=== PATIENT | male | born 1945 | race Caucasian/White ===

== ENCOUNTER 2016-08-08 09:12 | Outpatient (RCR) | payer MEDICARE, MEDICAID ==
--- OUTSIDE RECORDS SUMMARY | 2016-05-16 10:37 | XMS REPORT | Continuity of Care Document ---
Author Author [facility] Organization [facility] Address Unknown Phone Unavailable Care Team Providers Care Coordinator Of Placement Name Role Phone Angela Iam PCP [phone] Source Comments Some departments are not documenting in the electronic medical record. If you do not see the information that you expected, contact Release of Information in the Health Information Management department at [phone] for further assistance in locating additional records.[facility] Active Allergies and Adverse Reactions No Known Allergies Current Medications Prescription Sig. Disp. Refills Start End Date Status Date NAPROXEN SODIUM (ALEVE Take by mouth as Needed. Active PO) omeprazole DR(+) Take 20 mg by mouth Active (PRILOSEC) 20 mg capsule daily. aspirin EC 81 mg tablet Take 81 mg by mouth Active daily. HEPARIN SODIUM,PORCINE Use as directed. Active (HEPARIN (PORCINE) MISC) imiquimod(+) (ALDARA) 5 % Apply to affected area 24 Each 3 11/05/19 Active topical cream every 7 days. 16 niacin (NIACIN) 100 mg Take 500 mg by mouth Active tab three times daily. 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 Basal cell carcinoma 08/09/2012 Social History Tobacco Use Types Packs/Day Years Used Date Former Smoker Pipe 15 Quit: 09/21/2014 Smokeless Tobacco: Never Used Tobacco Cessation: Counseling Given: No Comments: 1 pouch lasts 4.5 days Alcohol Use Drinks/Week oz/Week Comments No Last Filed Vital Signs Vital Sign Reading Time Taken Blood Pressure 118/68 11/05/2015 8:07 AM CDT Pulse 72 11/05/2015 8:07 AM CDT Temperature 36.4 C (97.5 F) 05/31/2015 4:45 PM CANDLES POURER Respiratory Rate 16 11/05/2015 8:07 AM CDT Height 1.727 m (5' 8") 02/07/2016 10:47 AM CDT Weight 112.492 kg (248 lb) 02/07/2016 10:47 AM CDT Body Mass Index 37.72 02/07/2016 10:47 AM CDT Oxygen Saturation 99% 05/31/2015 4:45 PM CANDLES POURER Plan of Care Date Type Specialty Providers Description 07/31/2016 Appointment Dermatology Arjun Bowie MD [address] [facility] [address] [place] [address] [phone] (Fax) Health Maintenance Due Date Last Done Comments Hepatitis C Screening 1945 Physical (Comprehensive) 1954 Exam Pertussis Vaccine 1958 Tetanus Vaccine 02/29/1964 Colorectal Cancer 1997 Screening Shingles Vaccine 2007 Prevnar/Pneumovax (#1) 02/29/2012 Influenza Vaccine 03/23/2016 Results from Last 3 Months Not on file
[2016-06-02 10:10] LABS: BASOPHILS % (AUTO) 1 % (0-10); EOSINOPHILS # (AUTO) 0.2 10^3/uL (0.0-0.3); EOSINOPHILS % (AUTO) 2 % (0-10); LYMPHOCYTES # (AUTO) 2.4 X 10^3 (1.0-4.0); LYMPHOCYTES % (AUTO) 29 % (12-44); MEAN CORPUSCULAR HEMOGLOBIN 33 PG (25-34); MEAN CORPUSCULAR HGB CONC 36 G/DL (32-36); MEAN CORPUSCULAR VOLUME 92 FL (80-99); MEAN PLATELET VOLUME 9.3 FL (7.4-10.4); MONOCYTES # (AUTO) 0.9 X 10^3 (0.0-1.0); MONOCYTES % (AUTO) 10 % (0-12); NEUTROPHILS # (AUTO) 4.9 X 10^3 (1.8-7.8); NEUTROPHILS % (AUTO) 59 % (42-75); PLATELET COUNT 297 10^3/uL (130-400); RED BLOOD COUNT 4.54 10^6/uL (4.35-5.85); RED CELL DISTRIBUTION WIDTH 12.6 % (10.0-14.5); WHITE BLOOD COUNT 8.4 10^3/uL (4.3-11.0)
[2016-06-02 10:40] LABS: ALANINE AMINOTRANSFERASE 50 U/L (0-55); ALBUMIN 4.3 G/DL (3.2-4.5); ANION GAP 8 MMOL/L (5-14); ASPARTATE AMINO TRANSFERASE 23 U/L (5-34); BILIRUBIN,TOTAL 0.7 MG/DL (0.1-1.0); BLOOD UREA NITROGEN 16 MG/DL (7-18); BUN/CREATININE RATIO 14; CALCIUM 9.1 MG/DL (8.5-10.1); CARBON DIOXIDE 25 MMOL/L (21-32); CHLORIDE 106 MMOL/L (98-107); CREATININE SERUM 1.17 MG/DL (0.60-1.30); GFR ESTIMATED > 60; GLUCOSE 94 MG/DL (70-105); SODIUM 139 MMOL/L (135-145)
[2016-06-27 09:02] LABS: BASOPHILS % (AUTO) 0 % (0-10); EOSINOPHILS # (AUTO) 0.2 10^3/uL (0.0-0.3); EOSINOPHILS % (AUTO) 2 % (0-10); LYMPHOCYTES % (AUTO) 24 % (12-44); MEAN CORPUSCULAR HEMOGLOBIN 33 PG (25-34); MEAN CORPUSCULAR HGB CONC 35 G/DL (32-36); MEAN CORPUSCULAR VOLUME 93 FL (80-99); MEAN PLATELET VOLUME 9.2 FL (7.4-10.4); MONOCYTES # (AUTO) 0.7 X 10^3 (0.0-1.0); MONOCYTES % (AUTO) 9 % (0-12); NEUTROPHILS # (AUTO) 5.3 X 10^3 (1.8-7.8); NEUTROPHILS % (AUTO) 64 % (42-75); PLATELET COUNT 282 10^3/uL (130-400); RED BLOOD COUNT 4.38 10^6/uL (4.35-5.85); RED CELL DISTRIBUTION WIDTH 12.2 % (10.0-14.5); WHITE BLOOD COUNT 8.2 10^3/uL (4.3-11.0)
[2016-06-27 09:37] LABS: ALANINE AMINOTRANSFERASE 42 U/L (0-55); ALBUMIN 4.1 G/DL (3.2-4.5); ANION GAP 6 MMOL/L (5-14); ASPARTATE AMINO TRANSFERASE 19 U/L (5-34); BILIRUBIN,TOTAL 0.5 MG/DL (0.1-1.0); BLOOD UREA NITROGEN 16 MG/DL (7-18); BUN/CREATININE RATIO 13; CALCIUM 9.1 MG/DL (8.5-10.1); CARBON DIOXIDE 24 MMOL/L (21-32); CHLORIDE 109 MMOL/L (98-107); CREATININE SERUM 1.19 MG/DL (0.60-1.30); GFR ESTIMATED > 60; GLUCOSE 104 MG/DL (70-105); LACTATE DEHYDROGENASE 212 U/L (125-220); SODIUM 139 MMOL/L (135-145); TOTAL PROTEIN 6.7 G/DL (6.4-8.2)
[~2016-08-08 09:12] MED LIST: ASPI-266 PO; NAPR220C11 PO; OMEP-10 PO
== END 2016-08-14 | disposition home or self-care (01) ==
LOC: ONC 09:12
PROVIDERS: ATTEND Internal Medicine Hematology & Oncology
DX: Z08 Encounter for follow-up examination after completed treatment for malignant neoplasm (principal); Z85.048 Personal history of other malignant neoplasm of rectum, rectosigmoid junction, and anus; Z85.820 Personal history of malignant melanoma of skin; I89.0 Lymphedema, not elsewhere classified; Z87.01 Personal history of pneumonia (recurrent); Z79.899 Other long term (current) drug therapy; Z45.2 Encounter for adjustment and management of vascular access device
CPT/HCPCS: 36591; 80053; 82378; 83615; 85025; 96523; 99213

== ENCOUNTER 2016-12-12 09:08 | Outpatient (RCR) | payer MEDICARE, MEDICAID ==
--- OUTSIDE RECORDS SUMMARY | 2016-09-19 08:02 | XMS REPORT | Continuity of Care Document ---
Author Author [facility] Organization [facility] Address Unknown Phone Unavailable Care Team Providers Care Ager Tender Name Role Phone Angela Iam PCP [phone] Source Comments Some departments are not documenting in the electronic medical record. If you do not see the information that you expected, contact Release of Information in the Health Information Management department at [phone] for further assistance in locating additional records.[facility] Active Allergies and Adverse Reactions No Known [...] by mouth Active tab three times daily. ketoconazole (NIZORAL) 2 Lather into scalp 3 times 120 mL 11 07/31/19 Active % topical shampoo weekly, leave in 10-15 17 minutes before rinsing. 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 SERVICES TECHNICIAN Respiratory Rate 16 11/05/2015 8:07 AM CDT Height 1.727 m (5' 8") 07/31/2016 11:09 AM VISITOR SERVICES TECHNICIAN Weight 108.773 kg (239 lb 12.8 07/31/2016 11:09 AM VISITOR SERVICES TECHNICIAN oz) Body Mass Index 36.47 07/31/2016 11:09 AM VISITOR SERVICES TECHNICIAN Oxygen Saturation 99% 05/31/2015 4:45 PM VISITOR SERVICES TECHNICIAN Plan of Care Date Type Specialty Providers Description 01/25/2017 Appointment Dermatology Arjun Bowie MD [address] [facility] [address] [place] [address] [phone] (Fax) Health Maintenance Due Date Last Done Comments Hepatitis C Screening 1945 Physical (Comprehensive) 1954 Exam Pertussis Vaccine 1958 Tetanus Vaccine 02/29/1964 Colorectal Cancer 1997 Screening Shingles Vaccine 2007 Prevnar/Pneumovax (#1) 02/29/2012 Influenza Vaccine 03/23/2016 Results from Last 3 Months Not on file
== END 2016-12-18 | disposition home or self-care (01) ==
LOC: ONC 09:08
PROVIDERS: ATTEND Internal Medicine Hematology & Oncology
DX: Z08 Encounter for follow-up examination after completed treatment for malignant neoplasm (principal); Z85.048 Personal history of other malignant neoplasm of rectum, rectosigmoid junction, and anus; Z85.820 Personal history of malignant melanoma of skin; I89.0 Lymphedema, not elsewhere classified; Z87.01 Personal history of pneumonia (recurrent); Z79.899 Other long term (current) drug therapy; Z45.2 Encounter for adjustment and management of vascular access device
CPT/HCPCS: 96523

== ENCOUNTER 2017-04-10 10:22 | Outpatient (RCR) | payer MEDICARE, MEDICAID ==
[2017-01-17 15:23] LABS: BASOPHILS % (AUTO) 0 % (0-10); EOSINOPHILS # (AUTO) 0.2 10^3/uL (0.0-0.3); EOSINOPHILS % (AUTO) 1 % (0-10); LYMPHOCYTES # (AUTO) 2.1 X 10^3 (1.0-4.0); LYMPHOCYTES % (AUTO) 20 % (12-44); MEAN CORPUSCULAR HEMOGLOBIN 33 PG (25-34); MEAN CORPUSCULAR HGB CONC 36 G/DL (32-36); MEAN CORPUSCULAR VOLUME 92 FL (80-99); MEAN PLATELET VOLUME 9.2 FL (7.4-10.4); MONOCYTES # (AUTO) 0.7 X 10^3 (0.0-1.0); MONOCYTES % (AUTO) 7 % (0-12); NEUTROPHILS # (AUTO) 7.4 X 10^3 (1.8-7.8); NEUTROPHILS % (AUTO) 71 % (42-75); PLATELET COUNT 313 10^3/uL (130-400); RED BLOOD COUNT 4.56 10^6/uL (4.35-5.85); RED CELL DISTRIBUTION WIDTH 12.4 % (10.0-14.5); WHITE BLOOD COUNT 10.4 10^3/uL (4.3-11.0)
[2017-01-17 15:56] LABS: BILIRUBIN,TOTAL 0.3 MG/DL (0.1-1.0); CALCIUM 9.3 MG/DL (8.5-10.1); CREATININE SERUM 1.27 MG/DL (0.60-1.30); ICTERUS 0.1 (-100-1.9); POTASSIUM 4.2 MMOL/L (3.6-5.0); TOTAL PROTEIN 8.2 GM/DL (6.4-8.2)
== END 2017-04-17 | disposition home or self-care (01) ==
LOC: ONC 10:22
PROVIDERS: ATTEND Internal Medicine Hematology & Oncology
DX: Z08 Encounter for follow-up examination after completed treatment for malignant neoplasm (principal); Z85.048 Personal history of other malignant neoplasm of rectum, rectosigmoid junction, and anus; Z85.820 Personal history of malignant melanoma of skin; I89.0 Lymphedema, not elsewhere classified; Z87.01 Personal history of pneumonia (recurrent); Z79.899 Other long term (current) drug therapy; Z45.2 Encounter for adjustment and management of vascular access device
CPT/HCPCS: 36591; 80053; 82378; 83615; 85025; 96523

== ENCOUNTER → 2017-08-20 | Outpatient (RCR) | payer MEDICARE, MEDICAID ==
[2017-07-10 08:58] LABS: BASOPHILS % (AUTO) 0 % (0-10); EOSINOPHILS # (AUTO) 0.2 10^3/uL (0.0-0.3); EOSINOPHILS % (AUTO) 2 % (0-10); HEMATOCRIT 40 % (40-54); HEMOGLOBIN 14.2 G/DL (13.3-17.7); LYMPHOCYTES # (AUTO) 2.2 X 10^3 (1.0-4.0); LYMPHOCYTES % (AUTO) 26 % (12-44); MEAN CORPUSCULAR HEMOGLOBIN 33 PG (25-34); MEAN CORPUSCULAR HGB CONC 35 G/DL (32-36); MEAN CORPUSCULAR VOLUME 95 FL (80-99); MEAN PLATELET VOLUME 9.2 FL (7.4-10.4); MONOCYTES # (AUTO) 0.9 X 10^3 (0.0-1.0); MONOCYTES % (AUTO) 11 % (0-12); NEUTROPHILS # (AUTO) 5.1 X 10^3 (1.8-7.8); NEUTROPHILS % (AUTO) 60 % (42-75); PLATELET COUNT 261 10^3/uL (130-400); RED BLOOD COUNT 4.25 10^6/uL (4.35-5.85); WHITE BLOOD COUNT 8.5 10^3/uL (4.3-11.0)
[2017-07-10 09:18] LABS: ALANINE AMINOTRANSFERASE 39 U/L (0-55); ALBUMIN 3.9 GM/DL (3.2-4.5); ALKALINE PHOSPHATASE 48 U/L (40-136); BILIRUBIN,TOTAL 0.4 MG/DL (0.1-1.0); BUN/CREATININE RATIO 17; CALCIUM 8.9 MG/DL (8.5-10.1); CARBON DIOXIDE 25 MMOL/L (21-32); CHLORIDE 109 MMOL/L (98-107); CREATININE SERUM 1.05 MG/DL (0.60-1.30); GFR ESTIMATED > 60; GLUCOSE 94 MG/DL (70-105); POTASSIUM 4.2 MMOL/L (3.6-5.0); SODIUM 141 MMOL/L (135-145); TOTAL PROTEIN 6.6 GM/DL (6.4-8.2)
== END | disposition home or self-care (01) ==
LOC: ONC 05-22 10:07
PROVIDERS: ATTEND Internal Medicine Hematology & Oncology
DX: Z08 Encounter for follow-up examination after completed treatment for malignant neoplasm (principal); Z85.048 Personal history of other malignant neoplasm of rectum, rectosigmoid junction, and anus; Z85.820 Personal history of malignant melanoma of skin; I89.0 Lymphedema, not elsewhere classified; Z87.01 Personal history of pneumonia (recurrent); Z79.899 Other long term (current) drug therapy; Z45.2 Encounter for adjustment and management of vascular access device
CPT/HCPCS: 36591; 80053; 82378; 83615; 85025; 96523

== ENCOUNTER 2017-12-25 08:30 | Outpatient (RCR) | payer MEDICARE, MEDICAID ==
[2017-12-25 09:09] LABS: BASOPHILS % (AUTO) 0 % (0-10); EOSINOPHILS # (AUTO) 0.2 10^3/uL (0.0-0.3); EOSINOPHILS % (AUTO) 2 % (0-10); HEMATOCRIT 41 % (40-54); HEMOGLOBIN 14.5 G/DL (13.3-17.7); LYMPHOCYTES # (AUTO) 2.2 X 10^3 (1.0-4.0); LYMPHOCYTES % (AUTO) 29 % (12-44); MEAN CORPUSCULAR HEMOGLOBIN 33 PG (25-34); MEAN CORPUSCULAR HGB CONC 35 G/DL (32-36); MEAN CORPUSCULAR VOLUME 95 FL (80-99); MEAN PLATELET VOLUME 9.4 FL (7.4-10.4); MONOCYTES # (AUTO) 0.9 X 10^3 (0.0-1.0); MONOCYTES % (AUTO) 12 % (0-12); NEUTROPHILS # (AUTO) 4.4 X 10^3 (1.8-7.8); NEUTROPHILS % (AUTO) 57 % (42-75); PLATELET COUNT 278 10^3/uL (130-400); RED BLOOD COUNT 4.36 10^6/uL (4.35-5.85); RED CELL DISTRIBUTION WIDTH 12.4 % (10.0-14.5); WHITE BLOOD COUNT 7.7 10^3/uL (4.3-11.0)
[2017-12-25 09:52] LABS: ALANINE AMINOTRANSFERASE 53 U/L (0-55); ALBUMIN 4.1 GM/DL (3.2-4.5); ALKALINE PHOSPHATASE 55 U/L (40-136); BILIRUBIN,TOTAL 0.6 MG/DL (0.1-1.0); BUN/CREATININE RATIO 17; CARBON DIOXIDE 21 MMOL/L (21-32); CHLORIDE 109 MMOL/L (98-107); CREATININE SERUM 1.03 MG/DL (0.60-1.30); GFR ESTIMATED > 60; GLUCOSE 103 MG/DL (70-105); POTASSIUM 4.3 MMOL/L (3.6-5.0); SODIUM 139 MMOL/L (135-145); TOTAL PROTEIN 6.9 GM/DL (6.4-8.2)
== END 2017-12-31 | disposition home or self-care (01) ==
LOC: ONC 08:30
PROVIDERS: ATTEND Internal Medicine Hematology & Oncology
DX: Z08 Encounter for follow-up examination after completed treatment for malignant neoplasm (principal); Z85.048 Personal history of other malignant neoplasm of rectum, rectosigmoid junction, and anus; Z85.820 Personal history of malignant melanoma of skin; I89.0 Lymphedema, not elsewhere classified; Z87.01 Personal history of pneumonia (recurrent); Z79.899 Other long term (current) drug therapy; Z45.2 Encounter for adjustment and management of vascular access device
CPT/HCPCS: 36591; 80053; 85025; 96523

== ENCOUNTER 2018-03-19 11:10 | Outpatient (RCR) | payer MEDICARE, MEDICAID | END 2018-03-22 | disposition home or self-care (01) | LOC: ONC 11:10 | PROVIDERS: ATTEND Internal Medicine Hematology & Oncology | DX: Z08 Encounter for follow-up examination after completed treatment for malignant neoplasm (principal); Z85.048 Personal history of other malignant neoplasm of rectum, rectosigmoid junction, and anus; Z85.820 Personal history of malignant melanoma of skin; I89.0 Lymphedema, not elsewhere classified; Z87.01 Personal history of pneumonia (recurrent); Z79.899 Other long term (current) drug therapy; Z45.2 Encounter for adjustment and management of vascular access device | CPT/HCPCS: 96523 ==

== ENCOUNTER 2018-06-10 05:38 | Outpatient (CLI) | payer MEDICARE, MEDICAID ==
[~2018-06-10] VITALS: Ht 172.7 cm; Wt 117.9 kg
[2018-06-10] MEDS ORDERED: NIAC500T8 PO (14:05)
[2018-06-10] MEDS ORDERED: NAPR220C46 PO (14:05)
[2018-06-10] MEDS ORDERED: ASPI-999 PO (14:05)
== END 2018-06-10 14:12 | disposition home or self-care (01) ==
LOC: PREOP 05:38
PROVIDERS: ATTEND Surgery
DX: Z01.818 Encounter for other preprocedural examination (principal)

== ENCOUNTER 2018-06-17 08:27 | Day surgery (SDC) | payer MEDICARE, MEDICAID ==
[~2018-06-17] VITALS: Ht 172.7 cm; Wt 117.9 kg
[~2018-06-17 08:27] MED LIST changes: +ASPI-999 PO; +NAPR220C46 PO; +NIAC500T8 PO
[2018-06-17] MEDS ORDERED: NS IV 500 ML 500 ML ONE (08:36)
[2018-06-17] MEDS ORDERED: NS IV 500 ML 500 ML IV PRN (08:39)
[2018-06-17] MEDS ORDERED: MIDAZOLAM 2 MG/2 ML (VERSED) VIAL IVP ONE (08:45)
[2018-06-17] MEDS ORDERED: fentaNYL INJECTION 100 MCG/2 ML AMP IVP ONE (08:45)
[2018-06-17 09:03] VITALS: BP 165/79
--- OUTSIDE RECORDS SUMMARY | 2018-06-17 09:05 | XMS REPORT ---
Author Author ALICE ORDOÑEZ Organization [employer] Address Unknown Phone Unavailable Care Team Providers Care Threader Operator Name Role Phone ALICE ORDOÑEZ CP Unavailable Allergies, Adverse Reactions, Alerts Substance Reaction Event Type N.K.D.A. Info Not Available Non Drug Allergy Problems Problem Type Condition Code Onset Dates Condition Status Problem Esophageal reflux 530.81 Active Problem Malignant neoplasm of rectum 154.1 Active Problem TDAP DX V06.1 Active Assessment Foot pain, left M79.672 Active Problem Personal history of malignant melanoma of skin V10.82 Active Problem Acute upper respiratory infections of unspecified site 465.9 Active Medications Medication Code System Code Instructions Start Date End Date Status Dosage Prilosec [facility] [address]-27 20 mg Sep 19, 2012 take 1 capsule (20 mg) by oral route once daily before a meal Procedures Procedure Coding System Code Date Office Visit, Est Pt., Level 3 CPT-4 66545 May 20, 2015 [facility] VISIT ESTABLISHED PATIENT CPT-4 G0467 May 20, 2015 Vital Signs Date/Time: May 20, 2015 Cardiac Monitoring Heart Rate 72 bpm Temperature 97 F Weight 247 lbs Blood Pressure Diastolic 70 mmHg Blood Pressure Systolic 130 mmHg Results No Known Results Summary Purpose [employer] Submission
--- OUTSIDE RECORDS SUMMARY | 2018-06-17 09:05 | XMS REPORT | Clinical Summary ---
Author Author [facility] Organization [facility] Address Unknown Phone Unavailable Care Team Providers Care Crane Operator Name Role Phone Malik Wayne MD Unavailable Krystal Zamudio MD Unavailable Iam Miller MD 21 Arjun Bowie MD Unavailable Silas Loredo MD Unavailable Claudia Charles MD Unavailable Sheela Guan MD Unavailable Unavailable Ashleigh Izaguirre MD Unavailable Janet Arizmendi MD Unavailable Unavailable Oni Russo MD Unavailable Armen Acevedo MD Unavailable Mehreen Hoff MD Unavailable Dominique Al MD Unavailable Unavailable Sally Nava RN Unavailable Unavailable Reza Henriquez MD Unavailable Nikki Hawkins RN Unavailable Unavailable Iam Miller MD PCP Unavailable Chasity Tapia RN Unavailable Unavailable Peri Jay RN Unavailable Unavailable Mona Angeles RN Unavailable Unavailable Jalen Hess MD Unavailable Unavailable Christina Dior PA-C Unavailable Dinah Rene MD Unavailable Unavailable Free, Shawna HENRY Unavailable Source Comments Some departments are not documenting in the electronic medical record. If you do not see the information that you expected, contact Release of Information in the Health Information Management department at [phone] for further assistance in locating additional records.[facility] Allergies No Known Allergies Current Medications Prescription Sig. Disp. Refills Start End Date Status Date aspirin EC 81 mg tablet Take 81 mg by mouth Active daily. niacin (NIACIN) 100 mg Take 500 mg by mouth Active tab three times daily. ketoconazole (NIZORAL) 2 Lather into scalp 3 times 120 mL 11 10/05/19 Active % topical weekly, leave in - 18 shampooIndications: minutes before rinsing. Seborrheic dermatitis triamcinolone acetonide Apply topically to 30 g 3 01/16/20 Active (KENALOG) 0.1 % topical affected area twice 18 ointmentIndications: daily. Arthropod bite, initial encounter imiquimod(+) (ALDARA) 5 % Apply thin layer to right 24 each 3 Active topical creamIndications: cheek biopsy site with 1 18 Actinic keratosis cm periphery at night M-F x 6 weeks. Can wash off in morning. Use sunprotection. 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 Basal cell carcinoma 08/09/2012 Family History Medical History Relation Name Comments Basal Cell Carcinoma Brother Cancer Brother Hypertension Brother Cancer Father kidney Cancer-Ovarian Mother Cancer-Prostate Paternal Uncle Basal Cell Carcinoma Sister Cancer Sister Cancer-Ovarian Sister Melanoma Neg Hx Relation Name Status Comments Brother Father Mother Paternal Uncle Sister Social History Tobacco Use Types Packs/Day Years Used Date Former Smoker Pipe 15 Quit: 09/21/2014 Smokeless Tobacco: Never Used Tobacco Cessation: Counseling Given: No Comments: 1 pouch lasts 4.5 days Alcohol Use Drinks/Week oz/Week Comments No Sex Assigned at Date Recorded Not on file Last Filed Vital Signs Vital Sign Reading Time Taken Blood Pressure 118/68 11/05/2015 8:07 AM CDT Pulse 72 11/05/2015 8:07 AM CDT Temperature 36.4 C (97.5 F) 05/31/2015 4:[address] LIGHT LAMP CLEANER Respiratory Rate 16 11/05/2015 8:07 AM CDT Oxygen Saturation 99% 05/31/2015 4:[address] LIGHT LAMP CLEANER Inhaled Oxygen - - Concentration Weight 118.5 kg (261 lb 3.2 oz) 01/15/2018 11:06 AM CDT Height 172.7 cm (5' 8") 01/15/2018 11:06 AM CDT Body Mass Index 39.72 01/15/2018 11:06 AM CDT Plan of Treatment Health Maintenance Due Date Last Done Comments HEPATITIS C SCREENING 1945 PHYSICAL (COMPREHENSIVE) 1954 EXAM DTAP/TDAP VACCINES (1 - 1965 Tdap) COLORECTAL CANCER 1997 SCREENING SHINGLES RECOMBINANT 1997 VACCINE (1 of 2) ABDOMINAL AORTIC ANEURYSM 02/29/2012 SCREENING PNEUMONIA (PCV13/PPSV23) 02/29/2012 VACCINES (1 of 2 - PCV13) INFLUENZA VACCINE 02/20/2018 Results Not on filefrom Last 3 Months
--- OUTSIDE RECORDS SUMMARY | 2018-06-17 09:05 | XMS REPORT ---
Author Author GELACIO COELLO Organization [facility] Address [address] [place] [address] Care Team Providers Care Table Cut Off Saw Operator Name Role Phone COELLO GELACIO Unavailable PROBLEMS Type Condition ICD9-CM Code CXH46-ZK Code Onset Dates Condition Status SNOMED Code Problem TDAP DX V06.1 Active Problem Malignant neoplasm of rectum 154.1 Active 217539899 Problem Personal history of malignant melanoma of skin V10.82 Active 019031817354 Problem Acute upper respiratory infections of unspecified site 465.9 Active 60267201 Problem Esophageal reflux 530.81 Active [id number] ALLERGIES No Known Allergies ENCOUNTERS Encounter Location Date Diagnosis [facility] [id number] [place] [address] [phone] Dec, [facility] [address] [place] [address] 90644- [phone] Aug, Dental examination Z01.20 [facility] [id number] [place] [address] [phone] Aug, Dental caries K02.[address] [facility] [id number] [phone] May, Dental examination Z01.20 [facility] [address] [place] [address] 97065- [phone] Apr, Dental examination Z01.20 [facility] [address] [place] [address] [phone] Jan, Dental examination Z01.20 [facility] [id number] [place] [address] [phone] Oct, Encounter for dental examination Z01.20 [facility] [id number] [place] [address] [phone] Oct, Dental caries K02.9 [facility] [address] [facility] [id number] [phone] Oct, Encounter for dental examination Z01.20 [facility] [address] [facility] [id number] [phone] Oct, Dental caries K02.9 [facility] [address] [address] 2546 Jul, Dental examination Z01.20 [address] [facility] [id number] [phone] Jun, Dental examination Z01.20 [facility] [id number] [place] [address] [phone] Apr, Foot pain, left M79.672 [facility] [id number] [phone] Dec, TDAP DX V06.1 [facility] [id number] [place] [address] [phone]- [phone] Oct, [facility] [address] [place] [address] [phone] Oct, [facility] [address] [place] [address] 66292- [phone] Aug, [facility] [address] [address] Aug, IMMUNIZATIONS No Known Immunizations SOCIAL HISTORY Never Assessed REASON FOR VISIT 3 mo recall PLAN OF CARE Activity Details Follow Up prn Reason: VITAL SIGNS Blood pressure systolic 129 mmHg 2017-05-21 Blood pressure diastolic 70 mmHg 2017-05-21 MEDICATIONS Medication Instructions Dosage Frequency Start Date End Date Duration Status Aspirin Adult Low Dose Active RESULTS No Results PROCEDURES Procedure Date Ordered Result Body Site PROPHYLAXIS - ADULT May 21, 2017 INSTRUCTIONS MEDICATIONS ADMINISTERED No Known Medications MEDICAL (GENERAL) HISTORY Type Description Date Medical History acid reflux Medical History dx in 2008 with stage 4 rectal cancer and stage 4 melanoma, after surgery chemo and radiation were done. Sees for oncology every 3-6 months for f/u. Surgical History partial colectomy-rectal cancer 2009 Surgical History multiple colonoscopy for f/u Surgical History right foot surgery for melonoma, and spot on lt cheek removed 2008 Surgical History lymph nodes removed right side of groin Surgical History Cataract surgery both eyes 05/2016 Surgical History eye surgery 2017 Hospitalization History cancer 2009
--- OUTSIDE RECORDS SUMMARY | 2018-06-17 09:05 | XMS REPORT ---
Author Author RUBIAMONIQUE HANSEN [facility] Address Unknown Care Team Providers Care Banquet Food Server Name Role Phone MONIQUE CLANCY Unavailable PROBLEMS Type Condition ICD9-CM Code APN48-CJ Code Onset Dates Condition Status SNOMED Code Problem Periodontitis K05.30 Active 15451612 Problem TDAP DX V06.1 Active Problem Esophageal reflux 530.81 Active 425395210 Problem Personal history of malignant melanoma of skin V10.82 Active 077525451196 Problem Malignant neoplasm of rectum 154.1 Active 245682873 Problem Acute upper respiratory infections of unspecified site 465.9 Active 77871399 ALLERGIES No Known Allergies ENCOUNTERS Encounter Location Date Diagnosis [facility] [id number] [place] [address] [phone] Apr, [facility] [place] [address] [place] [address] 18462- 2886 Dec, Periodontitis K05.30 [facility] [place] [id number] [place] [address] [phone] 26 Aug, 2017 Dental examination Z01.20 [facility] [address] [id number] [phone] Aug, Dental caries [address] [facility] [address] [id number] [place] [phone] May, Dental examination Z01.20 [facility] [place] [id number] [place] [address] [phone]- [phone] Apr, Dental examination Z01.20 [facility] [id number] [place] [address] [phone] Jan, Dental examination Z01.20 [facility] [address] [place] [address] [phone] Oct, Encounter for dental examination Z01.20 [facility] [address] [facility] [id number] [phone] Oct, Dental caries K02.9 [facility] [address] [place] [address] [phone] Oct, Encounter for dental examination Z01.20 [facility] [address] [phone] Oct, Dental caries K02.9 [facility] [place] [address] [place] [address] 56950- 2546 Jul, Dental examination Z01.20 [address] [phone] Jun, Dental examination Z01.20 [facility] [id number] [phone] Apr, Foot pain, left M79.672 [facility] [id number] [place] [address] [phone] Dec, TDAP DX V06.1 [facility] [place] [id number] [place] [address] [phone]- [phone] Oct, [facility] [place] [id number] [place] [address] 65201- 2392 Oct, [facility] [place] [address] [place] [address] 05486- [phone] Aug, [facility] [place] [id number] [place] [address] [phone]- [phone] Aug, IMMUNIZATIONS No Known Immunizations SOCIAL HISTORY Never Assessed REASON FOR VISIT TE PLAN OF CARE Activity Details Follow Up prn Reason:3 mo recall VITAL SIGNS MEDICATIONS Medication Instructions Dosage Frequency Start Date End Date Duration Status Aspirin Adult Low Dose Active Prilosec 20 mg take 1 capsule (20 mg) by oral route once daily before a meal Aug, Not-Taking Aleve Active RESULTS No Results PROCEDURES Procedure Date Ordered Result Body Site EXTRAC ERUPTED TOOTH/EXPOSED ROOT Sep 05, 2017 INSTRUCTIONS MEDICATIONS ADMINISTERED No Known Medications MEDICAL (GENERAL) HISTORY Type Description Date Medical History acid reflux Medical History dx in 2008 with stage 4 rectal cancer and stage 4 melanoma, after surgery chemo and radiation were done. Sees for oncology every 3-6 months for f/u. Surgical History partial colectomy-rectal cancer 2008 Surgical History multiple colonoscopy for f/u Surgical History right foot surgery for melonoma, and spot on lt cheek removed 2008 Surgical History lymph nodes removed right side of groin Surgical History Cataract surgery both eyes 05/2016 Surgical History eye surgery 2017 Hospitalization History cancer 2009
--- OUTSIDE RECORDS SUMMARY | 2018-06-17 09:05 | XMS REPORT ---
Author Author GELACIO COELLO [facility] Address [address] [place] [address] Care Team Providers Care Shell Mold Bonding Machine Operator Name Role Phone GELACIO COELLO Unavailable PROBLEMS Type Condition ICD9-CM Code ITF40-TW Code Onset Dates Condition Status SNOMED Code Problem Periodontitis K05.30 Active 29287824 Problem TDAP DX V06.1 Active Problem Esophageal reflux 530.81 Active 731492755 Problem Personal history of malignant melanoma of skin V10.82 Active 224702930491 Problem Malignant neoplasm of rectum 154.1 Active 298226859 Problem Acute upper respiratory infections of unspecified site 465.9 Active 63867548 ALLERGIES No Information ENCOUNTERS Encounter Location Date Diagnosis [facility] [address] [facility] [id number] [place] [address] [phone] May, [facility] [id number] [place] [address] [phone]- [phone] Mar, [facility] [id number] [place] [address] [phone]- 2609 Dec, Periodontitis K05.30 [facility] [address] [place] [address] [phone] 26 Aug, 2017 Dental examination Z01.20 [facility] [address] [facility] [id number] [place] [address] [phone] Aug, 2017 Dental caries K02.[address] [id number] [phone] May, Dental examination Z01.20 [facility] [address], [place] [address] 2546 Apr, Dental examination Z01.20 [facility] [address] [facility] [id number] [place] [address] [id number] Jan, Dental examination Z01.20 [facility] [address] [facility] [id number] [phone] Oct, Encounter for dental examination Z01.20 [facility] [address] [phone] Oct, Dental caries K02.9 [facility] [address] [phone] Oct, Encounter for dental examination Z01.20 [facility] [address] [id number] Oct, Dental caries K02.9 [facility] [address] [place] [address] 52503- 2546 Jul, Dental examination Z01.[address] [id number] [phone] Jun, Dental examination Z01.20 [facility] [id number] [id number] Apr, Foot pain, left M79.672 [facility] [address] [place] [address] [phone] Dec, TDAP DX V06.1 [facility] [address] [place] [address] [phone] Oct, [facility] [address] [place] [address] [phone]- [phone] Oct, [facility] [address] [place] [address] [phone]- [phone] Aug, [facility] [id number] [place] [address] [phone] Aug, IMMUNIZATIONS No Known Immunizations SOCIAL HISTORY Never Assessed REASON FOR VISIT Requests return call PLAN OF CARE VITAL SIGNS MEDICATIONS Unknown Medications RESULTS No Results PROCEDURES No Known procedures INSTRUCTIONS MEDICATIONS ADMINISTERED No Known Medications MEDICAL [...]
--- OUTSIDE RECORDS SUMMARY | 2018-06-17 09:05 | XMS REPORT ---
Author Author KATHY GO [facility] Address [address] [place] [address] Phone Unavailable Care Team Providers Care Bus Mechanic Name Role Phone KATHY GO Unavailable Unavailable PROBLEMS Type Condition ICD9-CM Code [id number] Code Onset Dates Condition Status SNOMED Code Problem TDAP DX V06.1 Active Problem Malignant neoplasm of rectum 154.1 Active 069408510 Problem Personal history of malignant melanoma of skin V10.82 Active 761322540117 Problem Acute upper respiratory infections of unspecified site 465.9 Active 82341578 Problem Esophageal reflux 530.81 Active 618913584 ALLERGIES No Known Allergies ENCOUNTERS Encounter Location Date Diagnosis [facility] [address] [place] [address] Dec, [facility] [id number] [place] [address]5848- 7902 Aug, Dental examination Z01.20 [facility] [id number] [place] [address] [phone] Aug, Dental caries K02.[address] [id number] [phone] May, Dental examination Z01.20 [facility] [address] [place] [address] [phone] Apr, Dental examination Z01.20 [facility] [id number] [place] [address] [phone] Jan, Dental examination Z01.20 [facility] [id number] [place] [address] [phone] Oct, Encounter for dental examination Z01.20 [facility] [id number] [place] [address] [phone] Oct, Dental caries K02.9 [facility] [address] [facility] [id number] [phone] 07 Oct, 2016 Encounter for dental examination Z01.20 [facility] [address] [phone] Oct, Dental caries K02.9 [facility] [address] [address] Jul, Dental examination Z01.20 [address] [facility] [id number] [phone] Jun, Dental examination Z01.20 [facility] [id number] [phone] Apr, Foot pain, left M79.672 [facility] [address] [phone] Dec, TDAP DX V06.1 [facility] [address] [place] [address] [phone]- [phone] Oct, [facility] [address] [place] [address] 21948- 0790 Oct, [facility] [address] [place] [address] 78515- 2488 Aug, [facility] [address], [place] [address] Aug, IMMUNIZATIONS No Known Immunizations SOCIAL HISTORY Never Assessed REASON FOR VISIT PROPHY PLAN OF CARE Activity Details Follow Up 3 Months Reason:recall VITAL SIGNS Blood pressure systolic 130 mmHg 2017-02-12 Blood pressure diastolic 71 mmHg 2017-02-12 MEDICATIONS Medication Instructions Dosage Frequency Start Date End Date Duration Status Aspirin Adult Low Dose Active RESULTS No Results PROCEDURES Procedure Date Ordered Result Body Site Periodontal maint procedures February 12, 2017 Billing Notes on claim February 12, 2017 INSTRUCTIONS MEDICATIONS ADMINISTERED No Known Medications [...]
--- OUTSIDE RECORDS SUMMARY | 2018-06-17 09:05 | XMS REPORT ---
Author Author [facility]IR[facility] Address [address] [place] [address] Care Team Providers Care Psychometric Examiner Name Role Phone SHREE KIRK Unavailable PROBLEMS Type Condition ICD9-CM Code [id number]-[id number] Code Onset Dates Condition Status SNOMED Code Problem TDAP DX V06.1 Active Problem Esophageal reflux 530.81 Active 759666880 Problem Acute upper respiratory infections of unspecified site 465.9 Active 14783694 Assessment Dental examination Z01.20 Jun, Active 855713367 Problem Malignant neoplasm of rectum 154.1 Active 531670639 Problem Personal history of malignant melanoma of skin V10.82 Active 852048442728 ALLERGIES Substance Reaction Event Type Date Status N.K.D.A. Unknown Non Drug Allergy Jun, Unknown SOCIAL HISTORY No smoking Hx information available PLAN OF CARE VITAL SIGNS Blood pressure systolic 145 mmHg 2016-07-03 Blood pressure diastolic 68 mmHg 2016-07-03 MEDICATIONS Medication Instructions Dosage Frequency Start Date End Date Duration Status Aspirin Adult Low Dose Active Prilosec 20 mg take 1 capsule (20 mg) by oral route once daily before a meal Aug, Active RESULTS No Results PROCEDURES Procedure Date Ordered Related Diagnosis Body Site COMP ORAL EVALUATION - NEW/EST PT Jul 03, 2016 INTRAORL - CMPL SERIES CODE 80267 Jul 03, 2016 IMMUNIZATIONS No Known Immunizations
--- OUTSIDE RECORDS SUMMARY | 2018-06-17 09:05 | XMS REPORT ---
Author Author GELACIO COELLO Organization [facility] Address [address] [place] [address] Care Team Providers Care Histologist Technologist Name Role Phone GELACIO COELLO Unavailable PROBLEMS Type Condition ICD9-CM Code [id number] Code Onset Dates Condition Status SNOMED Code Problem Periodontitis K05.30 Active 84755399 Problem TDAP DX V06.1 Active Problem Esophageal reflux 530.81 Active 484762021 Problem Personal history of malignant melanoma of skin V10.82 Active 114830521789 Problem Malignant neoplasm of rectum 154.1 Active 767700691 Problem Acute upper respiratory infections of unspecified site 465.9 Active 77073001 ALLERGIES No Known Allergies ENCOUNTERS Encounter Location Date Diagnosis [facility] [address] [place] [phone] Apr, [facility] [address] [place] [address] [phone] Dec, Periodontitis K05.30 [facility] [address] [place] [address] [phone] Aug, Dental examination Z01.20 [facility] [address] [id number] [place] [phone] Aug, Dental caries K02.9 [address] [facility] [id number] [phone] May, Dental examination Z01.20 [facility] [address] [place] [address]483- [phone] Apr, Dental examination Z01.20 [facility] [address] [facility] [id number] [place] [address] [phone] Jan, Dental examination Z01.20 [facility] [id number] [place] [phone] Oct, Encounter for dental examination Z01.20 [facility] [address] [id number] [place] [phone] Oct, Dental caries K02.9 [facility] [address] [phone] Oct, Encounter for dental examination Z01.20 [facility] [address] [facility] [id number] [place] [phone] Oct, Dental caries K02.9 [facility] [address] [facility] [place] [id number] [place] [address] Jul, Dental examination Z01.[address] [id number][place] [phone] Jun, Dental examination Z01.20 [facility] [id number] [phone] Apr, Foot pain, left M79.672 [facility] [id number][place] [phone] Dec, TDAP DX V06.1 [facility] [address] [place] [phone]- [phone] Oct, [facility] [address] [address] Oct, [facility] [address] [address] Aug, [facility] [address] [address] Aug, IMMUNIZATIONS No Known Immunizations SOCIAL HISTORY Never Assessed REASON FOR VISIT 3 mo recare PLAN OF CARE Activity Details Follow Up 4 Months Reason:recare VITAL SIGNS MEDICATIONS Medication Instructions Dosage Frequency Start Date End Date Duration Status Aspirin Adult Low Dose Active Prilosec 20 mg take 1 capsule (20 mg) by oral route once daily before a meal Aug, Not-Taking Multivitamin Adult - Active Aleve Active RESULTS No Results PROCEDURES Procedure Date Ordered Result Body Site PROPHYLAXIS - ADULT December 25, 2017 INSTRUCTIONS MEDICATIONS ADMINISTERED No Known Medications [...]
--- OUTSIDE RECORDS SUMMARY | 2018-06-17 09:05 | XMS REPORT ---
Author Author GELACIO COELLO Organization [facility] Address [address] [place] [address] Care Team Providers Care Bag Bleacher Name Role Phone GELACIO COELLO Unavailable PROBLEMS Type Condition ICD9-CM Code NFX03-AK Code Onset Dates Condition Status SNOMED Code Problem Encounter for dental examination Z01.20 Active 254632839 Problem TDAP DX V06.1 Active Problem Esophageal reflux 530.81 Active 150226941 Problem Personal history of malignant melanoma of skin V10.82 Active 500054380995 Problem Malignant neoplasm of rectum 154.1 Active 552521562 Problem Acute upper respiratory infections of unspecified site 465.9 Active 53092901 ALLERGIES Substance Reaction Event Type Date Status N.K.D.A. Unknown Non Drug Allergy Jul, Unknown SOCIAL HISTORY No smoking Hx information available PLAN OF CARE Activity Details Follow Up prn Reason:ext/srp VITAL SIGNS Heart Rate 90 bpm 2016-08-15 Blood pressure systolic 143 mmHg 2016-08-15 Blood pressure diastolic 72 mmHg 2016-08-15 MEDICATIONS Medication Instructions Dosage Frequency Start Date End Date Duration Status Prilosec 20 mg take 1 capsule (20 mg) by oral route once daily before a meal Aug, Active Aspirin Adult Low Dose Active RESULTS No Results PROCEDURES Procedure Date Ordered Related Diagnosis Body Site Periodontal scaling and root Aug 15, 2016 IMMUNIZATIONS No Known Immunizations
--- OUTSIDE RECORDS SUMMARY | 2018-06-17 09:05 | XMS REPORT ---
Author Author GELACIO COELLO Organization [facility] Address [address] [place] [address] Care Team Providers Care Body Corporate Manager Name Role Phone GELACIO COELLO Unavailable PROBLEMS Type Condition ICD9-CM Code FQZ52-HE Code Onset Dates Condition Status SNOMED Code Problem Periodontitis K05.30 Active 52828682 Problem TDAP DX V06.1 Active Problem Esophageal reflux 530.81 Active 856875588 Problem Personal history of malignant melanoma of skin V10.82 Active 832980118218 Problem Malignant neoplasm of rectum 154.1 Active 543166743 Problem Acute upper respiratory infections of unspecified site 465.9 Active 04293390 ALLERGIES No Known Allergies ENCOUNTERS Encounter Location Date Diagnosis [facility] [address] [place] [phone] Apr, [facility] [address] [place] [address] [phone]- [phone] Dec, Periodontitis K05.30 [facility] [address] [place] [address] [phone] 26 Aug, 2017 Dental examination Z01.20 [facility] [address] [id number] [phone] Aug, Dental caries K02.9 [place] [facility] [id number] [phone] May, Dental examination Z01.20 [facility] [address] [place] [phone] Apr, Dental examination Z01.20 [facility] [address] [facility] [id number] [place] [address] [phone] Jan, Dental examination Z01.20 [facility] [id number] [place] [address] [phone] Oct, Encounter for dental examination Z01.20 [facility] [address] [id number] [phone] Oct, Dental caries K02.9 [facility] [address] [id number] [phone] Oct, Encounter for dental examination Z01.20 [facility] [address] [facility] [id number] [phone] Oct, Dental caries K02.9 [facility] [address] [facility] [id number], [place] [address] Jul, Dental examination Z01.[address] [id number] [phone] Jun, Dental examination Z01.20 [facility] [id number], [place] [phone] Apr, Foot pain, left M79.672 [facility] [id number], [place] [phone] Dec, TDAP DX V06.1 [facility] [address] [place] [address] [phone] Oct, [facility] [address] [address] Oct, [facility] [address]00565100[place] [address] Aug, [facility] [address]65100[place] [address] Aug, IMMUNIZATIONS No Known Immunizations SOCIAL HISTORY Never Assessed REASON FOR VISIT Perio Maint PLAN OF CARE Activity Details Follow Up 3 Months Reason:recare VITAL SIGNS MEDICATIONS Medication Instructions Dosage Frequency Start Date End Date Duration Status Aspirin Adult Low Dose Active Prilosec 20 mg take 1 capsule (20 mg) by oral route once daily before a meal Aug, Not-Taking Aleve Active Multivitamin Adult - Active RESULTS No Results PROCEDURES Procedure Date Ordered Result Body Site Periodontal maint procedures Sep 17, 2017 Billing Notes on claim Sep 17, 2017 INSTRUCTIONS MEDICATIONS ADMINISTERED No Known Medications [...]
--- OUTSIDE RECORDS SUMMARY | 2018-06-17 09:07 | XMS REPORT | Continuity of Care Document ---
Demographics Preferred Language Unknown Marital Status Unknown Zoroastrianism Affiliation Unknown Race Unknown Ethnic Group Unknown Author Author [facility] Address Unknown Phone Unavailable Allergies Active Description Code Type Severity Reaction Onset Reported/Identified Relationship to Patient Clinical Status Yes No Known Drug Allergies [id number] Drug Allergy Unknown N/A 06/10/2018 Medications There is no data. Problems Date Dx Coded Attending Type Code Diagnosis Diagnosed By 06/21/1145 LAUREN HERRON MD Ot C20 MALIGNANT NEOPLASM OF RECTUM 06/21/1145 LAUREN HERRON MD, Ot I89.0 LYMPHEDEMA, NOT ELSEWHERE CLASSIFIED 06/21/1145 LAUREN HERRON MD Ot Z85.820 PERSONAL HISTORY OF MALIGNANT MELANOMA O 09/19/2012 154.1 MALIGNANT NEOPLASM OF RECTUM 09/19/2012 465.9 UPPER RESPIRATORY INFECTION 09/19/2012 530.81 GERD 09/19/2012 V10.82 PERSONAL HISTORY OF MALIGNANT MELANOMA OF SKIN 10/22/2012 Ot 457.1 OTHER LYMPHEDEMA 10/22/2012 Ot V10.06 HX-RECTAL ANAL MALIGN 10/22/2012 Ot V10.82 HX-MALIG SKIN MELANOMA 10/22/2012 Ot V12.61 PERSONAL HISTORY, PNEUMONIA (RECURRENT) 10/22/2012 Ot V58.69 OTH MED,LT, CURRENT USE 10/22/2012 Ot V67.1 RADIOTHERAPY FOLLOW-UP 10/22/2012 Ot V67.2 CHEMOTHERAPY FOLLOW-UP 11/06/2012 Ot 530.11 REFLUX ESOPHAGITIS 11/06/2012 Ot 535.50 UNSP GASTRITIS GASTRODUODENITIS W/O ME 11/06/2012 Ot 553.3 DIAPHRAGMATIC HERNIA 03/17/2013 LAUREN HERRON MD Ot 457.1 OTHER LYMPHEDEMA 03/17/2013 LAUREN HERRON MD Ot V10.06 HX-RECTAL ANAL MALIGN 03/17/2013 LAUREN HERRON MD Ot V10.82 HX-MALIG SKIN MELANOMA 03/17/2013 LAUREN HERRON MD Ot V12.61 PERSONAL HISTORY, PNEUMONIA (RECURRENT) 03/17/2013 LAUREN HERRON MD Ot V58.69 OTH MED,LT,CURRENT USE 03/17/2013 GOPAL HENRY, LAUREN Ot V58.81 FIT/ADJ VASCULAR CATHETER 03/17/2013 LAUREN HERRON MD Ot V67.1 RADIOTHERAPY FOLLOW-UP 03/17/2013 LAUREN HERRON MD Ot V67.2 CHEMOTHERAPY FOLLOW-UP 07/06/2013 LAUREN HERRON MD Ot 457.1 OTHER LYMPHEDEMA 07/06/2013 LAUREN HERRON MD Ot V10.06 HX-RECTAL ANAL MALIGN 07/06/2013 GOPAL HENRY, LAUREN Ot V10.82 HX-MALIG SKIN MELANOMA 07/06/2013 LAUREN HERRON MD Ot V12.61 PERSONAL HISTORY, PNEUMONIA (RECURRENT) 07/06/2013 LAUREN HERRON MD Ot V58.69 OTH MED,LT,CURRENT USE 07/06/2013 LAUREN HERRON MD Ot V58.81 FIT/ADJ VASCULAR CATHETER 07/06/2013 LAUREN HERRON MD Ot V67.1 RADIOTHERAPY FOLLOW-UP 07/06/2013 LAUREN HERRON MD Ot V67.2 CHEMOTHERAPY FOLLOW-UP 11/09/2013 LAUREN HERRON MD Ot 457.1 OTHER LYMPHEDEMA 11/09/2013 LAUREN HERRON MD Ot V10.06 HX-RECTAL ANAL MALIGN 11/09/2013 LAUREN HERRON MD Ot V10.82 HX-MALIG SKIN MELANOMA 11/09/2013 LAUREN HERRON MD Ot V12.61 PERSONAL HISTORY, PNEUMONIA (RECURRENT) 11/09/2013 LAUREN HERRON MD Ot V58.69 OTH MED,LT,CURRENT USE 11/09/2013 LAUREN HERRON MD Ot V67.1 RADIOTHERAPY FOLLOW-UP 11/09/2013 LAUREN HERRON MD Ot V67.2 CHEMOTHERAPY FOLLOW-UP 03/16/2014 LAUREN HERRON MD Ot 457.1 OTHER LYMPHEDEMA 03/16/2014 LAUREN HERRON MD Ot V10.06 HX-RECTAL ANAL MALIGN 03/16/2014 LAUREN HERRON MD Ot V10.82 HX-MALIG SKIN MELANOMA 03/16/2014 LAUREN HERRON MD Ot V12.61 PERSONAL HISTORY, PNEUMONIA (RECURRENT) 03/16/2014 LAUREN HERRON MD Ot V58.69 OTH MED,LT,CURRENT USE 03/16/2014 GOPAL HENRY, LAUREN Ot V58.81 FIT/ADJ VASCULAR CATHETER 03/16/2014 GOPAL HENRY, LAUREN Ot V67.1 RADIOTHERAPY FOLLOW-UP 03/16/2014 GOPAL HENRY, LAUREN Ot V67.2 CHEMOTHERAPY FOLLOW-UP 07/19/2014 GOPAL HENRY, LAUREN Ot V10.06 HX-RECTAL ANAL MALIGN 07/19/2014 GOPAL HENRY, TIGRE-TIMBO Ot V10.82 HX-MALIG SKIN MELANOMA 07/19/2014 GOPAL HENRY, LAUREN Ot V58.81 FIT/ADJ VASCULAR CATHETER 07/20/2014 GOPAL HENRY, LAUREN Ot 457.1 07/20/2014 GOPAL HENRY, TIGRE-TIMBO Ot V10.06 07/20/2014 GOPAL HENRY, TIGRE-TIMBO Ot V10.82 07/20/2014 GOPAL HENRY, LAUREN Ot V12.61 07/20/2014 GOPAL HENRY, LAUREN Ot V58.69 07/20/2014 GOPAL HENRY, LAUREN Ot V58.81 07/20/2014 GOPAL HENRY, LAUREN Ot V67.1 07/20/2014 GOPAL HENRY, TIGRE-TIMBO Ot V67.2 07/20/2014 GOPAL HENRY, LAUREN Ot 457.1 07/20/2014 GOPAL HENRY, LAUREN Ot V10.06 07/20/2014 GOPAL HENRY, LAUREN Ot V10.82 07/20/2014 GOPAL HENRY, LAUREN Ot V12.61 07/20/2014 GOPAL HENRY, LAUREN Ot V58.69 07/20/2014 GOPAL HENRY, TIGRE-TIMBO Ot V58.81 07/20/2014 GPOAL HENRY, TIGRE-TIMBO Ot V67.1 07/20/2014 GOPAL HENRY, TIGRE-TIMBO Ot V67.2 07/27/2014 GOPAL HENRY, LAUREN Ot 457.1 07/27/2014 GOPAL HENRY, TIGRE-TIMBO Ot V10.06 07/27/2014 GOPAL HENRY, LAUREN Ot V10.82 07/27/2014 GOPAL HENRY, LAUREN Ot V12.61 07/27/2014 GOPAL HENRY, TIGRE-TIMBO Ot V58.69 07/27/2014 GOPAL HENRY, LAUREN Ot V58.81 07/27/2014 GOPAL HENRY, LAUREN Ot V67.1 07/27/2014 GOPAL HENRY, LAUREN Ot V67.2 07/28/2014 GOPAL HENRY, LAUREN Ot 457.1 07/28/2014 GOPAL HENRY, LAUREN Ot V10.06 07/28/2014 GOPAL HENRY, LAUREN Ot V10.82 07/28/2014 GOPAL HENRY, LAUREN Ot V12.61 07/28/2014 GOPAL HENRY, LAUREN Ot V58.69 07/28/2014 GOPAL HENRY, LAUREN Ot V58.81 07/28/2014 GOPAL HENRY, LAUREN Ot V67.1 07/28/2014 GOPAL HENRY, LAUREN Ot V67.2 10/25/2014 GOPAL HENRY, LAUREN Ot 457.1 OTHER LYMPHEDEMA 10/25/2014 GOPAL HENRY, LAUREN Ot V10.06 HX-RECTAL ANAL MALIGN 10/25/2014 GOPAL HENRY, LAUREN Ot V10.82 HX-MALIG SKIN MELANOMA 10/25/2014 GOPAL HENRY, LAUREN Ot V12.61 PERSONAL HISTORY, PNEUMONIA (RECURRENT) 10/25/2014 GOPAL HENRY, LAUREN Ot V58.69 OTH MED,LT,CURRENT USE 10/25/2014 GOPAL HENRY, LAUREN Ot V58.81 FIT/ADJ VASCULAR CATHETER 10/25/2014 GOPAL HENRY, LAUREN Ot V67.1 RADIOTHERAPY FOLLOW-UP 10/25/2014 GOPAL HENRY, LAUREN Ot V67.2 CHEMOTHERAPY FOLLOW-UP 11/30/2014 GOPAL HENRY, LAUREN Ot 457.1 11/30/2014 GOPAL HENRY, LAUREN Ot V10.06 11/30/2014 GOPAL HENRY, LAUREN Ot V10.82 11/30/2014 GOPAL HENRY, LAUREN Ot V12.61 11/30/2014 GOPAL HENRY, LAUREN Ot V58.69 11/30/2014 GOPAL HENRY, LAUREN Ot V58.81 11/30/2014 GOPAL HENRY, LAUREN Ot V67.1 11/30/2014 GOPAL HENRY, LAUREN Ot V67.2 11/30/2014 GOPAL HENRY, LAUREN Ot 457.1 11/30/2014 GOPAL HENRY, LANDEROS-TIMBO Ot V10.06 11/30/2014 GOPAL HENRY, LANDEROS-TIMBO Ot V10.82 11/30/2014 GOPAL HENRY, LAUREN Ot V12.61 11/30/2014 GOPAL HENRY, LANDEROS-TIMBO Ot V58.69 11/30/2014 GOPAL HENRY, TIGRE-TIMBO Ot V58.81 11/30/2014 GOPAL HENRY, LANDEROS-TIMBO Ot V67.1 11/30/2014 GOPAL HENRY, LANDEROS-TIMBO Ot V67.2 11/30/2014 GOPAL HENRY, LAUREN Ot 457.1 11/30/2014 GOPAL HENRY, TIGRE-TIMBO Ot V10.06 11/30/2014 GOPAL HENRY, LAUREN Ot V10.82 11/30/2014 GOPAL HENRY, TIGRE-TIMBO Ot V12.61 11/30/2014 GOPAL HENRY, LAUREN Ot V58.69 11/30/2014 GOPAL HENRY, LAUREN Ot V58.81 11/30/2014 GOPAL HENRY, LAUREN Ot V67.1 11/30/2014 GOPAL HENRY, TIGRE-TIMBO Ot V67.2 12/01/2014 GOPAL HENRY, LAUREN Ot 457.1 12/01/2014 GOPAL HENRY, LAUREN Ot V10.06 12/01/2014 GOPAL HENRY, LAUREN Ot V10.82 12/01/2014 GOPAL HENRY, LAUREN Ot V12.61 12/01/2014 GOPAL HENRY, LAUREN Ot V58.69 12/01/2014 GOPAL HENRY, LAUREN Ot V58.81 12/01/2014 GOPAL HENRY, LAUREN Ot V67.1 12/01/2014 GOPAL HENRY, LAUREN Ot V67.2 01/04/2015 ERICA HENRY, SHILO Zapien Ot V10.06 HX-RECTAL ANAL MALIGN 01/04/2015 ERICA HENRY, SHILO Zapien Ot V10.82 HX-MALIG SKIN MELANOMA 01/04/2015 ERICA HENRY, SHILO Zapien Ot V58.69 OT MED,LT,CURRENT USE 01/04/2015 ERICA HENRY, SHILO Zapien Ot V67.09 SURGERY FOLLOW-UP, OTHER SURGERY 01/13/2015 GOPAL HENRY, LAUREN Adams 457.1 01/13/2015 GOPAL HENRY, TIGRE-TIMBO Ot V10.06 01/13/2015 GOPAL HENRY, LAUREN Ot V10.82 01/13/2015 GOPAL HENRY, LAUREN Ot V12.61 01/13/2015 GOPAL HENRY, LAUREN Ot V58.69 01/13/2015 GOPAL HENRY, LAUREN Ot V58.81 01/13/2015 GOPAL HENRY, LAUREN Ot V67.1 01/13/2015 GOPAL HENRY, LAUREN Ot V67.2 02/11/2015 GOPAL HENRY, LAUREN Ot 457.1 02/11/2015 GOPAL HENRY, LAUREN Ot V10.06 02/11/2015 GOPAL HENRY, LAUREN Ot V10.82 02/11/2015 GOPAL HENRY, LAUREN Ot V12.61 02/11/2015 GOPAL HENRY, LAUREN Ot V58.69 02/11/2015 GOPAL HENRY, LAUREN Ot V58.81 02/11/2015 GOPAL HENRY, LAUREN Ot V67.1 02/11/2015 GOPAL HENRY, LAUREN Ot V67.2 2015 GOPAL HENRY, LAUREN Ot 457.1 OTHER LYMPHEDEMA 2015 GOPAL HENRY, LAUREN Ot V10.06 HX-RECTAL ANAL MALIGN 2015 GOPAL HENRY, LAUREN Ot V10.82 HX-MALIG SKIN MELANOMA 2015 GOPAL HENRY, LAUREN Ot V12.61 PERSONAL HISTORY, PNEUMONIA (RECURRENT) 2015 GOPAL HENRY, LAUREN Ot V58.69 OTH MED,LT,CURRENT USE 2015 GOPAL HENRY, LAUREN Ot V58.81 FIT/ADJ VASCULAR CATHETER 2015 GOPAL HENRY, LAUREN Ot V67.1 RADIOTHERAPY FOLLOW-UP 2015 GOPAL HENRY, LAUREN Ot V67.2 CHEMOTHERAPY FOLLOW-UP 06/12/2015 GOPAL HENRY, LAUREN Ot 457.1 06/12/2015 GOPAL HENRY, LAUREN Ot V10.06 06/12/2015 GOPAL HENRY, LAUREN Ot V10.82 06/12/2015 GOPAL HENRY, LAUREN Ot V12.61 06/12/2015 GOPAL HENRY, LAUREN Ot V58.69 06/12/2015 GOPAL HENRY, LAUREN Ot V58.81 06/12/2015 GOPAL HENRY, TIGRE-TIMBO Ot V67.1 06/12/2015 GOPAL HENRY, LAUREN Ot V67.2 06/30/2015 GOPAL HENRY, LAUREN Ot I89.0 06/30/2015 GOPAL HENRY, LAUREN Ot Z08 06/30/2015 GOPAL HENRY, LAUREN Ot Z45.2 06/30/2015 GOPAL HENRY, LAUREN Ot Z79.899 06/30/2015 GOPAL HENRY, LAUREN Ot Z85.048 06/30/2015 GOPAL HENRY, LAUREN Ot Z85.820 06/30/2015 GOPAL HENRY, LAUREN Ot Z87.01 07/06/2015 GOPAL HENRY, LAUREN Ot I89.0 07/06/2015 GOPAL HENRY, LAUREN Ot Z08 07/06/2015 GOPAL HENRY, LAUREN Ot Z45.2 07/06/2015 GOPAL HENRY, LAUREN Ot Z79.899 07/06/2015 GOPAL HENRY, LAUREN Ot Z85.048 07/06/2015 GOPAL HENRY, LAUREN Ot Z85.820 07/06/2015 GOPAL HENRY, LAUREN Ot Z87.01 08/16/2015 GOPAL HENRY, LAUREN Ot I89.0 LYMPHEDEMA, NOT ELSEWHERE CLASSIFIED 08/16/2015 LAUREN HERRON MD, Ot Z08 ENCNTR FOR FOLLOW-UP EXAM AFTER TRTMT FO 08/16/2015 LAUREN HERRON MD, Ot Z45.2 ENCOUNTER FOR ADJUSTMENT AND MANAGEMENT 08/16/2015 GOPAL HENRY, LAUREN Ot Z79.899 OTHER NURSING HOME (CURRENT) DRUG THERAPY 08/16/2015 LAUREN HERRON MD, Ot Z85.048 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, RECT 08/16/2015 LAUREN HERRON MD Ot Z85.820 PERSONAL HISTORY OF MALIGNANT MELANOMA O 08/16/2015 LAUREN HERRON MD, Ot Z87.01 PERSONAL HISTORY OF PNEUMONIA (RECURRENT 10/27/2015 GOPAL HENRY, LAUREN Ot I89.0 10/27/2015 LAUREN HERRON MD Ot Z08 10/27/2015 LAUREN HERRON MD Ot Z45.2 10/27/2015 LAUREN HERRON MD Ot Z79.899 10/27/2015 LAUREN HERRON MD Ot Z85.048 10/27/2015 LAUREN HERRON MD Ot Z85.820 10/27/2015 LAUREN HERRON MD Ot Z87.01 11/12/2015 LAUREN HERRON MD Ot I89.0 LYMPHEDEMA, NOT ELSEWHERE CLASSIFIED 11/12/2015 LAUREN HERRON MD Ot Z08 ENCNTR FOR FOLLOW-UP EXAM AFTER TRTMT FO 11/12/2015 LAUREN HERRON MD, Ot Z45.2 ENCOUNTER FOR ADJUSTMENT AND MANAGEMENT 11/12/2015 LAUREN HERRON MD Ot Z79.899 OTHER NURSING HOME (CURRENT) DRUG THERAPY 11/12/2015 LAUREN HERRON MD Ot Z85.048 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, RECT 11/12/2015 LAUREN HERRON MD Ot Z85.820 PERSONAL HISTORY OF MALIGNANT MELANOMA O 11/12/2015 LAUREN HERRON MD Ot Z87.01 PERSONAL HISTORY OF PNEUMONIA (RECURRENT 11/25/2015 LAUREN HERRON MD Ot I89.0 LYMPHEDEMA, NOT ELSEWHERE CLASSIFIED 11/25/2015 LAUREN HERRON MD Ot Z08 ENCNTR FOR FOLLOW-UP EXAM AFTER TRTMT FO 11/25/2015 LAUREN HERRON MD, Ot Z45.2 ENCOUNTER FOR ADJUSTMENT AND MANAGEMENT 11/25/2015 LAUREN HERRON MD Ot Z79.899 OTHER NURSING HOME (CURRENT) DRUG THERAPY 11/25/2015 LAUREN HERRON MD Ot Z85.048 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, RECT 11/25/2015 LAUREN HERRON MD Ot Z85.820 PERSONAL HISTORY OF MALIGNANT MELANOMA O 11/25/2015 LAUREN HERRON MD Ot Z87.01 PERSONAL HISTORY OF PNEUMONIA (RECURRENT 12/20/2015 LAUREN HERRON MD Ot I89.0 LYMPHEDEMA, NOT ELSEWHERE CLASSIFIED 12/20/2015 LAUREN HERRON MD Ot Z08 ENCNTR FOR FOLLOW-UP EXAM AFTER TRTMT FO 12/20/2015 LAUREN HERRON MD Ot Z45.2 ENCOUNTER FOR ADJUSTMENT AND MANAGEMENT 12/20/2015 LAUREN HERRON MD Ot Z79.899 OTHER PILING SETTER (CURRENT) DRUG THERAPY 12/20/2015 LAUREN HERRON MD Ot Z85.048 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, RECT 12/20/2015 LAUREN HERRON MD Ot Z85.820 PERSONAL HISTORY OF MALIGNANT MELANOMA O 12/20/2015 LAUREN HERRON MD Ot Z87.01 PERSONAL HISTORY OF PNEUMONIA (RECURRENT 12/31/2015 LAUREN HERRON MD Ot I89.0 LYMPHEDEMA, NOT ELSEWHERE CLASSIFIED 12/31/2015 LAUREN HERRON MD, Ot Z08 ENCNTR FOR FOLLOW-UP EXAM AFTER TRTMT FO 12/31/2015 LAUREN HERRON MD, Ot Z45.2 ENCOUNTER FOR ADJUSTMENT AND MANAGEMENT 12/31/2015 LAUREN HERRON MD Ot Z79.899 OTHER NURSING HOME (CURRENT) DRUG THERAPY 12/31/2015 LAUREN HERRON MD Ot Z85.048 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, RECT 12/31/2015 LAUREN HERRON MD Ot Z85.820 PERSONAL HISTORY OF MALIGNANT MELANOMA O 12/31/2015 LAUREN HERRON MD Ot Z87.01 PERSONAL HISTORY OF PNEUMONIA (RECURRENT 03/03/2016 LAUREN HERRON MD Ot I89.0 LYMPHEDEMA, NOT ELSEWHERE CLASSIFIED 03/03/2016 LAUREN HERRON MD Ot Z08 ENCNTR FOR FOLLOW-UP EXAM AFTER TRTMT FO 03/03/2016 LAUREN HERRON MD Ot Z45.2 ENCOUNTER FOR ADJUSTMENT AND MANAGEMENT 03/03/2016 LAUREN HERRON MD Ot Z79.899 OTHER PILING SETTER (CURRENT) DRUG THERAPY 03/03/2016 LAUREN HERRON MD Ot Z85.048 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, RECT 03/03/2016 LAUREN HERRON MD Ot Z85.820 PERSONAL HISTORY OF MALIGNANT MELANOMA O 03/03/2016 LAUREN HERRON MD Ot Z87.01 PERSONAL HISTORY OF PNEUMONIA (RECURRENT 03/23/2016 LAUREN HERRON MD Ot I89.0 LYMPHEDEMA, NOT ELSEWHERE CLASSIFIED 03/23/2016 LAUREN HERRON MD Ot Z08 ENCNTR FOR FOLLOW-UP EXAM AFTER TRTMT FO 03/23/2016 LAUREN HERRON MD Ot Z45.2 ENCOUNTER FOR ADJUSTMENT AND MANAGEMENT 03/23/2016 LAUREN HERRON MD Ot Z79.899 OTHER NURSING HOME (CURRENT) DRUG THERAPY 03/23/2016 LAUREN HERRON MD Ot Z85.048 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, RECT 03/23/2016 LAUREN HERRON MD Ot Z85.820 PERSONAL HISTORY OF MALIGNANT MELANOMA O 03/23/2016 LAUREN HERRON MD Ot Z87.01 PERSONAL HISTORY OF PNEUMONIA (RECURRENT 04/03/2016 LAUREN HERRON MD Ot I89.0 LYMPHEDEMA, NOT ELSEWHERE CLASSIFIED 04/03/2016 LAUREN HERRON MD Ot Z08 ENCNTR FOR FOLLOW-UP EXAM AFTER TRTMT FO 04/03/2016 LAUREN HERRON MD Ot Z45.2 ENCOUNTER FOR ADJUSTMENT AND MANAGEMENT 04/03/2016 LAUREN HERRON MD Ot Z79.899 OTHER PILING SETTER (CURRENT) DRUG THERAPY 04/03/2016 LAUERN HERRON MD Ot Z85.048 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, RECT 04/03/2016 LAUREN HERRON MD Ot Z85.820 PERSONAL HISTORY OF MALIGNANT MELANOMA O 04/03/2016 LAUREN HERRON MD Ot Z87.01 PERSONAL HISTORY OF PNEUMONIA (RECURRENT 04/10/2016 LAUREN HERRON MD Ot I89.0 LYMPHEDEMA, NOT ELSEWHERE CLASSIFIED 04/10/2016 LAUREN HERRON MD Ot Z08 ENCNTR FOR FOLLOW-UP EXAM AFTER TRTMT FO 04/10/2016 LAUREN HERRON MD Ot Z45.2 ENCOUNTER FOR ADJUSTMENT AND MANAGEMENT 04/10/2016 LAUREN HERRON MD Ot Z79.899 OTHER NURSING HOME (CURRENT) DRUG THERAPY 04/10/2016 LAUREN HERRON MD Ot Z85.048 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, RECT 04/10/2016 LAUREN HERRON MD Ot Z85.820 PERSONAL HISTORY OF MALIGNANT MELANOMA O 04/10/2016 LAUREN HERRON MD, Ot Z87.01 PERSONAL HISTORY OF PNEUMONIA (RECURRENT 05/29/2016 LAUREN HERRON MD, Ot I89.0 LYMPHEDEMA, NOT ELSEWHERE CLASSIFIED 05/29/2016 LAUREN HERRON MD, Ot Z08 ENCNTR FOR FOLLOW-UP EXAM AFTER TRTMT FO 05/29/2016 LAUREN HERRON MD, Ot Z45.2 ENCOUNTER FOR ADJUSTMENT AND MANAGEMENT 05/29/2016 LAUREN HERRON MD, Ot Z79.899 OTHER PILING SETTER (CURRENT) DRUG THERAPY 05/29/2016 LAUREN HERRON MD, Ot Z85.048 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, RECT 05/29/2016 LAUREN HERRON MD, Ot Z85.820 PERSONAL HISTORY OF MALIGNANT MELANOMA O 05/29/2016 LAUREN HERRON MD, Ot Z87.01 PERSONAL HISTORY OF PNEUMONIA (RECURRENT 06/06/2016 LAUREN HERRON MD, Ot M79.604 PAIN IN RIGHT LEG 06/07/2016 LAUREN HERRON MD, Ot M79.604 PAIN IN RIGHT LEG 06/07/2016 LAUREN HERRON MD, Ot C20 MALIGNANT NEOPLASM OF RECTUM 06/07/2016 LAUREN HERRON MD, Ot I89.0 LYMPHEDEMA, NOT ELSEWHERE CLASSIFIED 06/07/2016 LAUREN HERRON MD, Ot M79.604 PAIN IN RIGHT LEG 06/07/2016 LAUREN HERRON MD, Ot Z85.820 PERSONAL HISTORY OF MALIGNANT MELANOMA O 06/13/2016 LAUREN HERRON MD, Ot C20 MALIGNANT NEOPLASM OF RECTUM 06/13/2016 LAUREN HERRON MD, Ot I89.0 LYMPHEDEMA, NOT ELSEWHERE CLASSIFIED 06/13/2016 LAUREN HERRON MD, Ot Z85.820 PERSONAL HISTORY OF MALIGNANT MELANOMA O 06/14/2016 LAUREN HERRON MD Ot I89.0 LYMPHEDEMA, NOT ELSEWHERE CLASSIFIED 06/14/2016 LAUREN HERRON MD, Ot Z08 ENCNTR FOR FOLLOW-UP EXAM AFTER TRTMT FO 06/14/2016 LAUREN HERRON MD, Ot Z45.2 ENCOUNTER FOR ADJUSTMENT AND MANAGEMENT 06/14/2016 LAUREN HERRON MD, Ot Z79.899 OTHER PILING SETTER (CURRENT) DRUG THERAPY 06/14/2016 XUN MD, LANDEROS-TIMBO Ot Z85.048 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, RECT 06/14/2016 LAUREN HERRON MD, Ot Z85.820 PERSONAL HISTORY OF MALIGNANT MELANOMA O 06/14/2016 LAUREN HERRON MD, Ot Z87.01 PERSONAL HISTORY OF PNEUMONIA (RECURRENT 06/27/2016 LAUREN HERRON MD, Ot C20 MALIGNANT NEOPLASM OF RECTUM 06/27/2016 LAUREN HERRON MD Ot I89.0 LYMPHEDEMA, NOT ELSEWHERE CLASSIFIED 06/27/2016 LAUREN HERRON MD, Ot Z85.820 PERSONAL HISTORY OF MALIGNANT MELANOMA O 06/27/2016 LAUREN HERRON MD, Ot C20 MALIGNANT NEOPLASM OF RECTUM 06/27/2016 LAUREN HERRON MD, Ot I89.0 LYMPHEDEMA, NOT ELSEWHERE CLASSIFIED 06/27/2016 LAUREN HERRON MD, Ot M79.604 PAIN IN RIGHT LEG 06/27/2016 LAUREN HERRON MD, Ot Z85.820 PERSONAL HISTORY OF MALIGNANT MELANOMA O 06/28/2016 LAUREN HERRON MD, Ot C20 MALIGNANT NEOPLASM OF RECTUM 06/28/2016 LAUREN HERRON MD, Ot I89.0 LYMPHEDEMA, NOT ELSEWHERE CLASSIFIED 06/28/2016 LAUREN HERRON MD, Ot Z85.820 PERSONAL HISTORY OF MALIGNANT MELANOMA O 06/28/2016 LAUREN HERRON MD, Ot I89.0 LYMPHEDEMA, NOT ELSEWHERE CLASSIFIED 06/28/2016 LAUREN HERRON MD, Ot Z08 ENCNTR FOR FOLLOW-UP EXAM AFTER TRTMT FO 06/28/2016 LAUREN HERRON MD, Ot Z45.2 ENCOUNTER FOR ADJUSTMENT AND MANAGEMENT 06/28/2016 LAUREN HERRON MD Ot Z79.899 OTHER NURSING HOME (CURRENT) DRUG THERAPY 06/28/2016 LAUREN HERRON MD, Ot Z85.048 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, RECT 06/28/2016 LAUREN HERRON MD, Ot Z85.820 PERSONAL HISTORY OF MALIGNANT MELANOMA O 06/28/2016 LAUREN HERRON MD, Ot Z87.01 PERSONAL HISTORY OF PNEUMONIA (RECURRENT 07/05/2016 LAUREN HERRON MD, Ot C20 MALIGNANT NEOPLASM OF RECTUM 07/05/2016 LAUREN HERRON MD, Ot I89.0 LYMPHEDEMA, NOT ELSEWHERE CLASSIFIED 07/05/2016 LAUREN HERRON MD, Ot M79.604 PAIN IN RIGHT LEG 07/05/2016 LAUREN HERRON MD Ot Z85.820 PERSONAL HISTORY OF MALIGNANT MELANOMA O 08/14/2016 LAUREN HERRON MD Ot I89.0 LYMPHEDEMA, NOT ELSEWHERE CLASSIFIED 08/14/2016 LAUREN HERRON MD, Ot Z08 ENCNTR FOR FOLLOW-UP EXAM AFTER TRTMT FO 08/14/2016 LAUREN HERRON MD, Ot Z45.2 ENCOUNTER FOR ADJUSTMENT AND MANAGEMENT 08/14/2016 LAUREN HERRON MD Ot Z79.899 OTHER NURSING HOME (CURRENT) DRUG THERAPY 08/14/2016 LAUREN HERRON MD Ot Z85.048 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, RECT 08/14/2016 LAUREN HERRON MD Ot Z85.820 PERSONAL HISTORY OF MALIGNANT MELANOMA O 08/14/2016 LAUREN HERRON MD Ot Z87.01 PERSONAL HISTORY OF PNEUMONIA (RECURRENT 09/25/2016 LAUREN HERRON MD Ot I89.0 LYMPHEDEMA, NOT ELSEWHERE CLASSIFIED 09/25/2016 LAUREN HERRON MD, Ot Z08 ENCNTR FOR FOLLOW-UP EXAM AFTER TRTMT FO 09/25/2016 LAUREN HERRON MD, Ot Z45.2 ENCOUNTER FOR ADJUSTMENT AND MANAGEMENT 09/25/2016 LAUREN HERRON MD Ot Z79.899 OTHER PILING SETTER (CURRENT) DRUG THERAPY 09/25/2016 LAUREN HERRON MD, Ot Z85.048 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, RECT 09/25/2016 LAUREN HERRON MD Ot Z85.820 PERSONAL HISTORY OF MALIGNANT MELANOMA O 09/25/2016 LAUREN HERRON MD Ot Z87.01 PERSONAL HISTORY OF PNEUMONIA (RECURRENT 10/12/2016 LAUREN HERRON MD Ot I89.0 LYMPHEDEMA, NOT ELSEWHERE CLASSIFIED 10/12/2016 LAUREN HERRON MD Ot Z08 ENCNTR FOR FOLLOW-UP EXAM AFTER TRTMT FO 10/12/2016 LAUREN HERRON MD Ot Z45.2 ENCOUNTER FOR ADJUSTMENT AND MANAGEMENT 10/12/2016 LAUREN HERRON MD Ot Z79.899 OTHER PILING SETTER (CURRENT) DRUG THERAPY 10/12/2016 LAUREN HERRON MD Ot Z85.048 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, RECT 10/12/2016 LAUREN HERRON MD Ot Z85.820 PERSONAL HISTORY OF MALIGNANT MELANOMA O 10/12/2016 LAUREN HERRON MD Ot Z87.01 PERSONAL HISTORY OF PNEUMONIA (RECURRENT 10/20/2016 LAUREN HERRON MD Ot I89.0 LYMPHEDEMA, NOT ELSEWHERE CLASSIFIED 10/20/2016 LAUREN HERRON MD Ot Z08 ENCNTR FOR FOLLOW-UP EXAM AFTER TRTMT FO 10/20/2016 LAUREN HERRON MD, Ot Z45.2 ENCOUNTER FOR ADJUSTMENT AND MANAGEMENT 10/20/2016 LAUREN HERRON MD Ot Z79.899 OTHER NURSING HOME (CURRENT) DRUG THERAPY 10/20/2016 LAUREN HERRON MD Ot Z85.048 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, RECT 10/20/2016 LAUREN HERRON MD Ot Z85.820 PERSONAL HISTORY OF MALIGNANT MELANOMA O 10/20/2016 LAUREN HERRON MD, Ot Z87.01 PERSONAL HISTORY OF PNEUMONIA (RECURRENT 11/20/2016 Ot 786.2 COUGH 12/18/2016 LAUREN HERRON MD Ot I89.0 LYMPHEDEMA, NOT ELSEWHERE CLASSIFIED 12/18/2016 LAUREN HERRON MD Ot Z08 ENCNTR FOR FOLLOW-UP EXAM AFTER TRTMT FO 12/18/2016 LAUREN HERRON MD, Ot Z45.2 ENCOUNTER FOR ADJUSTMENT AND MANAGEMENT 12/18/2016 LAUREN HERRON MD Ot Z79.899 OTHER PILING SETTER (CURRENT) DRUG THERAPY 12/18/2016 LAUREN HERRON MD Ot Z85.048 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, RECT 12/18/2016 LAUREN HERRON MD Ot Z85.820 PERSONAL HISTORY OF MALIGNANT MELANOMA O 12/18/2016 LAUREN HERRON MD Ot Z87.01 PERSONAL HISTORY OF PNEUMONIA (RECURRENT 01/19/2017 LAUREN HERRON MD Ot I89.0 LYMPHEDEMA, NOT ELSEWHERE CLASSIFIED 01/19/2017 LAUREN HERRON MD Ot Z08 ENCNTR FOR FOLLOW-UP EXAM AFTER TRTMT FO 01/19/2017 LAUREN HERRON MD Ot Z45.2 ENCOUNTER FOR ADJUSTMENT AND MANAGEMENT 01/19/2017 LAUREN HERRON MD Ot Z79.899 OTHER NURSING HOME (CURRENT) DRUG THERAPY 01/19/2017 LAUREN HERRON MD Ot Z85.048 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, RECT 01/19/2017 LAUREN HERRON MD Ot Z85.820 PERSONAL HISTORY OF MALIGNANT MELANOMA O 01/19/2017 LAUREN HERRON MD Ot Z87.01 PERSONAL HISTORY OF PNEUMONIA (RECURRENT 01/26/2017 LAUREN HERRON MD Ot I89.0 LYMPHEDEMA, NOT ELSEWHERE CLASSIFIED 01/26/2017 LAUREN HERRON MD Ot Z08 ENCNTR FOR FOLLOW-UP EXAM AFTER TRTMT FO 01/26/2017 LAUREN HERRON MD, Ot Z79.899 OTHER NURSING HOME (CURRENT) DRUG THERAPY 01/26/2017 LAUREN HERRON MD Ot Z85.048 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, RECT 01/26/2017 LAUREN HERRON MD Ot Z85.820 PERSONAL HISTORY OF MALIGNANT MELANOMA O 01/26/2017 LAUREN HERRON MD Ot Z87.01 PERSONAL HISTORY OF PNEUMONIA (RECURRENT 02/16/2017 LAUREN HERRON MD Ot I89.0 LYMPHEDEMA, NOT ELSEWHERE CLASSIFIED 02/16/2017 LAUREN HERRON MD Ot Z08 ENCNTR FOR FOLLOW-UP EXAM AFTER TRTMT FO 02/16/2017 LAUREN HERRON MD Ot Z79.899 OTHER NURSING HOME (CURRENT) DRUG THERAPY 02/16/2017 LAUREN HERRON MD Ot Z85.048 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, RECT 02/16/2017 LAUREN HERRON MD Ot Z85.820 PERSONAL HISTORY OF MALIGNANT MELANOMA O 02/16/2017 LAUREN HERRON MD Ot Z87.01 PERSONAL HISTORY OF PNEUMONIA (RECURRENT 03/01/2017 LAUREN HERRON MD Ot I89.0 LYMPHEDEMA, NOT ELSEWHERE CLASSIFIED 03/01/2017 LAUREN HERRON MD Ot Z08 ENCNTR FOR FOLLOW-UP EXAM AFTER TRTMT FO 03/01/2017 LAUREN HERRON MD Ot Z79.899 OTHER PILING SETTER (CURRENT) DRUG THERAPY 03/01/2017 LAUREN HERRON MD Ot Z85.048 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, RECT 03/01/2017 LAUREN HERRON MD Ot Z85.820 PERSONAL HISTORY OF MALIGNANT MELANOMA O 03/01/2017 LAUREN HERRON MD Ot Z87.01 PERSONAL HISTORY OF PNEUMONIA (RECURRENT 04/17/2017 LAUREN HERRON MD Ot I89.0 LYMPHEDEMA, NOT ELSEWHERE CLASSIFIED 04/17/2017 LAUREN HERRON MD, Ot Z08 ENCNTR FOR FOLLOW-UP EXAM AFTER TRTMT FO 04/17/2017 LAUREN HERRON MD, Ot Z45.2 ENCOUNTER FOR ADJUSTMENT AND MANAGEMENT 04/17/2017 LAUREN HERRON MD Ot Z79.899 OTHER PILING SETTER (CURRENT) DRUG THERAPY 04/17/2017 LAUREN HERRON MD Ot Z85.048 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, RECT 04/17/2017 LAUREN HERRON MD Ot Z85.820 PERSONAL HISTORY OF MALIGNANT MELANOMA O 04/17/2017 LAUREN HERRON MD, Ot Z87.01 PERSONAL HISTORY OF PNEUMONIA (RECURRENT 05/23/2017 LAUREN HERRON MD Ot I89.0 LYMPHEDEMA, NOT ELSEWHERE CLASSIFIED 05/23/2017 LAUREN HERRON MD, Ot Z08 ENCNTR FOR FOLLOW-UP EXAM AFTER TRTMT FO 05/23/2017 LAUREN HERRON MD, Ot Z45.2 ENCOUNTER FOR ADJUSTMENT AND MANAGEMENT 05/23/2017 LAUREN HERRON MD, Ot Z79.899 OTHER PILING SETTER (CURRENT) DRUG THERAPY 05/23/2017 LAUREN HERRON MD Ot Z85.048 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, RECT 05/23/2017 LAUREN HERRON MD Ot Z85.820 PERSONAL HISTORY OF MALIGNANT MELANOMA O 05/23/2017 LAUREN HERRON MD Ot Z87.01 PERSONAL HISTORY OF PNEUMONIA (RECURRENT 06/15/2017 LAUREN HERRON MD Ot I89.0 LYMPHEDEMA, NOT ELSEWHERE CLASSIFIED 06/15/2017 LAUREN HERRON MD Ot Z08 ENCNTR FOR FOLLOW-UP EXAM AFTER TRTMT FO 06/15/2017 LAUREN HERRON MD, Ot Z45.2 ENCOUNTER FOR ADJUSTMENT AND MANAGEMENT 06/15/2017 LAUREN HERRON MD Ot Z79.899 OTHER PILING SETTER (CURRENT) DRUG THERAPY 06/15/2017 LAUREN HERRON MD Ot Z85.048 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, RECT 06/15/2017 LAUREN HERRON MD Ot Z85.820 PERSONAL HISTORY OF MALIGNANT MELANOMA O 06/15/2017 LAUREN HERRON MD Ot Z87.01 PERSONAL HISTORY OF PNEUMONIA (RECURRENT 06/26/2017 LAUREN HERRON MD Ot I89.0 LYMPHEDEMA, NOT ELSEWHERE CLASSIFIED 06/26/2017 LAUREN HERRON MD Ot Z08 ENCNTR FOR FOLLOW-UP EXAM AFTER TRTMT FO 06/26/2017 LAUREN HERRON MD Ot Z45.2 ENCOUNTER FOR ADJUSTMENT AND MANAGEMENT 06/26/2017 LAUREN HERRON MD Ot Z79.899 OTHER PILING SETTER (CURRENT) DRUG THERAPY 06/26/2017 LAUREN HERRON MD Ot Z85.048 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, RECT 06/26/2017 LAUREN HERRON MD Ot Z85.820 PERSONAL HISTORY OF MALIGNANT MELANOMA O 06/26/2017 LAUREN HERRON MD Ot Z87.01 PERSONAL HISTORY OF PNEUMONIA (RECURRENT 08/20/2017 LAUREN HERRON MD Ot I89.0 LYMPHEDEMA, NOT ELSEWHERE CLASSIFIED 08/20/2017 LAUREN HERRON MD Ot Z08 ENCNTR FOR FOLLOW-UP EXAM AFTER TRTMT FO 08/20/2017 LAUREN HERRON MD Ot Z45.2 ENCOUNTER FOR ADJUSTMENT AND MANAGEMENT 08/20/2017 LAUREN HERRON MD Ot Z79.899 OTHER PILING SETTER (CURRENT) DRUG THERAPY 08/20/2017 LAUREN HERRON MD Ot Z85.048 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, RECT 08/20/2017 LAUREN HERRON MD Ot Z85.820 PERSONAL HISTORY OF MALIGNANT MELANOMA O 08/20/2017 LAUREN HERRON MD Ot Z87.01 PERSONAL HISTORY OF PNEUMONIA (RECURRENT 11/01/2017 LAUREN HERRON MD Ot I89.0 LYMPHEDEMA, NOT ELSEWHERE CLASSIFIED 11/01/2017 LAUREN HERRON MD Ot Z08 ENCNTR FOR FOLLOW-UP EXAM AFTER TRTMT FO 11/01/2017 LAUREN HERRON MD Ot Z45.2 ENCOUNTER FOR ADJUSTMENT AND MANAGEMENT 11/01/2017 LAUREN HERRON MD Ot Z79.899 OTHER PILING SETTER (CURRENT) DRUG THERAPY 11/01/2017 LAUREN HERRON MD Ot Z85.048 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, RECT 11/01/2017 LAUREN HERRON MD Ot Z85.820 PERSONAL HISTORY OF MALIGNANT MELANOMA O 11/01/2017 LAUREN HERRON MD Ot Z87.01 PERSONAL HISTORY OF PNEUMONIA (RECURRENT 11/19/2017 LAUREN HERRON MD Ot I89.0 LYMPHEDEMA, NOT ELSEWHERE CLASSIFIED 11/19/2017 LAUREN HERRON MD Ot Z08 ENCNTR FOR FOLLOW-UP EXAM AFTER TRTMT FO 11/19/2017 LAUREN HERRON MD, Ot Z45.2 ENCOUNTER FOR ADJUSTMENT AND MANAGEMENT 11/19/2017 LAUREN HERRON MD Ot Z79.899 OTHER PILING SETTER (CURRENT) DRUG THERAPY 11/19/2017 LAUREN HERRON MD Ot Z85.048 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, RECT 11/19/2017 LAUREN HERRON MD Ot Z85.820 PERSONAL HISTORY OF MALIGNANT MELANOMA O 11/19/2017 LAUREN HERRON MD Ot Z87.01 PERSONAL HISTORY OF PNEUMONIA (RECURRENT 11/26/2017 LAUREN HERRON MD Ot I89.0 LYMPHEDEMA, NOT ELSEWHERE CLASSIFIED 11/26/2017 LAUREN HERRON MD Ot Z08 ENCNTR FOR FOLLOW-UP EXAM AFTER TRTMT FO 11/26/2017 LAUREN HERRON MD Ot Z45.2 ENCOUNTER FOR ADJUSTMENT AND MANAGEMENT 11/26/2017 LAUREN HERRON MD Ot Z79.899 OTHER NURSING HOME (CURRENT) DRUG THERAPY 11/26/2017 LAUREN HERRON MD Ot Z85.048 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, RECT 11/26/2017 LAUREN HERRON MD Ot Z85.820 PERSONAL HISTORY OF MALIGNANT MELANOMA O 11/26/2017 LAUREN HERRON MD Ot Z87.01 PERSONAL HISTORY OF PNEUMONIA (RECURRENT 12/31/2017 LAUREN HERRON MD Ot I89.0 LYMPHEDEMA, NOT ELSEWHERE CLASSIFIED 12/31/2017 LAUREN HERRON MD, Ot Z08 ENCNTR FOR FOLLOW-UP EXAM AFTER TRTMT FO 12/31/2017 LAUREN HERRON MD, Ot Z45.2 ENCOUNTER FOR ADJUSTMENT AND MANAGEMENT 12/31/2017 LAUREN HERRON MD, Ot Z79.899 OTHER NURSING HOME (CURRENT) DRUG THERAPY 12/31/2017 LAUREN HERRON MD Ot Z85.048 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, RECT 12/31/2017 LAUREN HERRON MD, Ot Z85.820 PERSONAL HISTORY OF MALIGNANT MELANOMA O 12/31/2017 LAUREN HERRON MD, Ot Z87.01 PERSONAL HISTORY OF PNEUMONIA (RECURRENT 01/01/2018 LAUREN HERRON MD, Ot I89.0 LYMPHEDEMA, NOT ELSEWHERE CLASSIFIED 01/01/2018 LAUREN HERRON MD, Ot Z08 ENCNTR FOR FOLLOW-UP EXAM AFTER TRTMT FO 01/01/2018 LAUREN HERRON MD, Ot Z45.2 ENCOUNTER FOR ADJUSTMENT AND MANAGEMENT 01/01/2018 LAUREN HERRON MD Ot Z79.899 OTHER NURSING HOME (CURRENT) DRUG THERAPY 01/01/2018 LAUREN HERRON MD Ot Z85.048 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, RECT 01/01/2018 LAUREN HERRON MD, Ot Z85.820 PERSONAL HISTORY OF MALIGNANT MELANOMA O 01/01/2018 LAUREN HERRON MD, Ot Z87.01 PERSONAL HISTORY OF PNEUMONIA (RECURRENT 02/05/2018 Ot V10.06 HX-RECTAL ANAL MALIGN 02/05/2018 Ot V10.82 HX-MALIG SKIN MELANOMA 02/05/2018 Ot V72.84 EXAM PRE- OPERATIVE NOS 02/05/2018 ERICA HENRY, SHILO Zapien Ot V72.84 EXAM PRE-OPERATIVE NOS 02/05/2018 LAUREN HERRNO MD Ot C20 MALIGNANT NEOPLASM OF RECTUM 02/05/2018 LAUREN HERRON MD Ot I89.0 LYMPHEDEMA, NOT ELSEWHERE CLASSIFIED 02/05/2018 LAUREN HERRON MD, Ot M79.604 PAIN IN RIGHT LEG 02/05/2018 LAUREN HERRON MD, Ot Z85.820 PERSONAL HISTORY OF MALIGNANT MELANOMA O 02/05/2018 XUN MD, LANDEROS-TIMBO Ot I89.0 LYMPHEDEMA, NOT ELSEWHERE CLASSIFIED 02/05/2018 LAUREN HERRON MD, Ot Z08 ENCNTR FOR FOLLOW-UP EXAM AFTER TRTMT FO 02/05/2018 LAUREN HERRON MD, Ot Z45.2 ENCOUNTER FOR ADJUSTMENT AND MANAGEMENT 02/05/2018 LAUREN HERRON MD Ot Z79.899 OTHER PILING SETTER (CURRENT) DRUG THERAPY 02/05/2018 LAUREN HERRON MD Ot Z85.048 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, RECT 02/05/2018 LAUREN HERRON MD, Ot Z85.820 PERSONAL HISTORY OF MALIGNANT MELANOMA O 02/05/2018 LAUREN HERRON MD Ot Z87.01 PERSONAL HISTORY OF PNEUMONIA (RECURRENT 03/19/2018 LAUREN HERRON MD, Ot I89.0 LYMPHEDEMA, NOT ELSEWHERE CLASSIFIED 03/19/2018 LAUREN HERRON MD, Ot Z08 ENCNTR FOR FOLLOW-UP EXAM AFTER TRTMT FO 03/19/2018 LAUREN HERRON MD, Ot Z45.2 ENCOUNTER FOR ADJUSTMENT AND MANAGEMENT 03/19/2018 LAUREN HERRON MD Ot Z79.899 OTHER PILING SETTER (CURRENT) DRUG THERAPY 03/19/2018 LAUREN HERRON MD Ot Z85.048 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, RECT 03/19/2018 LAUREN HERRON MD Ot Z85.820 PERSONAL HISTORY OF MALIGNANT MELANOMA O 03/19/2018 LAUREN HERRON MD Ot Z87.01 PERSONAL HISTORY OF PNEUMONIA (RECURRENT 03/19/2018 Ot V72.84 EXAM PRE- OPERATIVE NOS 03/19/2018 SHILO MALDONADO MD Ot V72.84 EXAM PRE-OPERATIVE NOS 03/19/2018 LAUREN HERRON MD Ot C20 MALIGNANT NEOPLASM OF RECTUM 03/19/2018 LAUREN HERRON MD Ot I89.0 LYMPHEDEMA, NOT ELSEWHERE CLASSIFIED 03/19/2018 LAUREN HERRON MD, Ot M79.604 PAIN IN RIGHT LEG 03/19/2018 LAUREN HERRON MD Ot Z85.820 PERSONAL HISTORY OF MALIGNANT MELANOMA O 03/19/2018 LAUREN HERRON MD Ot I89.0 LYMPHEDEMA, NOT ELSEWHERE CLASSIFIED 03/19/2018 XUN MD, LANDEROS-TIMBO Ot Z08 ENCNTR FOR FOLLOW-UP EXAM AFTER TRTMT FO 03/19/2018 LAUREN HERRON MD Ot Z45.2 ENCOUNTER FOR ADJUSTMENT AND MANAGEMENT 03/19/2018 LAUREN HERRON MD Ot Z79.899 OTHER NURSING HOME (CURRENT) DRUG THERAPY 03/19/2018 LAUREN HERRON MD Ot Z85.048 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, RECT 03/19/2018 LAUREN HERRON MD Ot Z85.820 PERSONAL HISTORY OF MALIGNANT MELANOMA O 03/19/2018 LAUREN HERRON MD Ot Z87.01 PERSONAL HISTORY OF PNEUMONIA (RECURRENT 03/22/2018 LAUREN HERRON MD Ot I89.0 LYMPHEDEMA, NOT ELSEWHERE CLASSIFIED 03/22/2018 LAUREN HERRON MD Ot Z08 ENCNTR FOR FOLLOW-UP EXAM AFTER TRTMT FO 03/22/2018 LAUREN HERRON MD Ot Z45.2 ENCOUNTER FOR ADJUSTMENT AND MANAGEMENT 03/22/2018 LAUREN HERRON MD Ot Z79.899 OTHER NURSING HOME (CURRENT) DRUG THERAPY 03/22/2018 LAUREN HERRON MD Ot Z85.048 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, RECT 03/22/2018 LAUREN HERRON MD Ot Z85.820 PERSONAL HISTORY OF MALIGNANT MELANOMA O 03/22/2018 LAUREN HERRON MD Ot Z87.01 PERSONAL HISTORY OF PNEUMONIA (RECURRENT 04/16/2018 LAUREN HERRON MD Ot I89.0 LYMPHEDEMA, NOT ELSEWHERE CLASSIFIED 04/16/2018 LAUREN HERRON MD Ot Z08 ENCNTR FOR FOLLOW-UP EXAM AFTER TRTMT FO 04/16/2018 LAUREN HERRON MD Ot Z45.2 ENCOUNTER FOR ADJUSTMENT AND MANAGEMENT 04/16/2018 LAUREN HERRON MD Ot Z79.899 OTHER PILING SETTER (CURRENT) DRUG THERAPY 04/16/2018 LAUREN HERRON MD Ot Z85.048 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, RECT 04/16/2018 LAUREN HERRON MD Ot Z85.820 PERSONAL HISTORY OF MALIGNANT MELANOMA O 04/16/2018 LAUREN HERRON MD Ot Z87.01 PERSONAL HISTORY OF PNEUMONIA (RECURRENT 04/23/2018 LAUREN HERRON MD Ot I89.0 LYMPHEDEMA, NOT ELSEWHERE CLASSIFIED 04/23/2018 LAUREN HERRON MD Ot Z08 ENCNTR FOR FOLLOW-UP EXAM AFTER TRTMT FO 04/23/2018 LAUREN HERRON MD Ot Z45.2 ENCOUNTER FOR ADJUSTMENT AND MANAGEMENT 04/23/2018 LAUREN HERRON MD Ot Z79.899 OTHER NURSING HOME (CURRENT) DRUG THERAPY 04/23/2018 LAUREN HERRON MD Ot Z85.048 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, RECT 04/23/2018 LAUREN HERRON MD Ot Z85.820 PERSONAL HISTORY OF MALIGNANT MELANOMA O 04/23/2018 LAUREN HERRON MD Ot Z87.01 PERSONAL HISTORY OF PNEUMONIA (RECURRENT 04/23/2018 LAUREN HERRON MD Ot I89.0 LYMPHEDEMA, NOT ELSEWHERE CLASSIFIED 04/23/2018 LAUREN HERRON MD Ot Z08 ENCNTR FOR FOLLOW-UP EXAM AFTER TRTMT FO 04/23/2018 LAUREN HERRON MD, Ot Z45.2 ENCOUNTER FOR ADJUSTMENT AND MANAGEMENT 04/23/2018 LAUREN HERRON MD Ot Z79.899 OTHER NURSING HOME (CURRENT) DRUG THERAPY 04/23/2018 LAUREN HERRON MD Ot Z85.048 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 Visit Date/Time Discharge Status Pt. Type Provider Facility Loc./Unit Complaint [id number] 09/19/2012 09:39:00 09/19/2012 23:59:59 [facility] Outpatient [id number] 12/25/2017 10:30:00 12/25/2017 23:59:59 [id number] 05/28/2018 09:00:00 Document Registration [id number] 06/11/2018 09:18:00 06/11/2018 23:59:59 CLS Outpatient LAUREN HERRON MD Via [facility] ONC OV [id number] 06/10/2018 05:38:00 06/10/2018 14:12:00 DIS Outpatient SHILO MALDONADO MD [facility] PREOP COLONOSCOPY [id number] 03/19/2018 11:10:00 03/22/2018 00:01:00 DIS Outpatient LAUREN HERRON MD [facility] ONC OV [id number] 02/05/2018 11:10:00 03/19/2018 11:06:00 DIS Outpatient LAUREN HERRON MD [facility] ONC OV [id number] 12/25/2017 08:30:00 12/31/2017 00:01:00 DIS Outpatient LAUREN EHRRON MD [facility] ONC OV [id number] 08/20/2017 09:12:00 08/20/2017 00:01:00 DIS Outpatient LAUREN HERRON MD [facility] ONC OV [id number] 04/10/2017 10:22:00 04/17/2017 00:01:00 DIS Outpatient LAUREN HERRON MD [facility] ONC OV [id number] 12/12/2016 09:08:00 12/18/2016 00:01:00 DIS Outpatient LAUREN HERRON MD [facility] ONC OV [id number] 08/08/2016 09:12:00 08/14/2016 00:01:00 DIS Outpatient LAUREN HERRON MD [facility] ONC OV [id number] 06/07/2016 09:41:00 06/27/2016 11:46:00 DIS Outpatient LAUREN HERRON MD [facility] REHAB LYMPHEDEMA;H/O MALIGNANT MELANOMA;ADENOCARCINOMA [id number] 06/06/2016 09:26:00 06/06/2016 23:59:59 CLS Outpatient LAUREN HERRON MD [facility] RAD ADENOCARCINOMA OF RECTUM [id number] 04/03/2016 09:51:00 04/10/2016 00:01:00 DIS Outpatient LAUREN HERRON MD [facility] ONC OV [id number] 12/14/2015 10:14:00 12/20/2015 00:01:00 DIS Outpatient LAUREN HERRON MD [facility] ONC OV [id number] 08/10/2015 09:50:00 08/16/2015 00:01:00 DIS Outpatient LAUREN HERRON MD [facility] ONC OV [id number] 02/22/2015 10:10:00 2015 00:01:00 DIS Outpatient LAUREN HERRON MD [facility] ONC OV [id number] 01/04/2015 08:40:00 01/04/2015 13:33:00 DIS Outpatient SHILO MALDONADO MD [facility] SDC HX COLON CANCER [id number] 12/30/2014 06:13:00 12/30/2014 23:59:59 CLS Outpatient SHILO MALDONADO MD [facility] PREOP HX COLON CANCER [id number] 10/19/2014 12:08:00 10/25/2014 00:01:00 DIS Outpatient LAUREN HERRON MD [facility] ONC OV [id number] 06/01/2014 09:20:00 07/19/2014 00:01:00 DIS Outpatient LAUREN HERRON MD [facility] ONC OV [id number] 03/09/2014 10:12:00 03/16/2014 00:01:00 DIS Outpatient LAUREN HERRON MD [facility] ONC OV [id number] 11/03/2013 10:14:00 11/09/2013 00:01:00 DIS Outpatient LAUREN HERRON MD [facility] ONC OV [id number] 06/30/2013 09:32:00 07/06/2013 00:01:00 DIS Outpatient LAUREN HERRON MD [facility] ONC OV [id number] 02/24/2013 08:35:00 03/17/2013 00:01:00 DIS Outpatient GOPAL HENRY, LARUEN [facility] ONC OV [id number] 06/17/2018 10:15:00 KENDELL MALDONADO MD, SHILO Zapien [facility] ENDO SCREENING/SURVEILLANCE RECTAL CANCER [id number] 11/06/2012 12:17:00 Document Registration [id number] 10/31/2012 09:32:00 Document Registration [id number] 10/21/2012 09:06:00 Document Registration [id number] 08/22/2012 11:06:00 Document Registration [id number] 09/20/2011 13:27:00 Document Registration [id number] 02/22/2015 10:10:30 ACT Document Registration
--- NOTE | 2018-06-17 09:58 | History & Physicial ---
History of Present Illness History of Present Illness Reason for visit/HPI to undergo surveillance colonoscopy via his existing permanent colostomy. 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 Date of Admission 06/17/18 Date Seen by a Provider: Jun 17, 2018 Time Seen by a Provider: 09:57 I consulted on this patient on 06/17/18 09:56 Attending Physician Shilo Maldonado MD Admitting Physician Franko Talbot - [facility] Allergies and Home Medications Allergies Coded Allergies: No Known Drug Allergies (Unverified , 06/10/18) Home Medications Aspirin 81 Mg Tab.chew, 81 MG PO DAILY, (Reported) Niacinamide 500 Mg Tablet, 1,000 MG PO DAILY, (Reported) Patient Home Medication List Home Medication List Reviewed: Yes Past Cxtpoie-Pcubcn-Pihiwt Hx Patient Social History Marrital Status: Employed/Student: retired Alcohol Use: Denies Use Recreational Drug Use: No Smoking Status: Former Smoker Former Smoker, Quit: Jun 10, 2013 Recent Foreign Travel: No Contact w/other who traveled: No Recent Hopitalizations: No Recent Infectious Disease Expo: No Immunizations Up To Date Tetanus Booster (TDap): Unknown Date of Pneumonia Vaccine: May 04, 2014 Date of Influenza Vaccine: May 13, 2018 Seasonal Allergies Seasonal Allergies: No Surgeries Yes Bowel Surgery Respiratory No Cardiovascular No Reproductive System Hx Reproductive Disorders: No Sexually Transmitted Disease: No HIV/AIDS: No Gastrointestinal No Musculoskeletal Yes Arthritis Endocrine History of Endocrine Disorders: No HEENT Loss of Vision: Denies Hearing Impairment: Hard of Hearing Cancer Yes Rectal, Skin, Melanoma Did You Recieve Any Treatments: Yes Type of Treatment: Chemotherapy, Radiation, Surgical Intervention Blood Transfusions Adverse Reaction to a Blood Tr: No (N/A) Review of Systems Constitutional: no symptoms reported EENTM: no symptoms reported Respiratory: no symptoms reported Cardiovascular: no symptoms reported Gastrointestinal: no symptoms reported Genitourinary: no symptoms reported Musculoskeletal: joint pain Skin: no symptoms reported Psychiatric/Neurological: No Symptoms Reported Physical Exam Vital Signs Vital Signs - First Documented 06/17/18 09:03 Temp 99.2 Pulse 76 Resp 18 B/P (MAP) 165/79 (107) Pulse Ox 94 O2 Delivery Room Air Capillary Refill : Height, Weight, BMI Height: 5'8.00" Weight: 260lbs. 0.0oz. 117.003533ln; 39.5 BMI Method: General Appearance: No Apparent Distress Neck: Normal Inspection Respiratory: Lungs Clear Cardiovascular: Regular Rate, Rhythm Gastrointestinal: Non Tender, Soft Extremity: Normal Inspection Neurologic/Psychiatric: Oriented x3 Skin: Warm/Dry Assessment/Plan Assessment and Plan gentleman with a previous history of distal rectal carcinoma. Abdomino- perineal resection completed followed by adjuvant chemoradiation. For surveillance colonoscopy via colostomy. Admission Diagnosis Admission Status: Other (Outpt Proc) SHILO MALDONADO MD Jun 17, 2018 09:58
--- NOTE | 2018-06-17 09:59 | Conscious Sedation/ASA ---
Conscious Sedation Pre-Proced Time 09:59 ASA Score 2 For ASA 3 and 4: Consider anesthesia and medical clearance. Also, for patients with a history of failed moderate sedation consider anesthesia. Airway Lungs Heart ASA score ASA 1: a normal healthy patient ASA 2: a patient with a mild systemic disease (mid diabetes, controlled hypertension, obesity ASA 3: a patient with a severe systemic disease that limits activity (angina , COPD, prior Myocardial infarction) ASA 4: a patient with an incapacitating disease that is a constant threat to life (CHF, renal failure) ASA 5: a moribund patient not expected to survive 24 hrs. (ruptured aneurysm) ASA 6: a declared brain patient whose organs are being harvested. For emergent operations, add the letter E after the classification Mallampati Classification Grade 2 Sedation Plan Discussed options with patient/fam The patient is an appropriate candidate to undergo the planned procedure, sedation, and anesthesia. The patient immediately re-assessed prior to indication. SHILO MALDONADO MD Jun 17, 2018 09:59
[2018-06-17] MEDS ORDERED: MIDAZOLAM 2 MG/2 ML (VERSED) VIAL ONE ×2 (10:41)
[2018-06-17] MEDS ORDERED: fentaNYL INJECTION 100 MCG/2 ML AMP ONE (10:42)
[2018-06-17] MEDS ORDERED: ONDANSETRON 4 MG/2 ML (SDV) Z0FRAN ONE (10:47)
[2018-06-17] MEDS ORDERED: HEParin (CENTRAL IV FLUSH) 500 UNIT/5 ML SYR IV ONE (11:00)
--- NOTE | 2018-06-17 11:14 | Endo Procedure Record ---
Endo Procedure Report Date of Procedure Last Colonoscopy: Yes (2014) Jun 17, 2018 Surgeon (s) SHILO MALDONADO MD Post Procedure/Op Diagnosis normal colonoscopy Procedure Performed colonoscopy to cecum, via colostomy Description of Procedure Anesthesia Type: Conscious Sedation Specimen(s) collected/removed none Description of the Procedure Indication for the procedure: This gentleman had undergone abdomino-perineal resection of his rectum to manage distal carcinoma of the rectum, followed by adjuvant chemoradiation. He came in for surveillance colonoscopy via his left lower quadrant colostomy. Informed consent was obtained after reviewing the procedure in detail. Description of the procedure: He was placed supine on the gurney and conscious sedation achieved using Versed and fentanyl. Digital examination of the colostomy was unremarkable. The colonoscope was then introduced in the colostomy and advanced all the way up to the cecum without much difficulty. The quality of bowel preparation was excellent. The scope was then withdrawn slowly and the mucosa examined in a systematic fashion. There was no abnormality. He tolerated the procedure well andwas taken to the recovery room in a stable condition. Impression: Previous abdominoperineal resection of rectum for carcinoma. Normal colonoscopy. Recommend repeating in 3 years. SHILO MALDONADO MD Jun 17, 2018 11:14
[2018-06-17] MEDS ORDERED: ONDANSETRON 4 MG/2 ML (SDV) Z0FRAN IVP ONE (11:15)
--- NOTE | 2018-06-17 11:15 | Discharge Inst-Simple/Standard ---
Discharge Inst-Standard Discharge Medications New, Converted or Re-Newed RX: Other Patient Instructions/Follow Up Plan of Care/Instructions/FU: repeat colonoscopy in 3 years Activity as Tolerated: Yes Discharge Diet: No Restrictions SHILO MALDONADO MD Jun 17, 2018 11:15
[2018-06-17 11:25] VITALS: BP 147/61
[2018-06-17 11:50] VITALS: BP 129/66
[2018-06-17 12:20] VITALS: BP 129/66
== END 2018-06-17 12:20 | disposition home or self-care (01) ==
LOC: ENDO 08:27
PROVIDERS: ATTEND Surgery
DX: Z09 Encounter for follow-up examination after completed treatment for conditions other than malignant neoplasm (principal); Z85.040 Personal history of malignant carcinoid tumor of rectum; Z92.21 Personal history of antineoplastic chemotherapy; Z92.3 Personal history of irradiation; Z87.891 Personal history of nicotine dependence

== ENCOUNTER 2018-06-25 08:44 | Outpatient (RCR) | payer MEDICARE, MEDICAID ==
[2018-06-11 10:01] LABS: BASOPHILS % (AUTO) 0 % (0-10); EOSINOPHILS # (AUTO) 0.1 10^3/uL (0.0-0.3); EOSINOPHILS % (AUTO) 2 % (0-10); HEMATOCRIT 40 % (40-54); HEMOGLOBIN 13.8 G/DL (13.3-17.7); LYMPHOCYTES % (AUTO) 27 % (12-44); MEAN CORPUSCULAR HEMOGLOBIN 33 PG (25-34); MEAN CORPUSCULAR HGB CONC 35 G/DL (32-36); MEAN CORPUSCULAR VOLUME 94 FL (80-99); MEAN PLATELET VOLUME 9.2 FL (7.4-10.4); MONOCYTES # (AUTO) 0.7 X 10^3 (0.0-1.0); MONOCYTES % (AUTO) 10 % (0-12); NEUTROPHILS # (AUTO) 4.5 X 10^3 (1.8-7.8); NEUTROPHILS % (AUTO) 61 % (42-75); PLATELET COUNT 307 10^3/uL (130-400); RED BLOOD COUNT 4.21 10^6/uL (4.35-5.85); RED CELL DISTRIBUTION WIDTH 12.2 % (10.0-14.5); WHITE BLOOD COUNT 7.4 10^3/uL (4.3-11.0)
[2018-06-11 10:16] LABS: ALANINE AMINOTRANSFERASE 41 U/L (0-55); ALBUMIN 4.1 GM/DL (3.2-4.5); ALKALINE PHOSPHATASE 47 U/L (40-136); BILIRUBIN,TOTAL 0.5 MG/DL (0.1-1.0); BUN/CREATININE RATIO 17; CALCIUM 9.2 MG/DL (8.5-10.1); CARBON DIOXIDE 23 MMOL/L (21-32); CHLORIDE 107 MMOL/L (98-107); CREATININE SERUM 1.06 MG/DL (0.60-1.30); GFR ESTIMATED > 60; GLUCOSE 100 MG/DL (70-105); POTASSIUM 4.1 MMOL/L (3.6-5.0); SODIUM 140 MMOL/L (135-145); TOTAL PROTEIN 6.8 GM/DL (6.4-8.2)
== END 2018-07-29 | disposition home or self-care (01) ==
LOC: ONC 08:44
PROVIDERS: ATTEND Internal Medicine Hematology & Oncology
DX: Z08 Encounter for follow-up examination after completed treatment for malignant neoplasm (principal); Z85.048 Personal history of other malignant neoplasm of rectum, rectosigmoid junction, and anus; Z85.820 Personal history of malignant melanoma of skin; I89.0 Lymphedema, not elsewhere classified; Z87.01 Personal history of pneumonia (recurrent); Z79.899 Other long term (current) drug therapy; Z45.2 Encounter for adjustment and management of vascular access device
CPT/HCPCS: 36591; 80053; 82378; 85025; 96523; 99213

== ENCOUNTER 2018-10-22 10:54 | Outpatient (RCR) | payer MEDICARE, MEDICAID ==
[~2018-10-22 10:54] MED LIST changes: -NAPR220C46 PO; +NAPR220C61 PO
== END 2018-10-28 | disposition home or self-care (01) ==
LOC: ONC 10:54
PROVIDERS: ATTEND Internal Medicine Hematology & Oncology
DX: Z08 Encounter for follow-up examination after completed treatment for malignant neoplasm (principal); Z85.048 Personal history of other malignant neoplasm of rectum, rectosigmoid junction, and anus; Z85.820 Personal history of malignant melanoma of skin; I89.0 Lymphedema, not elsewhere classified; Z87.01 Personal history of pneumonia (recurrent); Z79.899 Other long term (current) drug therapy; Z45.2 Encounter for adjustment and management of vascular access device
CPT/HCPCS: 96523

== ENCOUNTER 2019-02-11 07:59 | Outpatient (RCR) | payer MEDICAID, MEDICARE ==
[2018-12-31 08:51] LABS: BASOPHILS % (AUTO) 0 % (0-10); EOSINOPHILS # (AUTO) 0.2 10^3/uL (0.0-0.3); EOSINOPHILS % (AUTO) 3 % (0-10); HEMATOCRIT 41 % (40-54); HEMOGLOBIN 14.4 G/DL (13.3-17.7); LYMPHOCYTES % (AUTO) 29 % (12-44); MEAN CORPUSCULAR HEMOGLOBIN 33 PG (25-34); MEAN CORPUSCULAR HGB CONC 35 G/DL (32-36); MEAN CORPUSCULAR VOLUME 96 FL (80-99); MEAN PLATELET VOLUME 9.4 FL (7.4-10.4); MONOCYTES # (AUTO) 0.7 X 10^3 (0.0-1.0); MONOCYTES % (AUTO) 11 % (0-12); NEUTROPHILS # (AUTO) 3.8 X 10^3 (1.8-7.8); NEUTROPHILS % (AUTO) 57 % (42-75); PLATELET COUNT 270 10^3/uL (130-400); RED CELL DISTRIBUTION WIDTH 12.3 % (10.0-14.5); WHITE BLOOD COUNT 6.7 10^3/uL (4.3-11.0)
[2018-12-31 09:10] LABS: BUN/CREATININE RATIO 16; CALCIUM 9.5 MG/DL (8.5-10.1); CARBON DIOXIDE 24 MMOL/L (21-32); CHLORIDE 107 MMOL/L (98-107); CREATININE SERUM 1.14 MG/DL (0.60-1.30); GFR ESTIMATED > 60; GLUCOSE 100 MG/DL (70-105); POTASSIUM 4.1 MMOL/L (3.6-5.0); SODIUM 142 MMOL/L (135-145)
[2018-12-31 09:11] LABS: ALANINE AMINOTRANSFERASE 54 U/L (0-55); ALBUMIN 4.3 GM/DL (3.2-4.5); ALKALINE PHOSPHATASE 53 U/L (40-136); BILIRUBIN,TOTAL 0.5 MG/DL (0.1-1.0); TOTAL PROTEIN 6.9 GM/DL (6.4-8.2)
== END 2019-03-03 | disposition home or self-care (01) ==
LOC: ONC 07:59
PROVIDERS: ATTEND Internal Medicine Hematology & Oncology
DX: Z08 Encounter for follow-up examination after completed treatment for malignant neoplasm (principal); Z85.048 Personal history of other malignant neoplasm of rectum, rectosigmoid junction, and anus; Z85.820 Personal history of malignant melanoma of skin; Z45.2 Encounter for adjustment and management of vascular access device
CPT/HCPCS: 36591; 80053; 82378; 85025; 96523

== ENCOUNTER 2019-06-17 09:53 | Outpatient (RCR) | payer MEDICAID, MEDICARE | END 2019-06-23 | disposition home or self-care (01) | LOC: ONC 09:53 | PROVIDERS: ATTEND Internal Medicine Hematology & Oncology | DX: Z08 Encounter for follow-up examination after completed treatment for malignant neoplasm (principal); Z85.048 Personal history of other malignant neoplasm of rectum, rectosigmoid junction, and anus; Z85.820 Personal history of malignant melanoma of skin; Z45.2 Encounter for adjustment and management of vascular access device | CPT/HCPCS: 96523 ==

== ENCOUNTER 2019-10-21 11:32 | Outpatient (RCR) | payer MEDICARE | END 2019-10-27 | disposition home or self-care (01) | LOC: ONC 11:32 | PROVIDERS: ATTEND Internal Medicine Hematology & Oncology | DX: Z45.2 Encounter for adjustment and management of vascular access device (principal); Z08 Encounter for follow-up examination after completed treatment for malignant neoplasm; Z85.048 Personal history of other malignant neoplasm of rectum, rectosigmoid junction, and anus; Z85.820 Personal history of malignant melanoma of skin | CPT/HCPCS: 96523 ==

== ENCOUNTER 2020-02-24 08:46 | Outpatient (RCR) | payer MEDICARE ==
[2020-01-13 08:51] LABS: BASOPHILS % (AUTO) 0 % (0-10); EOSINOPHILS # (AUTO) 0.3 10^3/uL (0.0-0.3); EOSINOPHILS % (AUTO) 3 % (0-10); HEMATOCRIT 42 % (40-54); HEMOGLOBIN 14.7 G/DL (13.3-17.7); LYMPHOCYTES # (AUTO) 2.5 X 10^3 (1.0-4.0); LYMPHOCYTES % (AUTO) 28 % (12-44); MEAN CORPUSCULAR HEMOGLOBIN 34 PG (25-34); MEAN CORPUSCULAR HGB CONC 35 G/DL (32-36); MEAN CORPUSCULAR VOLUME 95 FL (80-99); MEAN PLATELET VOLUME 9.3 FL (7.4-10.4); MONOCYTES # (AUTO) 1.1 X 10^3 (0.0-1.0); MONOCYTES % (AUTO) 12 % (0-12); NEUTROPHILS % (AUTO) 56 % (42-75); PLATELET COUNT 285 10^3/uL (130-400); RED CELL DISTRIBUTION WIDTH 12.6 % (10.0-14.5); WHITE BLOOD COUNT 8.9 10^3/uL (4.3-11.0)
[2020-01-13 09:15] LABS: ALANINE AMINOTRANSFERASE 43 U/L (0-55); ALKALINE PHOSPHATASE 48 U/L (40-136); BILIRUBIN,TOTAL 0.5 MG/DL (0.1-1.0); BUN/CREATININE RATIO 16; CALCIUM 8.8 MG/DL (8.5-10.1); CARBON DIOXIDE 23 MMOL/L (21-32); CHLORIDE 108 MMOL/L (98-107); CREATININE SERUM 1.09 MG/DL (0.60-1.30); GFR ESTIMATED > 60; GLUCOSE 99 MG/DL (70-105); POTASSIUM 4.1 MMOL/L (3.6-5.0); SODIUM 139 MMOL/L (135-145); TOTAL PROTEIN 6.8 GM/DL (6.4-8.2)
[~2020-02-24 08:46] MED LIST changes: -NIAC500T8 PO; +[UNRECOGNIZED DRUG - CODE] PO
== END 2020-03-01 | disposition home or self-care (01) ==
LOC: ONC 08:46
PROVIDERS: ATTEND Internal Medicine Hematology & Oncology
DX: Z45.2 Encounter for adjustment and management of vascular access device (principal); Z85.048 Personal history of other malignant neoplasm of rectum, rectosigmoid junction, and anus; Z85.820 Personal history of malignant melanoma of skin
CPT/HCPCS: 36591; 80053; 82378; 85025; 96523

== ENCOUNTER 2020-06-29 08:25 | Outpatient (RCR) | payer MEDICARE | END 2020-07-05 | disposition home or self-care (01) | LOC: ONC 08:25 | PROVIDERS: ATTEND Internal Medicine Hematology & Oncology | DX: Z45.2 Encounter for adjustment and management of vascular access device (principal); I89.0 Lymphedema, not elsewhere classified; K29.70 Gastritis, unspecified, without bleeding; Z85.048 Personal history of other malignant neoplasm of rectum, rectosigmoid junction, and anus; Z85.820 Personal history of malignant melanoma of skin; Z92.21 Personal history of antineoplastic chemotherapy; Z98.890 Other specified postprocedural states | CPT/HCPCS: 96523 ==

== ENCOUNTER 2020-11-02 08:46 | Outpatient (RCR) | payer MEDICARE | END 2020-11-08 | disposition home or self-care (01) | LOC: ONC 08:46 | PROVIDERS: ATTEND Internal Medicine Hematology & Oncology | DX: Z45.2 Encounter for adjustment and management of vascular access device (principal); I89.0 Lymphedema, not elsewhere classified; K29.70 Gastritis, unspecified, without bleeding; Z85.048 Personal history of other malignant neoplasm of rectum, rectosigmoid junction, and anus; Z85.820 Personal history of malignant melanoma of skin; Z92.21 Personal history of antineoplastic chemotherapy; Z98.890 Other specified postprocedural states | CPT/HCPCS: 96523 ==

== ENCOUNTER 2021-01-25 08:29 | Outpatient (RCR) | payer MEDICARE, MEDICAID ==
[2021-01-25 08:47] LABS: BASOPHILS # (AUTO) 0.1 10^3/uL (0.0-0.1); BASOPHILS % (AUTO) 1 % (0-10); EOSINOPHILS # (AUTO) 0.4 10^3/uL (0.0-0.3); EOSINOPHILS % (AUTO) 3 % (0-10); HEMATOCRIT 42 % (40-54); HEMOGLOBIN 14.5 g/dL (13.3-17.7); LYMPHOCYTES # (AUTO) 2.5 10^3/uL (1.0-4.0); LYMPHOCYTES % (AUTO) 23 % (12-44); MEAN CORPUSCULAR HEMOGLOBIN 33 pg (25-34); MEAN CORPUSCULAR HGB CONC 34 g/dL (32-36); MEAN CORPUSCULAR VOLUME 96 fL (80-99); MEAN PLATELET VOLUME 10.2 fL (9.0-12.2); MONOCYTES # (AUTO) 0.9 10^3/uL (0.0-1.0); MONOCYTES % (AUTO) 9 % (0-12); NEUTROPHILS % (AUTO) 64 % (42-75); PLATELET COUNT 314 10^3/uL (130-400); WHITE BLOOD COUNT 10.9 10^3/uL (4.3-11.0)
[2021-01-25 09:11] LABS: ALANINE AMINOTRANSFERASE 37 U/L (0-55); ALBUMIN 3.9 GM/DL (3.2-4.5); ALKALINE PHOSPHATASE 44 U/L (40-136); BILIRUBIN,TOTAL 0.5 MG/DL (0.1-1.0); BUN/CREATININE RATIO 17; CALCIUM 8.9 MG/DL (8.5-10.1); CARBON DIOXIDE 24 MMOL/L (21-32); CHLORIDE 109 MMOL/L (98-107); CREATININE SERUM 1.08 MG/DL (0.60-1.30); GFR ESTIMATED > 60; GLUCOSE 104 MG/DL (70-105); POTASSIUM 4.2 MMOL/L (3.6-5.0); SODIUM 140 MMOL/L (135-145); TOTAL PROTEIN 6.5 GM/DL (6.4-8.2)
[2021-03-01] MEDS ORDERED: DEXA6TAB6 PO (18:31)
[2021-03-04] MEDS ORDERED: DEXA6TAB PO (11:20)
[2021-03-04] MEDS ORDERED: NAPR220T66 PO (11:20)
[2021-03-04] MEDS ORDERED: KETO120S13 TOP (11:20)
[2021-03-04] MEDS ORDERED: OMEG-160 PO (11:20)
== END 2021-03-13 | disposition home or self-care (01) ==
LOC: ONC 08:29
PROVIDERS: ATTEND Internal Medicine Hematology & Oncology
DX: Z45.2 Encounter for adjustment and management of vascular access device (principal); I89.0 Lymphedema, not elsewhere classified; K29.70 Gastritis, unspecified, without bleeding; F17.210 Nicotine dependence, cigarettes, uncomplicated; Z85.048 Personal history of other malignant neoplasm of rectum, rectosigmoid junction, and anus; Z85.820 Personal history of malignant melanoma of skin; Z92.21 Personal history of antineoplastic chemotherapy; Z98.890 Other specified postprocedural states; Z92.3 Personal history of irradiation; Z79.82 Long term (current) use of aspirin; Z79.899 Other long term (current) drug therapy
CPT/HCPCS: 36591; 80053; 82378; 85025; 96523

== ENCOUNTER 2021-03-01 15:47 | Emergency (ER) | payer MEDICARE, MEDICAID ==
[~2021-03-01] VITALS: Ht 172 cm; Wt 114.0 kg
[2021-03-01] MEDS ORDERED: LACTATED RINGERS 1,000 ML IV ONE (16:28)
[2021-03-01] MEDS ORDERED: ONDANSETRON 4 MG/2 ML (SDV) Z0FRAN IVP ONE (16:30)
[2021-03-01] MEDS ORDERED: KETOROLAC 30 MG/ML VIAL IVP ONE (16:30)
[2021-03-01] MEDS ORDERED: ONDANSETRON 4 MG/2 ML (SDV) Z0FRAN ONE (16:30)
--- NOTE | 2021-03-01 16:46 | Diagnostic Imaging Report ---
INDICATION: COVID-19 positive. TIME OF EXAM: 4:40 PM COMPARISON is made with prior chest from 09/20/2011. FINDINGS: The heart size is stable. Right chest wall catheter has tip overlying the SVC. There appear to be some peripheral infiltrates in the right upper lobe. There may be minimal infiltrates in the left base, as well. No effusion or pneumothorax is seen. IMPRESSION: Bilateral pulmonary infiltrates suggestive of pneumonia. Dictated by: Dictated on workstation # [id number]
--- NOTE | 2021-03-01 16:53 | ED Cough/URI ---
General Chief Complaint: Cough/Cold/Flu Symptoms Stated Complaint: COVID POSITIVE, SOB Nursing Triage Note: PT TO ROOM 4 PT CO OF HAVING COVID SINCE 02/20 TESTED + ON 02/21. COUGH, FEVER, BODY ACHES, LOSS TASTE AND SMELL Source: patient, certified court/medical interpreter (IRIS ARAUJO APRN) History of Present Illness Date Seen by Provider: Mar 01, 2021 Time Seen by Provider: 16:53 Initial Comments To ER with reports of having Covid since 02 20 and tested positive on 02/21. Cough fever body aches. Timing/Duration: constant Severity/Quality: productive cough Prior Episodes/Possible Cause: no prior episodes Associated Symptoms: denies symptoms (IRIS ARAUJO APRN) Allergies and Home Medications Allergies Coded Allergies: No Known Drug Allergies (Unverified , 06/10/18) Home Medications Aspirin 81 Mg Tab.chew, 81 MG PO DAILY, (Reported) Dexamethasone 6 Mg Tablet, 6 MG PO DAILY Prescribed by: IRIS ARAUJO on 03/01/21 1831 Niacinamide 500 Mg Tablet, 1,000 MG PO DAILY, (Reported) Patient Home Medication List Home Medication List Reviewed: Yes (IRIS ARAUJO APRN) Review of Systems Review of Systems Constitutional: see HPI, chills, fever EENTM: see HPI Respiratory: see HPI, cough Cardiovascular: no symptoms reported Genitourinary: no symptoms reported Musculoskeletal: no symptoms reported Skin: no symptoms reported Psychiatric/Neurological: No Symptoms Reported Hematologic/Lymphatic: No Symptoms Reported Immunological/Allergic: no symptoms reported (IRIS ARAUJO APRN) Past Icmwehn-Qsrghw-Hwnmpb Hx Patient Social History Tobacco Use?: No Substance use?: No Alcohol Use?: No Pt feels they are or have been: No (IRIS ARAUJO APRN) Immunizations Up To Date Tetanus Booster (TDap): Unknown COVID19 Vaccine Chief Deputy Coroner: no vaccine (IRIS ARAUJO APRN) Seasonal Allergies Seasonal Allergies: No (IRIS ARAUJO APRN) Past Medical History Surgery/Hospitalization HX: CA COLON AND RECTUM Surgeries: Yes Bowel Surgery Respiratory: No Cardiac: No Reproductive Disorders: No Sexually Transmitted Disease: No HIV/AIDS: No Gastrointestinal: No Musculoskeletal: Yes Arthritis Endocrine: No Loss of Vision: Denies Hearing Impairment: Hard of Hearing Cancer: Yes Rectal, Skin, Melanoma Did You Recieve Any Treatments: Yes What Type of Treatment Did You: Chemotherapy, Radiation, Surgical Intervention Adverse Reaction/Blood Tranf: No (N/A) (IRIS ARAUJO APRN) Physical Exam Vital Signs - First Documented 03/01/21 16:00 Temp 37.8 Pulse 75 Resp 24 B/P (MAP) 164/89 (114) Pulse Ox 92 O2 Delivery Room Air (ACE REYES MD) Capillary Refill : Less Than 3 Seconds (IRIS ARAUJO APRN) Height: 5'8.00" Weight: 260lbs. 0.0oz. 117.307433ss; 38.00 BMI Method: General Appearance: WD/WN, no apparent distress Eyes: Bilateral Eye Normal Inspection, Bilateral Eye PERRL, Bilateral Eye EOMI Neck: non-tender, full range of motion Respiratory: normal breath sounds, no respiratory distress, no accessory muscle use Cardiovascular: regular rate, rhythm, no murmur Gastrointestinal: normal bowel sounds, non tender, soft, other (colostomy to LLQ secondary to colon resction for rectal cancer in 2008 ) Neurologic/Psychiatric: alert, normal mood/affect, oriented x 3 Skin: normal color, warm/dry (IRIS ARAUJO APRN) Progress/Results/Core Measures Suspected Sepsis SIRS Temperature: Pulse: 75 Respiratory Rate: 24 Laboratory Tests 03/01/21 16:10: White Blood Count 7.8 Blood Pressure 164 /89 Mean: 114 Laboratory Tests 03/01/21 16:10: Creatinine 1.00, Platelet Count 263, Total Bilirubin 0.4 (IRIS ARAUJO APRN) Results/Orders Lab Results Laboratory Tests Test 03/01/21 16:10 Range/Units White Blood Count 7.8 4.3-11.0 10^3/uL Red Blood Count 4.30 4.30-5.52 10^6/uL Hemoglobin 14.2 13.3-17.7 g/dL Hematocrit 40 40-54 % Mean Corpuscular Volume 94 80-99 fL Mean Corpuscular Hemoglobin 33 25-34 pg Mean Corpuscular Hemoglobin Concent 35 32-36 g/dL Red Cell Distribution Width 12.7 10.0-14.5 % Platelet Count 263 130-400 10^3/uL Mean Platelet Volume 10.6 9.0-12.2 fL Immature Granulocyte % (Auto) 1 % Neutrophils (%) (Auto) 86 H 42-75 % Lymphocytes (%) (Auto) 7 L 12-44 % Monocytes (%) (Auto) 5 0-12 % Eosinophils (%) (Auto) 0 0-10 % Basophils (%) (Auto) 0 0-10 % Neutrophils # (Auto) 6.8 1.8-7.8 X 10^3 Lymphocytes # (Auto) 0.6 L 1.0-4.0 X 10^3 Monocytes # (Auto) 0.4 0.0-1.0 X 10^3 Eosinophils # (Auto) 0.0 0.0-0.3 10^3/uL Basophils # (Auto) 0.0 0.0-0.1 10^3/uL Immature Granulocyte # (Auto) 0.1 0.0-0.1 10^3/uL Neutrophils % (Manual) 90 % Lymphocytes % (Manual) 5 % Monocytes % (Manual) 5 % Blood Morphology Comment NORMAL D-Dimer 0.56 H 0.00-0.49 UG/ML Sodium Level 135 135-145 MMOL/L Potassium Level 3.8 3.6-5.0 MMOL/L Chloride Level 102 98-107 MMOL/L Carbon Dioxide Level 24 21-32 MMOL/L Anion Gap 9 5-14 MMOL/L Blood Urea Nitrogen 15 7-18 MG/DL Creatinine 1.00 0.60-1.30 MG/DL Estimat Glomerular Filtration Rate 73 BUN/Creatinine Ratio 15 Glucose Level 105 70-105 MG/DL Calcium Level 8.2 L 8.5-10.1 MG/DL Corrected Calcium 8.6 8.5-10.1 MG/DL Total Bilirubin 0.4 0.1-1.0 MG/DL Aspartate Amino Transf (AST/SGOT) 32 5-34 U/L Alanine Aminotransferase (ALT/SGPT) 26 0-55 U/L Alkaline Phosphatase 47 40-136 U/L C-Reactive Protein High Sensitivity 11.22 H 0.00-0.50 MG/DL Total Protein 6.7 6.4-8.2 GM/DL Albumin 3.5 3.2-4.5 GM/DL Procalcitonin 0.09 <0.10 NG/ML (ACE REYES MD) Vital Signs/I&O 03/01/21 03/01/21 03/01/21 16:00 16:00 19:45 Temp 37.8 36.8 Pulse 75 70 Resp 24 18 B/P (MAP) 164/89 (114) 153/76 (114) Pulse Ox 92 96 O2 Delivery Room Air Room Air 03/02/21 00:00 Intake Total 1000 ml Balance 1000 ml (ACE REYES MD) Vital Signs/I&O Capillary Refill : Less Than 3 Seconds (IRIS ARAUJO APRN) Blood Pressure Mean: 114 Diagnostic Imaging Diagonstic Imaging: Xray Plain Films/CT/US/NM/MRI: chest Comments NAME: [facility]UR[facility]OW[facility] REC#: [id number] PT STATUS: REG ER : 1945 PHYSICIAN: IRIS ARAUJO APRN ADMIT DATE: 03/01/21/ER Draft Date of Exam:03/01/21 CHEST 1 VIEW, AP/PA ONLY INDICATION: COVID-19 positive. TIME OF EXAM: 4:40 PM COMPARISON is made with prior chest from 09/20/2011. FINDINGS: The heart size is stable. Right chest wall catheter has tip overlying the SVC. There appear to be some peripheral infiltrates in the right upper lobe. There may be minimal infiltrates in the left base, as well. No effusion or pneumothorax is seen. IMPRESSION: Bilateral pulmonary infiltrates suggestive of pneumonia. Dictated on workstation # [id number] Dict: 03/01/21 1642 Trans: 03/01/21 1646 [facility] [id number] Interpreted by: CARLOS TAYLOR MD Electronically signed by: (IRIS ARAUJO APRN) Departure Communication (Admissions) SpO2 90-91% room air here at rest. 1824- discussed findings with the patient. His age-adjusted D-dimer is negative. His oxygen saturation at this time is 91 to 95% on room air. He did not drop with ambulation around the room and during conversation his SPO2 rises. Neither of these to either him or his are oxygen dependent. They do have a pulse oximeter at home. The plan is to send him home on some dexamethasone with plans to observe SPO2 at home and return for any worsening. Offered both of these patients admission and they would both prefer to go home. He became symptomatic on the first, tomorrow will be 10 days and would be too late to receive Regeneron. (IRIS ARAUJO APRN) Impression Primary Impression: COVID-19 Disposition: 01 HOME, SELF-CARE Condition: Stable Departure-Patient Inst. Decision time for Depature: 18:26 (IRIS ARAUJO APRN) Referrals: [facility] (PCP) Primary Care Physician ALICE ORDOÑEZ (Family) Primary Care Physician Patient Instructions: COVID-19 Overview Add. Discharge Instructions: 1. If your oxygen saturation is consistently in the 88 to 90% range you should return to the emergency room or if he has any worsening symptoms such as shortness of breath. Otherwise take the steroids as directed follow-up with your doctor next week. All discharge instructions reviewed with patient and/or family. Voiced unders tanding. Scripts Dexamethasone (Decadron) 6 Mg Tablet 6 MG PO DAILY, #5 TAB Prov: IRIS ARAUJO APRN 03/01/21 ATTENDING PHYSICIAN NOTE: I was physically present as attending physician in the emergency department during the care of this patient, but I was not directly involved in the decision making or delivery of care for this patient. (ACE REYES MD) IRIS ARAUJO APRN Mar 01, 2021 16:53 ACE REYES MD Mar 02, 2021 22:35
[2021-03-01 16:59] LABS: ALBUMIN 3.5 GM/DL (3.2-4.5); POTASSIUM 3.8 MMOL/L (3.6-5.0)
[2021-03-01 17:00] LABS: CALCIUM 8.2 MG/DL (8.5-10.1)
[2021-03-01 17:02] LABS: TOTAL PROTEIN 6.7 GM/DL (6.4-8.2)
[2021-03-01 17:03] LABS: BASOPHILS % (AUTO) 0 % (0-10); EOSINOPHILS % (AUTO) 0 % (0-10); HEMATOCRIT 40 % (40-54); HEMOGLOBIN 14.2 g/dL (13.3-17.7); LYMPHOCYTES # (AUTO) 0.6 X 10^3 (1.0-4.0); LYMPHOCYTES % (AUTO) 7 % (12-44); MEAN CORPUSCULAR HEMOGLOBIN 33 pg (25-34); MEAN CORPUSCULAR HGB CONC 35 g/dL (32-36); MEAN CORPUSCULAR VOLUME 94 fL (80-99); MEAN PLATELET VOLUME 10.6 fL (9.0-12.2); MONOCYTES # (AUTO) 0.4 X 10^3 (0.0-1.0); MONOCYTES % (AUTO) 5 % (0-12); NEUTROPHILS # (AUTO) 6.8 X 10^3 (1.8-7.8); NEUTROPHILS % (AUTO) 86 % (42-75); PLATELET COUNT 263 10^3/uL (130-400); WHITE BLOOD COUNT 7.8 10^3/uL (4.3-11.0)
[2021-03-01 17:04] LABS: BILIRUBIN,TOTAL 0.4 MG/DL (0.1-1.0)
[2021-03-01 17:26] LABS: LYMPHOCYTES % (MANUAL) 5 %; MONOCYTES % (MANUAL) 5 %; NEUTROPHILS % (MANUAL) 90 %; RBC MORPH NORMAL
[2021-03-01] MEDS ORDERED: dexAMETHasone 6 MG TAB (DECADRON) PO SCH (18:30)
[2021-03-01] MEDS ORDERED: DEXA6TAB6 PO (18:31)
[2021-03-01 19:45] VITALS: BP 153/76
== END 2021-03-01 19:56 | disposition home or self-care (01) ==
LOC: EDUNIT# 15:47 → ER 15:51
DX: U07.1 COVID-19 (principal); Z79.82 Long term (current) use of aspirin
CPT/HCPCS: 36415; 71045; 80053; 84145; 85007; 85027; 85379; 86141

== ENCOUNTER 2021-03-03 12:56 | Inpatient (IN) | payer MEDICARE, MEDICAID ==
[~2021-03-03] VITALS: Ht 172 cm; Wt 114.3 kg
[~2021-03-03 12:56] MED LIST changes: +DEXA6TAB6 PO
--- NOTE | 2021-03-03 13:29 | ED Cough/URI ---
General Chief Complaint: Respiratory Problems Stated Complaint: COVID +, SOB Source: patient Exam Limitations: no limitations History of Present Illness Date Seen by Provider: Mar 03, 2021 Time Seen by Provider: 13:17 Initial Comments 76-year-old male recently diagnosed with Covid, symptomatic February 20 with a positive test February 21 reportedly coming in due to worsening shortness of breath and hypoxia. He states the cough has progressed, and he has persistently been taking his oxygen saturation and even with resting he is unable to get it above 88%. He has been taking Decadron that was prescribed to him in the emergency department. His dyspnea is severe, constant, worse with exertion, better with rest. He is otherwise denying any chest pain, nausea, vomiting, diarrhea, recent fever, focal weakness, numbness, or any other concerns. Allergies and Home Medications Allergies Coded Allergies: No Known Drug Allergies (Unverified , 06/10/18) Home Medications Aspirin 81 Mg Tab.chew, 81 MG PO DAILY, (Reported) Dexamethasone 6 Mg Tablet, 6 MG PO DAILY Prescribed by: IRIS ARAUJO on 03/01/211830 Niacinamide 500 Mg Tablet, 1,000 MG PO DAILY, (Reported) Patient Home Medication List Home Medication List Reviewed: Yes Review of Systems Review of Systems Constitutional: No fever EENTM: No blurred vision Respiratory: cough, short of breath Cardiovascular: No chest pain Gastrointestinal: No abdominal pain, No diarrhea, No nausea, No vomiting Genitourinary: No dysuria Musculoskeletal: No back pain Skin: No rash Psychiatric/Neurological: Denies Anxiety, Denies Depressed Hematologic/Lymphatic: No Symptoms Reported Immunological/Allergic: no symptoms reported All Other Systems Reviewed Negative Unless Noted: Yes Past Zdnhehx-Gupztv-Bahvzo Hx Patient Social History Tobacco Use?: No Substance use?: No Alcohol Use?: No Pt feels they are or have been: No Immunizations Up To Date Tetanus Booster (TDap): Unknown Seasonal Allergies Seasonal Allergies: No Past Medical History Surgery/Hospitalization HX: CA COLON AND RECTUM Surgeries: Yes Bowel Surgery Respiratory: No Cardiac: No Reproductive Disorders: No Sexually Transmitted Disease: No HIV/AIDS: No Gastrointestinal: No Musculoskeletal: Yes Arthritis Endocrine: No Loss of Vision: Denies Hearing Impairment: Hard of Hearing Cancer: Yes Rectal, Skin, Melanoma Did You Recieve Any Treatments: Yes What Type of Treatment Did You: Chemotherapy, Radiation, Surgical Intervention Adverse Reaction/Blood Tranf: No (N/A) Physical Exam Vital Signs - First Documented 03/03/21 13:12 Temp 35.8 Pulse 66 Resp 24 B/P (MAP) 158/65 (96) Pulse Ox 90 O2 Delivery Room Air O2 Flow Rate 4.00 Capillary Refill : Height: 5'8.00" Weight: 260lbs. 0.0oz. 117.615268zd; 38.00 BMI Method: General Appearance: WD/WN, mild distress HEENT: PERRL/EOMI, normal ENT inspection, pharynx normal Neck: non-tender, full range of motion, supple Respiratory: chest non-tender, no accessory muscle use (Mild tachypnea), crackles Cardiovascular: regular rate, rhythm, no edema, no murmur Gastrointestinal: normal bowel sounds, non tender; No distended, No guarding, No rebound Extremities: normal range of motion, non-tender, no calf tenderness Neurologic/Psychiatric: no motor/sensory deficits, alert, normal mood/affect Skin: normal color, warm/dry Lymphatic: no adenopathy Focused Exam Lactate Level 03/03/21 13:30: Lactic Acid Level 0.99 Lactic Acid Level Laboratory Tests Test 03/03/21 13:30 Lactic Acid Level 0.99 MMOL/L (0.50-2.00) Progress/Results/Core Measures Suspected Sepsis SIRS Temperature: Pulse: Respiratory Rate: Laboratory Tests 03/03/21 13:30: White Blood Count 20.7H Blood Pressure / Mean: 03/03/21 13:30: Lactic Acid Level 0.99 Laboratory Tests 03/03/21 13:30: Creatinine 1.12, INR Comment 1.0, Platelet Count 381, Total Bilirubin 0.5 Results/Orders Lab Results Laboratory Tests Test 03/03/21 13:30 Range/Units White Blood Count 20.7 H 4.3-11.0 10^3/uL Red Blood Count 4.30 4.30-5.52 10^6/uL Hemoglobin 14.0 13.3-17.7 g/dL Hematocrit 41 40-54 % Mean Corpuscular Volume 95 80-99 fL Mean Corpuscular Hemoglobin 33 25-34 pg Mean Corpuscular Hemoglobin Concent 34 32-36 g/dL Red Cell Distribution Width 12.9 10.0-14.5 % Platelet Count 381 130-400 10^3/uL Mean Platelet Volume 10.4 9.0-12.2 fL Immature Granulocyte % (Auto) 1 % Neutrophils (%) (Auto) 88 H 42-75 % Lymphocytes (%) (Auto) 4 L 12-44 % Monocytes (%) (Auto) 6 0-12 % Eosinophils (%) (Auto) 0 0-10 % Basophils (%) (Auto) 0 0-10 % Neutrophils # (Auto) 18.3 H 1.8-7.8 10^3/uL Lymphocytes # (Auto) 0.9 L 1.0-4.0 10^3/uL Monocytes # (Auto) 1.2 H 0.0-1.0 10^3/uL Eosinophils # (Auto) 0.0 0.0-0.3 10^3/uL Basophils # (Auto) 0.0 0.0-0.1 10^3/uL Immature Granulocyte # (Auto) 0.3 H 0.0-0.1 10^3/uL Neutrophils % (Manual) 91 % Lymphocytes % (Manual) 4 % Monocytes % (Manual) 2 % Eosinophils % (Manual) 0 % Basophils % (Manual) 0 % Band Neutrophils 3 % Blood Morphology Comment NORMAL Prothrombin Time 14.0 12.2-14.7 SEC INR Comment 1.0 0.8-1.4 Activated Partial Thromboplast Time 31 24-35 SEC Fibrinogen 674 H 221-496 MG/DL Sodium Level 142 135-145 MMOL/L Potassium Level 4.3 3.6-5.0 MMOL/L Chloride Level 108 H 98-107 MMOL/L Carbon Dioxide Level 22 21-32 MMOL/L Anion Gap 12 5-14 MMOL/L Blood Urea Nitrogen 30 H 7-18 MG/DL Creatinine 1.12 0.60-1.30 MG/DL Estimat Glomerular Filtration Rate 64 BUN/Creatinine Ratio 27 Glucose Level 107 H 70-105 MG/DL Lactic Acid Level 0.99 0.50-2.00 MMOL/L Calcium Level 8.3 L 8.5-10.1 MG/DL Corrected Calcium 8.8 8.5-10.1 MG/DL Total Bilirubin 0.5 0.1-1.0 MG/DL Aspartate Amino Transf (AST/SGOT) 36 H 5-34 U/L Alanine Aminotransferase (ALT/SGPT) 22 0-55 U/L Alkaline Phosphatase 49 40-136 U/L Lactate Dehydrogenase 657 H 125-220 U/L Troponin I < 0.028 <0.028 NG/ML C-Reactive Protein High Sensitivity 3.08 H 0.00-0.50 MG/DL Total Protein 6.5 6.4-8.2 GM/DL Albumin 3.4 3.2-4.5 GM/DL Procalcitonin 0.06 <0.10 NG/ML My Orders Orders - GERMAIN HDEZ MD Vital Signs: Every 4 Hours (Or (03/03/21 13:23) Monitor-Rhythm Ecg Trace Only (03/03/21 13:23) Ed Iv/Invasive Line Start (03/03/21 13:23) Cbc With Automated Diff (03/03/21 13:23) Comprehensive Metabolic Panel (03/03/21 13:23) Ferritin (03/03/21 13:23) LDH (03/03/21 13:23) Hs C Reactive Protein (03/03/21 13:23) Troponin I (03/03/21 13:23) Lactic Acid Analyzer (03/03/21 13:23) Protime With Inr (03/03/21 13:23) Partial Thromboplastin Time (03/03/21 13:23) Fibrinogen (03/03/21 13:23) Ekg Tracing (03/03/21 13:23) Chest 1 View, Ap/Pa Only (03/03/21 13:23) Acetaminophen Tablet/Caplet (Tylenol T (03/03/21 13:30) Covid-19 External Lab Results (03/03/21 13:23) Isolation Central Supply Req (03/03/21 13:23) Procalcitonin (Pct) (03/03/21 13:23) Manual Differential (03/03/21 13:30) Heparin (Central Iv Flush) (Heparin (Maik (03/03/21 14:30) Medications Given in ED Current Medications Medications Dose Ordered Sig/Martina Route Start Time Stop Time Status Last Admin Dose Admin Acetaminophen 650 mg ONCE ONCE PO 03/03/21 13:30 03/03/21 13:31 DC 03/03/21 13:40 650 MG Vital Signs/I&O 03/03/21 03/03/21 03/03/21 13:12 13:12 13:40 Temp 35.8 35.8 Pulse 66 Resp 24 B/P (MAP) 158/65 (96) Pulse Ox 90 O2 Delivery Room Air Nasal Cannula O2 Flow Rate 4.00 Capillary Refill : Progress Note : Progress Note 76-year-old male Covid positive coming in due to worsening shortness of breath and hypoxia at home. On room air the patient was 83%. He required 4 L oxygen to get to 91% at rest. IV placed and labs ordered per our current Covid protocol. He has already received Decadron today. Chest x-ray my interpretation with patchy multilobar infiltrates consistent with Covid. Labs with elevated LDH, low lymphocyte count fitting Covid as well, low procalcitonin and therefore we will not start antibiotics at this time. I will call and discuss his case with Dr. Mejia who is taking call for [facility] this week. She agreed to admit the patient as an inpatient for further evaluation and management. I have written out bridge orders as well as Covid orders as appropriate. The only thing pending at this time is a D-dimer which will be followed up as an inpatient. ECG Initial ECG Impression Date: Mar 03, 2021 Initial ECG Impression Time: 13:34 Initial ECG Rate: 62 Initial ECG Rhythm: Normal Sinus Comment Normal sinus rhythm, narrow QRS, normal axis, no significant ST changes or T wave abnormalities Departure Impression Primary Impression: COVID-19 Additional Impression: Respiratory failure Qualified Codes: J96.01 - Acute respiratory failure with hypoxia Disposition: ADMITTED INPATIENT Condition: Stable Admissions Decision to Admit Reason: Admit from ER (General) Decision to Admit/Date: Mar 03, 2021 Time/Decision to Admit Time: 14:16 Departure-Patient Inst. Referrals: [facility] (PCP) Primary Care Physician ALICE ORDOÑEZ (Family) Primary Care Physician GERMAIN HDEZ MD Mar 03, 2021 13:29
[2021-03-03] MEDS ORDERED: ACETAMINOPHEN 325 MG TABLET PO ONE (13:30)
[2021-03-03 13:38] LABS: BASOPHILS % (AUTO) 0 % (0-10); EOSINOPHILS % (AUTO) 0 % (0-10); HEMATOCRIT 41 % (40-54); LYMPHOCYTES # (AUTO) 0.9 10^3/uL (1.0-4.0); LYMPHOCYTES % (AUTO) 4 % (12-44); MEAN CORPUSCULAR HEMOGLOBIN 33 pg (25-34); MEAN CORPUSCULAR HGB CONC 34 g/dL (32-36); MEAN CORPUSCULAR VOLUME 95 fL (80-99); MEAN PLATELET VOLUME 10.4 fL (9.0-12.2); MONOCYTES # (AUTO) 1.2 10^3/uL (0.0-1.0); MONOCYTES % (AUTO) 6 % (0-12); NEUTROPHILS # (AUTO) 18.3 10^3/uL (1.8-7.8); NEUTROPHILS % (AUTO) 88 % (42-75); PLATELET COUNT 381 10^3/uL (130-400); WHITE BLOOD COUNT 20.7 10^3/uL (4.3-11.0)
[2021-03-03 13:52] LABS: ALBUMIN 3.4 GM/DL (3.2-4.5); CHLORIDE 108 MMOL/L (98-107); POTASSIUM 4.3 MMOL/L (3.6-5.0); SODIUM 142 MMOL/L (135-145)
[2021-03-03 13:53] LABS: CALCIUM 8.3 MG/DL (8.5-10.1)
[2021-03-03 13:54] LABS: GLUCOSE 107 MG/DL (70-105); TOTAL PROTEIN 6.5 GM/DL (6.4-8.2)
[2021-03-03 13:55] LABS: BAND NEUTROPHILS 3 %; BASOPHILS % (MANUAL) 0 %; CARBON DIOXIDE 22 MMOL/L (21-32); EOSINOPHILS % (MANUAL) 0 %; LYMPHOCYTES % (MANUAL) 4 %; MONOCYTES % (MANUAL) 2 %; NEUTROPHILS % (MANUAL) 91 %
[2021-03-03 13:56] LABS: BILIRUBIN,TOTAL 0.5 MG/DL (0.1-1.0); RBC MORPH NORMAL
[2021-03-03 13:58] LABS: ALKALINE PHOSPHATASE 49 U/L (40-136); CREATININE SERUM 1.12 MG/DL (0.60-1.30); GFR ESTIMATED 64
[2021-03-03 13:59] LABS: BUN/CREATININE RATIO 27
[2021-03-03 14:01] LABS: ALANINE AMINOTRANSFERASE 22 U/L (0-55)
--- NOTE | 2021-03-03 14:23 | Diagnostic Imaging Report ---
COVID positive. EXAMINATION: Chest 03/03/2021 COMPARISON: 03/01/2021 FINDINGS: Diffuse scattered bilateral infiltrates seen throughout both lungs consistent with infiltrates increased from previous imaging. No effusions or pneumothorax. Heart is stable. Pulmonary vasculature congested. Right-sided central line stable. IMPRESSION: 1. Increasing bilateral infiltrates. Dictated by: Dictated on workstation # [id number]
[2021-03-03] MEDS ORDERED: HEParin (CENTRAL IV FLUSH) 500 UNIT/5 ML SYR IV ONE (14:30)
[2021-03-03 16:00] VITALS: BP 173/78
[2021-03-03 16:07] VITALS: BP 158/65
[2021-03-03] MEDS ORDERED: RT-ALBUTEROL HFA 8.5 GM INHALER IH PRN (16:15)
[2021-03-03] MEDS ORDERED: ACETAMINOPHEN 650 MG SUPP (TYLENOL) PR PRN (16:30)
[2021-03-03] MEDS ORDERED: guaiFENesin SYRUP 100 MG/5 ML 10 ML (ROBITUSSIN SF) PO PRN (16:30)
[2021-03-03] MEDS ORDERED: CATHETER FLUSH 10 ML SYR IV PRN (16:30)
[2021-03-03] MEDS ORDERED: ACETAMINOPHEN 325 MG TABLET PO PRN (16:30)
[2021-03-03] MEDS ORDERED: ONDANSETRON 4 MG/2 ML (SDV) Z0FRAN IV PRN (16:30)
[2021-03-03] MEDS ORDERED: ONDANSETRON 4 MG/5 ML ORAL SOLN (ZOFRAN) 5 ML PO PRN (16:30)
[2021-03-03] MEDS: ENOXAPARIN 40 MG/0.4 ML (LOVENOX) SYR SC SCH (17:18)
[2021-03-03] MEDS: CATHETER FLUSH 10 ML SYR IV SCH (19:46)
[2021-03-03 19:59] VITALS: BP 173/78
[2021-03-03] MEDS ORDERED: DOCUSATE SODIUM 100 MG (COLACE) CAP PO PRN (21:15)
[2021-03-03] MEDS ORDERED: CALCIUM CARBONATE 500 MG (TUMS) TAB.CHEW PO PRN (21:15)
[2021-03-03] MEDS ORDERED: MELATONIN 3 MG TABLET PO PRN (21:15)
[2021-03-03] MEDS ORDERED: diphenhydrAMINE 25 MG TAB (BENADRYL) PO PRN (21:15)
[2021-03-03] MEDS ORDERED: LORazepam INJ 2 MG/ML (ATIVAN) VIAL IVP ONE (22:00)
[2021-03-03] MEDS: RT-ALBUTEROL HFA 8.5 GM INHALER IH SCH (22:43)
[2021-03-04] VITALS (7 sets, daily range): BP systolic 136–175; BP diastolic 65–76
[2021-03-04] MEDS: RT-ALBUTEROL HFA 8.5 GM INHALER IH SCH ×6 (02:15→21:27)
[2021-03-04] MEDS: HYDROcodone/APAP 5 MG/325 MG (LORTAB) TAB PO PRN ×5 (02:28→23:53)
[2021-03-04] MEDS: CATHETER FLUSH 10 ML SYR IV SCH ×3 (05:20→22:22)
[2021-03-04 05:36] LABS: BASOPHILS % (AUTO) 0 % (0-10); EOSINOPHILS % (AUTO) 0 % (0-10); HEMATOCRIT 39 % (40-54); HEMOGLOBIN 13.1 g/dL (13.3-17.7); LYMPHOCYTES # (AUTO) 0.5 10^3/uL (1.0-4.0); LYMPHOCYTES % (AUTO) 3 % (12-44); MEAN CORPUSCULAR HEMOGLOBIN 32 pg (25-34); MEAN CORPUSCULAR HGB CONC 34 g/dL (32-36); MEAN CORPUSCULAR VOLUME 96 fL (80-99); MEAN PLATELET VOLUME 10.3 fL (9.0-12.2); MONOCYTES % (AUTO) 5 % (0-12); NEUTROPHILS # (AUTO) 17.5 10^3/uL (1.8-7.8); NEUTROPHILS % (AUTO) 90 % (42-75); PLATELET COUNT 396 10^3/uL (130-400); WHITE BLOOD COUNT 19.5 10^3/uL (4.3-11.0)
[2021-03-04 05:51] LABS: ALBUMIN 3.1 GM/DL (3.2-4.5); POTASSIUM 3.9 MMOL/L (3.6-5.0)
[2021-03-04 05:53] LABS: CALCIUM 7.9 MG/DL (8.5-10.1)
[2021-03-04 05:56] LABS: BILIRUBIN,TOTAL 0.3 MG/DL (0.1-1.0)
[2021-03-04 05:57] LABS: CREATININE SERUM 1.13 MG/DL (0.60-1.30)
--- NOTE | 2021-03-04 07:41 | Diagnostic Imaging Report ---
Indication: Respiratory distress. Compared: 03/03 Findings: There is worsened and severe 5 lobe airspace disease, right IJ at the cavoatrial junction in good alignment, stable. No pneumothorax or obvious pleural fluid. Impression: Progressive severe 5 lobe airspace disease. Dictated by: Dictated on workstation # [id number]
[2021-03-04] MEDS: dexAMETHasone 6 MG TAB (DECADRON) PO SCH (08:13)
[2021-03-04] MEDS: SENNA W/DOCUSATE (SENOKOT S) TABLET PO SCH ×2 (10:34→19:47)
[2021-03-04] MEDS ORDERED: KETO120S13 TOP (11:20)
[2021-03-04] MEDS ORDERED: OMEG-160 PO (11:20)
[2021-03-04] MEDS ORDERED: DEXA6TAB PO (11:20)
[2021-03-04] MEDS ORDERED: NAPR220T66 PO (11:20)
--- NOTE | 2021-03-04 11:59 | History & Physical-Hospitalist ---
History of Present Illness HPI/Chief Complaint CC: Covid-19 pneumonia HPI: This is a 76yoWM clinic pt of [facility] who presented SOB following recent diagnosis of Covid-19 on 02/20/2021. He has progressed quickly, require vapotherm now, meeting criteria for Actemra. CXR appears to have severe infiltrates in the five lobes. Currently we will restart all of his home meds and monitor closely. He is high risk for decompensation. Patient has a colostomy and has had good output. Source: patient, RN/MD Exam Limitations: clinical condition Date Seen 03/04/21 Time Seen by a Provider: 10:30 Attending Physician Linda Mejia DO PCP libra,[place] [facility] Referring Physician Date of Admission Mar 03, 2021 at 14:16 Home Medications & Allergies Home Medications Reviewed patient Home Medication Reconciliation performed by pharmacy medication reconciliations care technician and/or nursing. Patients Allergies have been reviewed. Allergies Allergies Coded Allergies No Known Drug Allergies (Cyqkmgpjni30/19/18) Past Pdmdfho-Genthi-Nbzxwc Hx Patient Social History Marrital Status: single Employed/Student: retired Tobacco Use?: No Smoking Status: Unknown if Ever Smoked Substance use?: No Alcohol Use?: No Pt feels they are or have been: No Immunizations Up To Date Date of Influenza Vaccine: May 13, 2018 Date of Pneumonia Vaccine: May 04, 2014 Seasonal Allergies Seasonal Allergies: No Current Status Advance Directives: Yes Advance Directive Location: Copy from prev record Communicates: Verbally Primary Language: Martiniquais Preferred Spoken Language: Martiniquais Is interpretation needed?: No Sensory deficits: Vision impairment, Hearing impairment Implanted or Applied Medical D: Port-a-cath Past Medical History Surgeries: Bowel Surgery Sexually Transmitted Disease: No HIV/AIDS: No Arthritis Loss of Vision: Denies Hearing Impairment: Hard of Hearing Rectal, Skin, Melanoma Did You Recieve Any Treatments: Yes What Type of Treatment Did You: Chemotherapy, Radiation, Surgical Intervention Adverse Reaction/Blood Tranf: No (N/A) Review of Systems Constitutional: see HPI Respiratory: dyspnea on exertion Physical Exam Physical Exam Vital Signs Vital Signs - First Documented 03/03/21 03/03/21 13:12 16:07 Temp 35.8 Pulse 66 Resp 24 B/P (MAP) 158/65 (96) Pulse Ox 90 O2 Delivery Room Air O2 Flow Rate 4.00 FiO2 36 Capillary Refill : Less Than 3 Seconds Height, Weight, BMI Height: 5'8.00" Weight: 260lbs. 0.0oz. 117.533560ig; 38.87 BMI Method: General Appearance: Anxious, Chronically ill, Mild Distress Eyes: Right Eye Normal Inspection, Right Eye PERRL HEENT: PERRL/EOMI, Normal ENT Inspection, Pharynx Normal, Moist Mucous Membranes Neck: Full Range of Motion, Normal Inspection, Non Tender Respiratory: Chest Non Tender, No Accessory Muscle Use, No Respiratory Distres s, Decreased Breath Sounds, Wheezing Cardiovascular: Regular Rate, Rhythm, No Edema, No Gallop, No JVD, No Murmur, Normal Peripheral Pulses Gastrointestinal: Normal Bowel Sounds, No Organomegaly, No Pulsatile Mass, Non Tender, Soft Back: Normal Inspection, No CVA Tenderness, No Vertebral Tenderness Extremity: Normal Capillary Refill, Normal Inspection, Normal Range of Motion, Non Tender, No Calf Tenderness, No Pedal Edema Neurologic/Psychiatric: Alert, Oriented x3, No Motor/Sensory Deficits, Normal Mood/Affect Skin: Normal Color, Warm/Dry Lymphatic: No Adenopathy Results Results/Procedures Labs Laboratory Tests 03/03/21 13:30 03/04/21 05:25 Patient resulted labs reviewed. Assessment/Plan Admission Diagnosis Assessment: Severe COVID-19 pneumonia with hypoxia High risk for decompensation with ventilation status post Actemra on 03/04/2021 Colostomy status Elevated blood pressure Plan: Actemra Monitor chest x-ray Vapotherm and BiPAP High risk for ventilation requirement Admission Status: Inpatient Order (span 2 midnights) Reason for Inpatient Admission: COVID-19 Diagnosis/Problems Diagnosis/Problems (1) COVID-19 Status: Acute (2) Respiratory failure Status: Acute Qualifiers: Chronicity: acute Respiratory failure complication: hypoxia Qualified Codes: J96.01 - Acute respiratory failure with hypoxia LINDA MEJIA DO Mar 04, 2021 11:59
[2021-03-04] MEDS ORDERED: [UNRECOGNIZED DRUG - REMARK] IV NR (13:30)
[2021-03-04] MEDS: ENOXAPARIN 40 MG/0.4 ML (LOVENOX) SYR SC SCH (18:05)
[2021-03-05] VITALS (7 sets, daily range): BP systolic 146–192; BP diastolic 69–78
[2021-03-05] MEDS: RT-ALBUTEROL HFA 8.5 GM INHALER IH SCH ×6 (02:16→23:03)
[2021-03-05] MEDS: cloNIDine 0.1 MG (CATAPRES) TAB PO PRN ×2 (05:11→23:59)
[2021-03-05] MEDS: CATHETER FLUSH 10 ML SYR IV SCH ×3 (05:13→22:01)
[2021-03-05 05:41] LABS: BASOPHILS # (AUTO) 0.1 10^3/uL (0.0-0.1); BASOPHILS % (AUTO) 0 % (0-10); EOSINOPHILS % (AUTO) 0 % (0-10); HEMATOCRIT 42 % (40-54); LYMPHOCYTES # (AUTO) 0.8 10^3/uL (1.0-4.0); LYMPHOCYTES % (AUTO) 4 % (12-44); MEAN CORPUSCULAR HEMOGLOBIN 32 pg (25-34); MEAN CORPUSCULAR HGB CONC 33 g/dL (32-36); MEAN CORPUSCULAR VOLUME 97 fL (80-99); MEAN PLATELET VOLUME 10.1 fL (9.0-12.2); MONOCYTES # (AUTO) 0.6 10^3/uL (0.0-1.0); MONOCYTES % (AUTO) 3 % (0-12); NEUTROPHILS # (AUTO) 17.8 10^3/uL (1.8-7.8); NEUTROPHILS % (AUTO) 87 % (42-75); PLATELET COUNT 442 10^3/uL (130-400); WHITE BLOOD COUNT 20.3 10^3/uL (4.3-11.0)
[2021-03-05] MEDS ORDERED: FUROSEMIDE 40 MG/4 ML INJ (LASIX) IVP ONE (05:45)
[2021-03-05 05:59] LABS: ALBUMIN 3.1 GM/DL (3.2-4.5); BILIRUBIN,TOTAL 0.4 MG/DL (0.1-1.0); CALCIUM 8.3 MG/DL (8.5-10.1); CREATININE SERUM 0.93 MG/DL (0.60-1.30); POTASSIUM 4.3 MMOL/L (3.6-5.0); TOTAL PROTEIN 6.1 GM/DL (6.4-8.2)
[2021-03-05 07:45] LABS: ABG BASE EXCESS 1.7 MMOL/L (-2.5-2.5); ABG OXYGEN SATURATION 92 % (94-100); ABG PCO2 40 MMHG (35-45); ABG PH 7.42 (7.37-7.43); ABG PO2 61 MMHG (79-93); ABG TCO2 27.2 MMOL/L (21.0-31.0); INSPIRED O2 90%; VENTILATOR NO
--- NOTE | 2021-03-05 08:47 | Diagnostic Imaging Report ---
EXAMINATION: Chest 1 view HISTORY: Pneumonia follow-up COMPARISON: 03/04/2021 FINDINGS: Heart size and pulmonary vasculature are stable. Stable diffuse patchy interstitial and airspace opacities throughout both lungs. Medical support lines and tubes are unchanged. No pleural effusion or pneumothorax. Degenerative changes of the thoracic spine. Osseous structures are otherwise intact. IMPRESSION: 1. Stable diffuse patchy interstitial and airspace opacities throughout both lungs. Dictated by: Dictated on workstation # [id number]
[2021-03-05] MEDS: SENNA W/DOCUSATE (SENOKOT S) TABLET PO SCH ×2 (09:40→19:35)
[2021-03-05] MEDS: dexAMETHasone 6 MG TAB (DECADRON) PO SCH (09:40)
[2021-03-05] MEDS: ASPIRIN 81 MG CHEW (CHILDREN'S ASA) PO SCH (09:40)
[2021-03-05] MEDS: HYDROcodone/APAP 5 MG/325 MG (LORTAB) TAB PO PRN ×3 (11:04→20:22)
--- NOTE | 2021-03-05 12:22 | Progress Note - Hospitalist ---
Subjective HPI/CC On Admission Date Seen by Provider: Mar 05, 2021 Time Seen by Provider: 12:30 CC: Covid-19 pneumonia HPI: This is a 76yoWM clinic pt of [facility] who presented SOB following recent diagnosis of Covid-19 on 02/20/2021. He has progressed quickly, require vapotherm now, meeting criteria for Actemra. CXR appears to have severe infiltrates in the five lobes. Currently we will restart all of his home meds and monitor closely. He is high risk for decompensation. Patient has a colostomy and has had good output. Subjective/Events-last exam Patient a bit better Required BiPAP last night which helped him and he really liked it Maintained on Vapotherm Sitting on side of the bed and he wants to sit in the chair Status post Actemra yesterday and I feel like that has helped him tremendously Patient feels much better Elevated blood pressure responded to clonidine and I gave him 1 dose of Lasix 40 mg Patient eating and drinking Review of Systems General: Fatigue Pulmonary: Dyspnea Focused Exam Lactate Level 03/03/21 13:30: Lactic Acid Level 0.99 Objective Exam Vital Signs Vital Signs Date Time Temp Pulse Resp B/P (MAP) Pulse Ox O2 Delivery O2 Flow Rate FiO2 03/05/21 11:38 36.5 76 20 146/69 (94) 92 Vapotherm 40.00 100.00 03/05/21 10:04 100 Capillary Refill : Less Than 3 Seconds General Appearance: No Apparent Distress, WD/WN, Anxious, Chronically ill Respiratory: No Accessory Muscle Use, No Respiratory Distress, Decreased Breath Sounds Cardiovascular: Regular Rate, Rhythm Neurologic/Psychiatric: Alert, Oriented x3 Results/Procedures Lab Laboratory Tests 03/05/21 05:05 Patient resulted labs reviewed. Assessment/Plan Assessment and Plan Assess & Plan/Chief Complaint Assessment: Severe COVID-19 pneumonia with hypoxia no evidence of bacterial component due to procalcitonin negative High risk for decompensation with ventilation status post Actemra on 03/04/2021 Colostomy status Elevated blood pressure Volume overload Plan: Actemra Monitor chest x-ray Vapotherm and BiPAP High risk for ventilation requirement 03/05/2021: Lasix 40 mg IV push Monitor blood pressure High risk for intubation No antibiotics required Diagnosis/Problems Diagnosis/Problems (1) COVID-19 Status: Acute (2) Respiratory failure Status: Acute Qualifiers: Chronicity: acute Respiratory failure complication: hypoxia Qualified Codes: J96.01 - Acute respiratory failure with hypoxia JOSE ANTONIO VELASQUEZ DO Mar 05, 2021 12:22
[2021-03-05] MEDS: ENOXAPARIN 40 MG/0.4 ML (LOVENOX) SYR SC SCH (18:03)
[2021-03-06] MEDS: RT-ALBUTEROL HFA 8.5 GM INHALER IH SCH ×6 (02:42→21:40)
[2021-03-06 03:56] VITALS: BP 172/70
[2021-03-06] MEDS: cloNIDine 0.1 MG (CATAPRES) TAB PO PRN ×2 (04:13→09:06)
[2021-03-06] MEDS: CATHETER FLUSH 10 ML SYR IV SCH ×3 (05:07→22:13)
[2021-03-06] MEDS: HYDROcodone/APAP 5 MG/325 MG (LORTAB) TAB PO PRN (05:16)
[2021-03-06 05:52] LABS: BASOPHILS # (AUTO) 0.1 10^3/uL (0.0-0.1); BASOPHILS % (AUTO) 1 % (0-10); EOSINOPHILS % (AUTO) 0 % (0-10); HEMATOCRIT 42 % (40-54); HEMOGLOBIN 14.1 g/dL (13.3-17.7); LYMPHOCYTES # (AUTO) 0.9 10^3/uL (1.0-4.0); LYMPHOCYTES % (AUTO) 4 % (12-44); MEAN CORPUSCULAR HEMOGLOBIN 33 pg (25-34); MEAN CORPUSCULAR HGB CONC 34 g/dL (32-36); MEAN CORPUSCULAR VOLUME 97 fL (80-99); MEAN PLATELET VOLUME 9.9 fL (9.0-12.2); MONOCYTES # (AUTO) 0.5 10^3/uL (0.0-1.0); MONOCYTES % (AUTO) 2 % (0-12); NEUTROPHILS # (AUTO) 19.1 10^3/uL (1.8-7.8); NEUTROPHILS % (AUTO) 86 % (42-75); PLATELET COUNT 279 10^3/uL (130-400); WHITE BLOOD COUNT 22.2 10^3/uL (4.3-11.0)
[2021-03-06 06:12] LABS: ALBUMIN 3.2 GM/DL (3.2-4.5); POTASSIUM 4.5 MMOL/L (3.6-5.0)
[2021-03-06 06:13] LABS: CALCIUM 8.1 MG/DL (8.5-10.1)
[2021-03-06 06:14] LABS: TOTAL PROTEIN 5.9 GM/DL (6.4-8.2)
[2021-03-06 06:16] LABS: BILIRUBIN,TOTAL 0.6 MG/DL (0.1-1.0)
--- NOTE | 2021-03-06 06:29 | Progress Note - Hospitalist ---
Subjective HPI/CC On Admission Date Seen by Provider: Mar 06, 2021 Time Seen by Provider: 11:00 CC: Covid-19 pneumonia HPI: This is a 76yoWM clinic pt of [facility] who presented SOB following recent diagnosis of Covid-19 on 02/20/2021. He has progressed quickly, require vapotherm now, meeting criteria for Actemra. CXR appears to have severe infiltrates in the five lobes. Currently we will restart all of his home meds and monitor closely. He is high risk for decompensation. Patient has a colostomy and has had good output. Subjective/Events-last exam Patient doing a little bit better Vapotherm maxed out but weaning down Wore BiPAP all night Feels better Eating and drinking Colostomy output good Review of Systems General: Fatigue Pulmonary: Dyspnea Focused Exam Lactate Level Objective Exam Vital Signs Vital Signs Date Time Temp Pulse Resp B/P (MAP) Pulse Ox O2 Delivery O2 Flow Rate FiO2 03/06/21 19:32 36.1 84 20 154/72 (99) 90 Vapotherm 35.00 95.00 03/06/21 18:47 85 Capillary Refill : Less Than 3 Seconds General Appearance: No Apparent Distress, WD/WN, Anxious, Chronically ill Respiratory: Lungs Clear, Decreased Breath Sounds Cardiovascular: Regular Rate, Rhythm Neurologic/Psychiatric: Alert, Oriented x3 Results/Procedures Lab Laboratory Tests 03/06/21 05:10 Patient resulted labs reviewed. Assessment/Plan Assessment and Plan Assess & Plan/Chief Complaint Assessment: Severe COVID-19 pneumonia with hypoxia no evidence of bacterial component due to procalcitonin negative High risk for decompensation with ventilation status post Actemra on 03/04/2021 Colostomy status Elevated blood pressure Volume overload Plan: Actemra Monitor chest x-ray Vapotherm and BiPAP High risk for ventilation requirement 03/05/2021: Lasix 40 mg IV push Monitor blood pressure High risk for intubation No antibiotics required 03/06/2021: Aggressive care High risk for intubation Diagnosis/Problems Diagnosis/Problems (1) COVID-19 Status: Acute (2) Respiratory failure Status: Acute Qualifiers: Chronicity: acute Respiratory failure complication: hypoxia Qualified Codes: J96.01 - Acute respiratory failure with hypoxia JOSE ANTONIO VELASQUEZ DO Mar 06, 2021 06:28
--- NOTE | 2021-03-06 08:12 | Diagnostic Imaging Report ---
Clinical indication: Patient with pneumonia and Covid positive. Exam: Portable chest x-ray upright view. Comparisons: Chest x-ray dated 03/05/2021. Findings: There are diffuse bilateral lung infiltrates seen with the right side affected more than left side. There is improved aeration involving the left mid and lower lung field region and grossly stable on the right side. There is no pleural effusion or pneumothorax. Pulmonary vasculature is obscured. Cardiac silhouette is within normal limits. There are degenerative spurs involving the spine. Right central line again seen in stable position. IMPRESSION: 1.: Again seen diffuse bilateral lung infiltrates which has slightly decreased on the left side. 2: Again noted cardiomegaly. Dictated by: Dictated on workstation # [id number]
[2021-03-06 08:38] VITALS: BP 177/76
[2021-03-06] MEDS: SENNA W/DOCUSATE (SENOKOT S) TABLET PO SCH ×2 (09:05→19:31)
[2021-03-06] MEDS: ASPIRIN 81 MG CHEW (CHILDREN'S ASA) PO SCH (09:05)
[2021-03-06] MEDS: dexAMETHasone 6 MG TAB (DECADRON) PO SCH (09:05)
[2021-03-06 12:00] VITALS: BP 176/75
[2021-03-06 16:00] VITALS: BP 164/74
[2021-03-06] MEDS: ENOXAPARIN 40 MG/0.4 ML (LOVENOX) SYR SC SCH (17:26)
[2021-03-06 19:32] VITALS: BP 154/72
[2021-03-06 23:58] VITALS: BP 162/78
[2021-03-07] VITALS (9 sets, daily range): BP systolic 147–226; BP diastolic 69–115
[2021-03-07] MEDS: HYDROcodone/APAP 5 MG/325 MG (LORTAB) TAB PO PRN ×2 (00:05→05:13)
[2021-03-07] MEDS: RT-ALBUTEROL HFA 8.5 GM INHALER IH SCH ×6 (02:31→21:37)
[2021-03-07] MEDS: CATHETER FLUSH 10 ML SYR IV SCH ×3 (05:14→20:44)
[2021-03-07 06:04] LABS: ALBUMIN 3.2 GM/DL (3.2-4.5)
[2021-03-07 06:05] LABS: POTASSIUM 4.4 MMOL/L (3.6-5.0)
[2021-03-07 06:06] LABS: CALCIUM 8.2 MG/DL (8.5-10.1)
[2021-03-07 06:09] LABS: BILIRUBIN,TOTAL 0.6 MG/DL (0.1-1.0)
[2021-03-07 06:11] LABS: CREATININE SERUM 0.96 MG/DL (0.60-1.30)
[2021-03-07 06:57] LABS: BASOPHILS # (AUTO) 0.2 10^3/uL (0.0-0.1); BASOPHILS % (AUTO) 1 % (0-10); EOSINOPHILS # (AUTO) 0.1 10^3/uL (0.0-0.3); EOSINOPHILS % (AUTO) 1 % (0-10); HEMATOCRIT 44 % (40-54); HEMOGLOBIN 14.7 g/dL (13.3-17.7); LYMPHOCYTES # (AUTO) 0.9 10^3/uL (1.0-4.0); LYMPHOCYTES % (AUTO) 5 % (12-44); MEAN CORPUSCULAR HEMOGLOBIN 33 pg (25-34); MEAN CORPUSCULAR HGB CONC 34 g/dL (32-36); MEAN CORPUSCULAR VOLUME 97 fL (80-99); MEAN PLATELET VOLUME 9.8 fL (9.0-12.2); MONOCYTES # (AUTO) 0.6 10^3/uL (0.0-1.0); MONOCYTES % (AUTO) 3 % (0-12); NEUTROPHILS # (AUTO) 16.5 10^3/uL (1.8-7.8); NEUTROPHILS % (AUTO) 83 % (42-75); PLATELET COUNT 183 10^3/uL (130-400); WHITE BLOOD COUNT 19.9 10^3/uL (4.3-11.0)
--- NOTE | 2021-03-07 07:48 | Diagnostic Imaging Report ---
INDICATION: Pneumonia. Comparison made with prior examination from 03/06/2021. FINDINGS: There is cardiomegaly. There is bilateral airspace disease. Some underlying venous congestion cannot be excluded. There is no pleural effusion or pneumothorax. The mediastinum is unremarkable. [id number] catheter overlies right hemithorax. IMPRESSION: Diffuse bilateral airspace disease. Some underlying central pulmonary venous congestion cannot be excluded Dictated by: Dictated on workstation # [id number]
[2021-03-07 08:32] LABS: ABG BASE EXCESS 2.5 MMOL/L (-2.5-2.5); ABG OXYGEN SATURATION 90 % (94-100); ABG PCO2 40 MMHG (35-45); ABG PH 7.44 (7.37-7.43); ABG PO2 56 MMHG (79-93); ABG TCO2 27.8 MMOL/L (21.0-31.0); ALLENS TEST POSITIVE; INSPIRED O2 65; VENTILATOR NO
[2021-03-07 08:33] LABS: PATIENT TEMP 36.2
[2021-03-07] MEDS: dexAMETHasone 6 MG TAB (DECADRON) PO SCH (09:23)
[2021-03-07] MEDS: SENNA W/DOCUSATE (SENOKOT S) TABLET PO SCH ×2 (09:23→20:43)
[2021-03-07] MEDS: ASPIRIN 81 MG CHEW (CHILDREN'S ASA) PO SCH (09:23)
[2021-03-07] MEDS: ENOXAPARIN 40 MG/0.4 ML (LOVENOX) SYR SC SCH (17:02)
[2021-03-07] MEDS ORDERED: LIDOCAINE UROJET 2% GEL 10 ML PKG ONE (18:21)
--- NOTE | 2021-03-07 20:28 | Progress Note ---
SOPHIE BEAULIEU 03/07/212027: Subjective Subjective/Events-last exam This is a 76 year old male admitted due to Respiratory Failure due to COVID-19. Patients condition has continued to deteriorate. Patient is alert and cognitive but short of breath with an O2 stat in the low 90's dropping into the 80's when is moving around or urinating. We are concerned about the patient and monitoring him to see if he needs to be moved to the ICU for increased respiratory support. Review of Systems General: Fatigue Pulmonary: Dyspnea, Cough Cardiovascular: No: Chest Pain, Palpitations Gastrointestinal: No: Nausea, Vomiting, Abdominal Pain Genitourinary: No Dysuria Objective Exam Last Set of Vital Signs Vital Signs Date Time Temp Pulse Resp B/P (MAP) Pulse Ox O2 Delivery O2 Flow Rate FiO2 03/07/21 18:46 92 35.00 100 03/07/21 15:58 36.9 95 22 147/78 (101) Vapotherm Capillary Refill : Less Than 3 Seconds I&O Intake and Output 03/07/21 00:00 Intake Total 1270 ml Output Total 750 ml Balance 520 ml Intake Oral 1270 ml Output Urine Total 750 ml General: Alert, Oriented X3, Cooperative HEENT: Atraumatic Lungs: Other (wheezing and crackles in each lobe) Heart: Regular Rate, No Murmurs Abdomen: Normal Bowel Sounds Skin: No Breakdown Neuro: Normal Speech, Sensation Intact Results/Procedures Lab Laboratory Tests 03/07/21 05:15: Sodium Level 141, Potassium Level 4.4, Chloride Level 106, Carbon Dioxide Level 26, Anion Gap 9, Blood Urea Nitrogen 30H, Creatinine 0.96, Estimat Glomerular Filtration Rate 77, BUN/Creatinine Ratio 31, Glucose Level 75, Calcium Level 8.2L, Corrected Calcium 8.8, Total Bilirubin 0.6, Aspartate Amino Transf (AST/SGOT) 52H, Alanine Aminotransferase (ALT/SGPT) 38, Alkaline Phosphatase 78, Total Protein 6.0L, Albumin 3.2 03/07/21 06:50: White Blood Count 19.9H, Red Blood Count 4.52, Hemoglobin 14.7, Hematocrit 44, Mean Corpuscular Volume 97, Mean Corpuscular Hemoglobin 33, Mean Corpuscular Hemoglobin Concent 34, Red Cell Distribution Width 13.0, Platelet Count 183, Mean Platelet Volume 9.8, Immature Granulocyte % (Auto) 8, Neutrophils (%) (Auto) 83H, Lymphocytes (%) (Auto) 5L, Monocytes (%) (Auto) 3, Eosinophils (%) (Auto) 1, Basophils (%) (Auto) 1, Neutrophils # (Auto) 16.5H, Lymphocytes # (Auto) 0.9L, Monocytes # (Auto) 0.6, Eosinophils # (Auto) 0.1, Basophils # (Auto) 0.2H, Immature Granulocyte # (Auto) 1.6H 03/07/21 08:25: Blood Gas Puncture Site RIGHT RADIAL, Blood Gas Patient Temperature 36.2, Arterial Blood pH 7.44H, Arterial Blood Partial Pressure CO2 40, Arterial Blood Partial Pressure O2 56L, Arterial Blood HCO3 27, Arterial Blood Total CO2 27.8, Arterial Blood Oxygen Saturation 90L, Arterial Blood Base Excess 2.5, Enrrique Test POSITIVE, Blood Gas Ventilator Setting NO, Blood Gas Inspired Oxygen 65 Assessment/Plan Assessment/Plan Admission Dx Acute Hypoxic Respiratory Failure / covid-19 Assessment & Plan Respiratory failure/COVID - Continue Dexamethasone & Enoxaprin Sodium. - Monitor O2 lvls and if patient deteriorates further consider moving to ICU to Start BiPAP. RIGOBERTO ESTRELLA MD 03/07/21 2213: Assessment/Plan Assessment/Plan (1) Respiratory failure Status: Acute Assessment & Plan: Secondary to COVID19 infection. s/p tocilizumab. On dexamethasone. 03/07 Requiring 100% FiO2 on vapotherm and still desaturating to the 70s with any activity, will transfer to ICU, anticipate need for bipap overnight, discussed chance of requiring intubation overnight and he does want to be intubated if it were necessary. I also spoke to his today and updated her and discussed current status. 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 See problem list for my assessment and plan. SOPHIE BEAULIEU Mar 07, 2021 20:28 RIGOBERTO ESTRELLA MD Mar 07, 2021 22:13
[2021-03-07] MEDS: cloNIDine 0.1 MG (CATAPRES) TAB PO PRN (20:41)
[2021-03-07] MEDS: ALPRAZolam 0.25 MG (XANAX) TAB PO PRN (20:43)
[2021-03-08] VITALS (28 sets, daily range): BP systolic 91–183; BP diastolic 36–92
[2021-03-08] MEDS ORDERED: DexMEDEtomidine 250 ML DRIP 250 ML IV ONE (01:26)
[2021-03-08] MEDS: DexMEDEtomidine 250 ML DRIP 250 ML IV SCH ×2 (01:27→23:48)
[2021-03-08 01:58] LABS: HEMATOCRIT 44 % (40-54); HEMOGLOBIN 15.1 g/dL (13.3-17.7); MEAN CORPUSCULAR HEMOGLOBIN 33 pg (25-34); MEAN CORPUSCULAR HGB CONC 34 g/dL (32-36); MEAN CORPUSCULAR VOLUME 96 fL (80-99); MEAN PLATELET VOLUME 9.9 fL (9.0-12.2); PLATELET COUNT 152 10^3/uL (130-400); WHITE BLOOD COUNT 21.7 10^3/uL (4.3-11.0)
[2021-03-08 02:10] LABS: ALBUMIN 3.3 GM/DL (3.2-4.5)
[2021-03-08 02:11] LABS: POTASSIUM 4.5 MMOL/L (3.6-5.0)
[2021-03-08 02:12] LABS: CALCIUM 8.2 MG/DL (8.5-10.1)
[2021-03-08 02:13] LABS: TOTAL PROTEIN 5.9 GM/DL (6.4-8.2)
[2021-03-08 02:15] LABS: BILIRUBIN,TOTAL 0.7 MG/DL (0.1-1.0)
[2021-03-08 02:16] LABS: CREATININE SERUM 0.91 MG/DL (0.60-1.30)
[2021-03-08] MEDS: RT-ALBUTEROL HFA 8.5 GM INHALER IH SCH ×6 (02:17→22:06)
[2021-03-08 03:46] LABS: MAGNESIUM 2.4 MG/DL (1.6-2.4)
[2021-03-08] MEDS: CATHETER FLUSH 10 ML SYR IV SCH ×3 (06:13→22:31)
[2021-03-08] MEDS: SENNA W/DOCUSATE (SENOKOT S) TABLET PO SCH ×2 (08:40→20:58)
[2021-03-08] MEDS: ASPIRIN 81 MG CHEW (CHILDREN'S ASA) PO SCH (08:40)
[2021-03-08] MEDS ORDERED: ENOXAPARIN 40 MG/0.4 ML (LOVENOX) SYR SQ SCH (10:00)
--- NOTE | 2021-03-08 11:24 | Tele-ICU Progress Note ---
Subjective Date Seen by a Provider: Mar 08, 2021 Time Seen by a Provider: 11:24 Sepsis Event Evaluation Height, Weight, BMI Height: 5'8.00" Weight: 260lbs. 0.0oz. [id number]; 38.87 BMI Method: Exam Exam Patient acknowledged, consented, and participated in this virtual visit which was conducted using real time audio/video Vital Signs Date Time Temp Pulse Resp B/P (MAP) Pulse Ox O2 Delivery O2 Flow Rate FiO2 03/08/21 10:59 61 22 92 70.00 03/08/21 09:00 47 22 113/50 (71) 90 NIV Bilevel 50.00 03/08/21 08:51 92 NIV Bilevel 50 03/08/21 08:00 35.9 03/08/21 08:00 52 20 125/62 (83) 91 NIV Bilevel 50.00 03/08/21 07:14 NIV Bilevel 50.00 03/08/21 07:07 45 22 94 50.00 03/08/21 07:00 44 03/08/21 07:00 44 21 110/77 (88) 99 NIV Bilevel 50.00 03/08/21 06:00 45 107/58 (74) 95 NIV Bilevel 65.00 03/08/21 05:49 NIV Bilevel 65.00 03/08/21 05:45 NIV Bilevel 60.00 03/08/21 05:00 46 18 91/41 (58) 91 NIV Bilevel 55.00 03/08/21 04:00 94 NIV Bilevel 55 03/08/21 04:00 46 20 105/53 (80) 95 NIV Bilevel 55.00 03/08/21 03:00 49 24 102/49 (68) 96 NIV Bilevel 55.00 03/08/21 02:59 NIV Bilevel 55.00 03/08/21 02:30 51 23 104/51 (78) 96 60.00 03/08/21 02:17 51 25 95 60.00 03/08/21 02:10 NIV Bilevel 60.00 03/08/21 02:00 53 20 135/72 (104) 97 65.00 03/08/21 01:43 NIV Bilevel 65.00 03/08/21 01:30 64 23 173/74 (114) 98 70.00 03/08/21 01:00 61 03/08/21 00:00 58 22 183/92 (122) 97 NIV Bilevel 70.00 03/08/21 00:00 94 NIV Bilevel 70 03/07/21 23:00 67 28 192/98 (124) 95 NIV Bilevel 70.00 03/07/21 22:00 67 26 177/94 (149) 94 NIV Bilevel 70.00 03/07/21 21:42 94 NIV Bilevel 70.00 03/07/21 21:34 62 25 95 70.00 03/07/21 21:30 NIV Bilevel 100.00 03/07/21 21:29 81 Vapotherm 40.00 100.00 03/07/21 21:00 78 186/109 (116) 93 Vapotherm 40.00 100.00 03/07/21 20:50 36.2 03/07/21 20:46 Vapotherm 40.00 100.00 03/07/21 20:00 82 19 200/105 (140) 97 Vapotherm 35.00 100.00 03/07/21 20:00 91 Vapotherm 35.00 100 03/07/21 19:00 95 03/07/21 19:00 95 226/115 (150) 87 Vapotherm 35.00 100.00 03/07/21 18:46 92 35.00 100 03/07/21 15:58 36.9 95 22 147/78 (101) 92 Vapotherm 35.00 100.00 03/07/21 15:00 94 35.00 100 03/07/21 12:04 36.7 85 20 148/69 (95) 92 Vapotherm 40.00 100.00 I & O 03/08/21 07:00 Intake Total 800 ml Output Total 1100 ml Balance -300 ml Height & Weight Height: 5'8.00" Weight: 260lbs. 0.0oz. [id number]; 38.87 BMI Method: General Appearance: No Apparent Distress, WD/WN, Anxious, Chronically ill HEENT: PERRL/EOMI, Normal ENT Inspection, Pharynx Normal, Moist Mucous Membranes Neck: Full Range of Motion, Normal Inspection, Non Tender Respiratory: Lungs Clear, Decreased Breath Sounds Cardiovascular: Regular Rate, Rhythm Capillary Refill: Less Than 3 Seconds Gastrointestinal: normal bowel sounds, non tender; No distended, No guarding, No rebound Extremity: Normal Capillary Refill, Normal Inspection, Normal Range of Motion, Non Tender, No Calf Tenderness, No Pedal Edema Neurologic/Psychiatric: Alert, Oriented x3 Skin: Normal Color, Warm/Dry Lymphatic: No Adenopathy Results Lab Laboratory Tests 03/07/21 05:15 03/07/21 06:50 03/08/21 01:40 Assessment/Plan Assessment/Plan (Tele-ICU Physician , Progress Note ) Available chart/ vitals / labs / Images reviewed Video assessment done using teleICU camera, rest of exam as per RN Discussed with RN Events overnight : transferred to ICU Afebrile I/O = even Drips: Pressors: , hemodynamically stable EXAM PER RN Consultants: Hospital course: 03/03 - admitted with COVID PNA 03/08 - transferredt o ICU - BIPAP /VAPOTHERM A/P Acute hypoxic resp failure with COVID PNA -self prone position if able - conservative fluid strategy (aim for even or negative fluid balance - BIPAP / VAPOTHERM - high risk for intubation DMIH-[id number]/COVID-19 infection- ( Dx on 02/20/2021 ) -Actemra on 03/04/2021 -Steroids IV 10 qd -Hypercoagulable state , DDIMER 19 on 03/08 -> lovenox ppx dose , follow D dimer monitor for superimposed bact PNA -PCT negative 03/08 , OFF abx Diabetes Mellitus - ISS , close f/up on steroids transaminitis likely due to COVID-19. - follow Anxiety - [precedex / xanax Lines : port in right chest Cee: + OG: Nutrition: po Analgesia: lortab Anxiety/ delirium -precedex / xanax VTE Prophylaxis: lovenox full dose Stress Ulcer Prophylaxis: po intake Glycemic Control: + Plans in collaboration with bedside consultants and IM MDs. Discussed with RN to reach out if any questions or concerns A total of 33 minutes of critical care time was devoted to this patient today, required to treat and/or prevent further deterioration of critical care condition ( as above) . YOLY MAO MD Mar 08, 2021 11:24
[2021-03-08] MEDS: ENOXAPARIN 300 MG/3 ML (LOVENOX) MULTI-DOSE VIAL SQ SCH ×2 (12:01→23:48)
--- NOTE | 2021-03-08 14:10 | Progress Note ---
SOPHIE BEAULIEU 03/08/21 1410: Subjective Subjective/Events-last exam Jimbo Katz is a 76 year old male who was sent to the ICU over night due to cintinued deterioration of respiratory function. Patient was started at a NIV bilevel of 100 and is now down to 50 with an O2 stat of 90% O2. Patient was able to eat some food this morning with just the nasal cannula but is still dependent on BiPAP at this time. Patient continues to have elevated WBC's but with a norm al Procalcitonin lvl. Review of Systems Pulmonary: Dyspnea Cardiovascular: No: Chest Pain Gastrointestinal: Other (Patient has a colostomy bad that is functioning well.); No: Nausea, Vomiting, Abdominal Pain, Constipation Musculoskeletal: No: neck pain, shoulder pain, arm pain, back pain, hand pain, leg pain, foot pain Neurological: No: Change in speech, Confusion Objective Exam Last Set of Vital Signs Vital Signs Date Time Temp Pulse Resp B/P (MAP) Pulse Ox O2 Delivery O2 Flow Rate FiO2 03/08/21 12:00 57 22 103/53 (70) 90 NIV Bilevel 50.00 03/08/21 08:51 50 03/08/21 08:00 35.9 Capillary Refill : Less Than 3 Seconds I&O Intake and Output 03/08/21 00:00 Intake Total 1100 ml Output Total 1150 ml Balance -50 ml Intake Oral 1100 ml Output Urine Total 1150 ml General: Oriented X3, Cooperative Heart: Regular Rate Abdomen: Soft, No Tenderness, Other (Colostomy appears to be functioning w/out redness or swelling in the area.) Extremities: No Edema, No Tenderness/Swelling Skin: No Rashes, No Breakdown, No Significant Lesion Neuro: Normal Speech Psych/Mental Status: Mental Status NL Results/Procedures Lab Laboratory Tests 03/08/21 01:40: White Blood Count 21.7H, Red Blood Count 4.62, Hemoglobin 15.1, Hematocrit 44, Mean Corpuscular Volume 96, Mean Corpuscular Hemoglobin 33, Mean Corpuscular Hemoglobin Concent 34, Red Cell Distribution Width 12.6, Platelet Count 152, Mean Platelet Volume 9.9, Sodium Level 139, Potassium Level 4.5, Chloride Level 103, Carbon Dioxide Level 24, Anion Gap 12, Blood Urea Nitrogen 28H, Creatinine 0.91, Estimat Glomerular Filtration Rate 81, BUN/Creatinine Ratio 31, Glucose Level 100, Calcium Level 8.2L, Corrected Calcium 8.8, Phosphorus Level 4.0, Magnesium Level 2.4, Total Bilirubin 0.7, Aspartate Amino Transf (AST/SGOT) 69H, Alanine Aminotransferase (ALT/SGPT) 69H, Alkaline Phosphatase 78, C-Reactive Protein High Sensitivity 0.36, Total Protein 5.9L, Albumin 3.3 03/08/21 01:47: Procalcitonin 0.08 03/08/21 03:40: D-Dimer 19.05H Assessment/Plan Assessment/Plan Assessment & Plan Respiratory failure/COVID - Continue Dexamethasone & increase Enoxaprin Sodium to therapeutic lvls (110mg BID) since D dimer jumped to 19.05 this morning. - Already status Post Tocilizumab so Monitor O2 lvls and adjust BiPAP lvls as necessary Elevated BUN/Creatinine ratio -> 28/.91 -> 30.77 -Suggests prerenal cause. Possibly dehydration/hypoperfusion. Patient has had elevated BUN/Creatinine ratio for several days now so not a major cause of concern. -If hypotension persists could consider IV normal saline but be cautious not to fuid overload the lungs. Leukocytosis -Patient has high WBC lvls but low procalcitonin. As of now unsure of the exact cause. Minorly elevated AST/ALT -At this point no indication that we are causing the elevation. believe it to be hepatitis as SE of covid infection. RIGOBERTO ESTRELLA MD 03/08/21 1707: Supervisory-Addendum Brief Verification & Attestation Participated in pt care: history, MDM, physical Personally performed: exam, history, MDM Care discussed with: Medical Student Procedures: n/a I personally saw and evaluated patient and did my own history and exam and my findings match those documented by the medical student. I directed the plan of care as documented by the medical student. SOPHIE BEAULIEU Mar 08, 2021 14:10 RIGOBERTO ESTRELLA MD Mar 08, 2021 17:07
[2021-03-09] VITALS (25 sets, daily range): BP systolic 97–145; BP diastolic 45–70
[2021-03-09] MEDS: RT-ALBUTEROL HFA 8.5 GM INHALER IH SCH ×6 (02:00→22:42)
[2021-03-09 03:37] LABS: HEMATOCRIT 42 % (40-54); HEMOGLOBIN 14.2 g/dL (13.3-17.7); MEAN CORPUSCULAR HEMOGLOBIN 33 pg (25-34); MEAN CORPUSCULAR HGB CONC 34 g/dL (32-36); MEAN CORPUSCULAR VOLUME 96 fL (80-99); MEAN PLATELET VOLUME 10.6 fL (9.0-12.2); PLATELET COUNT 152 10^3/uL (130-400); WHITE BLOOD COUNT 27.3 10^3/uL (4.3-11.0)
[2021-03-09 03:59] LABS: ALBUMIN 3.1 GM/DL (3.2-4.5); POTASSIUM 4.7 MMOL/L (3.6-5.0)
[2021-03-09 04:00] LABS: CALCIUM 7.8 MG/DL (8.5-10.1)
[2021-03-09 04:02] LABS: TOTAL PROTEIN 5.4 GM/DL (6.4-8.2)
[2021-03-09 04:03] LABS: BILIRUBIN,TOTAL 0.6 MG/DL (0.1-1.0)
[2021-03-09 04:05] LABS: CREATININE SERUM 0.96 MG/DL (0.60-1.30); PHOSPHORUS 3.8 MG/DL (2.3-4.7)
[2021-03-09 04:08] LABS: MAGNESIUM 2.4 MG/DL (1.6-2.4)
[2021-03-09] MEDS: MAGNESIUM 1 GM/100 ML IVPB 100 ML IV SCH (05:32)
[2021-03-09] MEDS: POTASSIUM CL 10MEQ/50ML IVPB 50 ML IV SCH (05:32)
[2021-03-09] MEDS: KCL 20 MEQ TAB (K-DUR) PO SCH (05:33)
[2021-03-09] MEDS: CATHETER FLUSH 10 ML SYR IV SCH ×3 (06:06→21:14)
[2021-03-09] MEDS: SENNA W/DOCUSATE (SENOKOT S) TABLET PO SCH ×2 (08:33→19:49)
[2021-03-09] MEDS: ASPIRIN 81 MG CHEW (CHILDREN'S ASA) PO SCH (08:33)
--- NOTE | 2021-03-09 08:33 | Progress Note ---
BEAULIEUSOPHIE 03/09/21 0833: Subjective Subjective/Events-last exam Jimbo Katz is a 76 year old Male we have been following due to respiratory failure due to COVID 19. He reported feeling better today than yesterday. He has no chest pain. He has tolerated Vapotherm for respiratory support during meals and uses the BiPAP while sleeping and between meals. When on BiPAP or Vapotherm he only reports shortness of breath when he coughs. No new symptoms reported by patient. Review of Systems General: No Chills HEENT: No Head Aches, No Visual Changes Pulmonary: Cough (SOB when patient coughs) Cardiovascular: No: Chest Pain, Palpitations, Edema Gastrointestinal: Other (colostomy is working well); No: Nausea, Vomiting, Abdominal Pain, Constipation Musculoskeletal: No: neck pain, shoulder pain, arm pain, back pain, hand pain, leg pain, foot pain Neurological: No: Numbness, Change in speech, Confusion Objective Exam Last Set of Vital Signs Vital Signs Date Time Temp Pulse Resp B/P (MAP) Pulse Ox O2 Delivery O2 Flow Rate FiO2 03/09/21 08:00 36.1 03/09/21 07:23 92 40.00 100 03/09/21 06:00 47 18 120/54 (76) NIV Bilevel Capillary Refill : Less Than 3 Seconds I&O Intake and Output 03/09/21 00:00 Intake Total 1150 ml Output Total 2550 ml Balance -1400 ml Intake Oral 900 ml IV Total 250 ml Output Urine Total 1050 ml Stool Total 1500 ml General: Cooperative Lungs: Other (Could hear wheezing in both sides of his lungs) Heart: Regular Rate, No Murmurs Abdomen: Normal Bowel Sounds, Soft, No Tenderness, Other (Colostomy is functioning with no redness or swelling) Extremities: No Edema Skin: No Rashes, No Breakdown Neuro: Normal Speech Psych/Mental Status: Mood NL Results/Procedures Lab Laboratory Tests 03/09/21 03:30: White Blood Count 27.3H, Red Blood Count 4.34, Hemoglobin 14.2, Hematocrit 42, Mean Corpuscular Volume 96, Mean Corpuscular Hemoglobin 33, Mean Corpuscular Hemoglobin Concent 34, Red Cell Distribution Width 12.4, Platelet Count 152, Mean Platelet Volume 10.6, Sodium Level 136, Potassium Level 4.7, Chloride Level 103, Carbon Dioxide Level 23, Anion Gap 10, Blood Urea Nitrogen 32H, Creatinine 0.96, Estimat Glomerular Filtration Rate 77, BUN/Creatinine Ratio 33, Glucose Level 88, Calcium Level 7.8L, Corrected Calcium 8.5, Phosphorus Level 3.8, Magnesium Level 2.4, Total Bilirubin 0.6, Aspartate Amino Transf (AST/SGOT) 80H, Alanine Aminotransferase (ALT/SGPT) 125H, Alkaline Phosphatase 77, Total Protein 5.4L, Albumin 3.1L Assessment/Plan Assessment/Plan Assessment & Plan Covid 19/ Acute respiratory failure -Continue dexamethasone and enoxaparin for treatment of covid and DVT prophylaxis. -Currently patient is in the ICU using NIV Bilevel for respiratory support but has tolerated Vapotherm with meals. -Patient is post tocilizumab -Monitor for now Leukocytosis -Procalcitonin lvls are low and no history of fevers. Believe it may be due to steroids. -Getting Blood cultures to make sure were not missing something. Liver Function -Patients AST (80) and ALT (125) are up from yesterday. Patient has had elevated AST/ALT lvls in the past. -Believe it may be due to the covid. For now follow. History of renal failure - appears stable at this time History of Rectal Carcinoma -Ostomy is functioning well. No need for additional workup at this time. Bradycardia -Believe it to be a side effect of the dexamethasone and Covid. Appears hemodynamically stable. Follow for now. RIGOBERTO ESTRELLA MD 03/09/21 1535: Supervisory-Addendum Brief Verification & Attestation Participated in pt care: history, MDM, physical Personally performed: exam, history, MDM Care discussed with: Medical Student Procedures: n/a I personally saw this patient and did my own history and exam which match those documented by the student. I directed the plan of care as documented by the student. SOPHIE BEAULIEU Mar 09, 2021 08:33 RIGOBERTO ESRTELLA MD Mar 09, 2021 15:35
--- NOTE | 2021-03-09 09:46 | Diagnostic Imaging Report ---
EXAMINATION: Chest 1 view HISTORY: Hypoxia COMPARISON: 03/07/2021 FINDINGS: Heart size and pulmonary vasculature are stable. Right IJ central line is unchanged. Stable patchy interstitial and airspace opacities are seen throughout both lungs. No pleural effusion or pneumothorax. The osseous structures are intact. IMPRESSION: 1. Stable patchy interstitial and airspace opacities are seen throughout both lungs. Dictated by: Dictated on workstation # [id number]
--- NOTE | 2021-03-09 09:47 | Tele-ICU Progress Note ---
Subjective Date Seen by a Provider: Mar 09, 2021 Time Seen by a Provider: 09:46 Sepsis Event Evaluation Height, Weight, BMI Height: 5'8.00" Weight: 260lbs. 0.0oz. 117.361412hz; 38.87 BMI Method: Exam Exam Patient acknowledged, consented, and participated in this virtual visit which was conducted using real time audio/video Vital Signs Date Time Temp Pulse Resp B/P (MAP) Pulse Ox O2 Delivery O2 Flow Rate FiO2 03/09/21 09:00 61 20 126/56 (79) 90 NIV Bilevel 75.00 03/09/21 08:00 36.1 03/09/21 08:00 51 21 136/58 (84) 89 NIV Bilevel 75.00 03/09/21 08:00 91 Vapotherm 40.00 100 03/09/21 07:23 92 40.00 100 03/09/21 07:14 45 03/09/21 07:00 45 20 145/56 (85) 92 NIV Bilevel 75.00 03/09/21 06:00 47 18 120/54 (76) 91 NIV Bilevel 03/09/21 05:00 46 20 105/54 (71) 89 NIV Bilevel 75.00 03/09/21 04:16 93 NIV Bilevel 75 03/09/21 04:00 47 19 107/50 (73) 92 NIV Bilevel 75.00 03/09/21 03:30 49 21 120/69 (103) 93 NIV Bilevel 75.00 03/09/21 02:00 51 23 121/58 (73) 93 NIV Bilevel 75.00 03/09/21 02:00 48 19 93 75.00 03/09/21 01:00 46 03/09/21 01:00 46 24 114/47 (69) 90 NIV Bilevel 75.00 03/09/21 00:00 97 NIV Bilevel 75 03/09/21 00:00 36.6 03/09/21 00:00 47 20 97/47 (64) 92 NIV Bilevel 75.00 03/08/21 23:48 50 102/58 03/08/21 23:00 46 19 133/62 (85) 95 NIV Bilevel 75.00 03/08/21 22:06 52 25 94 75.00 03/08/21 22:00 48 19 129/63 (91) 93 NIV Bilevel 75.00 03/08/21 21:37 50 93 NIV Bilevel 75.00 03/08/21 21:00 56 34 134/69 (80) 90 Vapotherm 40.00 100.00 03/08/21 20:00 91 Vapotherm 40.00 100 03/08/21 20:00 62 22 127/60 (78) 90 Vapotherm 40.00 100.00 03/08/21 20:00 36.3 03/08/21 19:00 57 03/08/21 19:00 57 27 138/66 (90) 87 Vapotherm 40.00 100.00 03/08/21 18:52 87 40.00 100 03/08/21 18:00 53 21 131/64 (86) 95 NIV Bilevel 50.00 03/08/21 17:00 60 23 120/57 (78) 94 NIV Bilevel 50.00 03/08/21 16:00 61 20 111/51 (71) 97 NIV Bilevel 50.00 03/08/21 16:00 92 35.00 90 03/08/21 15:00 55 17 136/71 (92) 91 NIV Bilevel 50.00 03/08/21 14:00 48 22 98/40 (59) 95 NIV Bilevel 50.00 03/08/21 13:00 52 22 113/50 (71) 94 NIV Bilevel 50.00 03/08/21 13:00 53 03/08/21 12:00 57 22 103/53 (70) 90 NIV Bilevel 50.00 03/08/21 11:00 58 21 128/62 (84) 90 NIV Bilevel 50.00 03/08/21 10:59 61 22 92 70.00 03/08/21 10:00 54 23 110/36 (60) 99 NIV Bilevel 50.00 I & O 03/09/21 07:00 Intake Total 1250 ml Output Total 2650 ml Balance -1400 ml Height & Weight Height: 5'8.00" Weight: 260lbs. 0.0oz. 117.516780rs; 38.87 BMI Method: General Appearance: No Apparent Distress, WD/WN, Anxious, Chronically ill HEENT: PERRL/EOMI, Normal ENT Inspection, Pharynx Normal, Moist Mucous Membranes Neck: Full Range of Motion, Normal Inspection, Non Tender Respiratory: Lungs Clear, Decreased Breath Sounds Cardiovascular: Regular Rate, Rhythm Capillary Refill: Less Than 3 Seconds Gastrointestinal: normal bowel sounds, non tender; No distended, No guarding, No rebound Extremity: Normal Capillary Refill, Normal Inspection, Normal Range of Motion, Non Tender, No Calf Tenderness, No Pedal Edema Neurologic/Psychiatric: Alert, Oriented x3 Skin: Normal Color, Warm/Dry Lymphatic: No Adenopathy Results Lab Laboratory Tests 03/08/21 01:40 03/09/21 03:30 Assessment/Plan Assessment/Plan (Tele-ICU Physician , Progress Note ) Available chart/ vitals / labs / Images reviewed Video assessment done using teleICU camera, rest of exam as per RN Discussed with RN Events overnight : transferred to ICU Afebrile I/O = neg 1.4 L Drips: precedex Pressors: , hemodynamically stable EXAM PER RN Consultants: Hospital course: 03/03 - admitted with COVID PNA 03/08 - transferredt o ICU - BIPAP /VAPOTHERM A/P Acute hypoxic resp failure with COVID PNA -self prone position if able - conservative fluid strategy (aim for even or negative fluid balance - BIPAP 05/03 100 % at night / VAPOTHERM 40 L 100% - high risk for intubation [id number]-8/COVID-19 infection- ( Dx on 02/20/2021 ) -Actemra on 03/04/2021 -Steroids IV 10 qd -Hypercoagulable state , DDIMER 19 on 03/08 -> lovenox full dose , follow D dimer monitor for superimposed bact PNA -PCT negative 03/08 , OFF abx ( s/p actemra , on steroids) - will order UA and sputum cx Diabetes Mellitus - ISS , close f/up on steroids transaminitis likely due to COVID-19. - follow, increasing Diarrhea ( colostomy bag ) - ? covid Anxiety - precedex / xanax Lines : port in right chest Cee: + OG: Nutrition: po Analgesia: lortab Anxiety/ delirium -precedex / xanax VTE Prophylaxis: lovenox full dose Stress Ulcer Prophylaxis: po intake Glycemic Control: + Plans in collaboration with bedside consultants and IM MDs. Discussed with RN to reach out if any questions or concerns A total of 33 minutes of critical care time was devoted to this patient today, required to treat and/or prevent further deterioration of critical care condition ( as above) YOLY MAO MD Mar 09, 2021 09:47
[2021-03-09] MEDS: ENOXAPARIN 300 MG/3 ML (LOVENOX) MULTI-DOSE VIAL SQ SCH ×2 (11:48→23:36)
[2021-03-09 15:25] LABS: BILIRUBIN,URINE NEGATIVE (NEGATIVE); COLOR,URINE YELLOW; GLUCOSE, URINE (UA) NEGATIVE (NEGATIVE); KETONES,URINE NEGATIVE (NEGATIVE); LEUKOCYTE ESTERASE ,URINE NEGATIVE (NEGATIVE); NITRITE,URINE NEGATIVE (NEGATIVE); PROTEIN,URINE NEGATIVE (NEGATIVE)
[2021-03-09 15:36] LABS: BACTERIA,URINE TRACE /HPF; CLARITY,URINE SL CLOUDY; WBC,URINE 0-2 /HPF
[2021-03-09] MEDS: HYDROcodone/APAP 5 MG/325 MG (LORTAB) TAB PO PRN (21:14)
[2021-03-09] MEDS: DexMEDEtomidine 250 ML DRIP 250 ML IV SCH (23:37)
[2021-03-10] VITALS (28 sets, daily range): BP systolic 83–160; BP diastolic 33–97
[2021-03-10] MEDS: HYDROcodone/APAP 5 MG/325 MG (LORTAB) TAB PO PRN ×6 (01:08→23:36)
[2021-03-10] MEDS: RT-ALBUTEROL HFA 8.5 GM INHALER IH SCH ×6 (02:35→22:14)
[2021-03-10 04:16] LABS: POTASSIUM 4.7 MMOL/L (3.6-5.0)
[2021-03-10 04:22] LABS: CREATININE SERUM 0.96 MG/DL (0.60-1.30); PHOSPHORUS 3.6 MG/DL (2.3-4.7)
[2021-03-10 04:25] LABS: MAGNESIUM 2.3 MG/DL (1.6-2.4)
[2021-03-10 04:50] LABS: BASOPHILS % (AUTO) 0 % (0-10); EOSINOPHILS # (AUTO) 0.4 10^3/uL (0.0-0.3); EOSINOPHILS % (AUTO) 1 % (0-10); HEMATOCRIT 40 % (40-54); HEMOGLOBIN 13.5 g/dL (13.3-17.7); LYMPHOCYTES # (AUTO) 2.2 10^3/uL (1.0-4.0); LYMPHOCYTES % (AUTO) 6 % (12-44); MEAN CORPUSCULAR HEMOGLOBIN 32 pg (25-34); MEAN CORPUSCULAR HGB CONC 34 g/dL (32-36); MEAN CORPUSCULAR VOLUME 95 fL (80-99); MEAN PLATELET VOLUME 11.2 fL (9.0-12.2); MONOCYTES # (AUTO) 0.7 10^3/uL (0.0-1.0); MONOCYTES % (AUTO) 2 % (0-12); NEUTROPHILS # (AUTO) 29.3 10^3/uL (1.8-7.8); NEUTROPHILS % (AUTO) 80 % (42-75); PLATELET COUNT 175 10^3/uL (130-400)
[2021-03-10 05:01] LABS: WHITE BLOOD COUNT 36.6 10^3/uL (4.3-11.0)
--- NOTE | 2021-03-10 05:13 | Tele-ICU Progress Note ---
Subjective Date Seen by a Provider: Mar 10, 2021 Time Seen by a Provider: 05:12 Subjective/Events-last exam lab results called by bed side rn Sepsis Event Evaluation Height, Weight, BMI Height: 5'8.00" Weight: 260lbs. 0.0oz. 117.906838za; 38.87 BMI Method: Exam Exam Patient acknowledged, consented, and participated in this virtual visit which was conducted using real time audio/video Vital Signs Date Time Temp Pulse Resp B/P (MAP) Pulse Ox O2 Delivery O2 Flow Rate FiO2 03/10/21 05:08 36.6 03/10/21 02:35 66 30 94 60.00 03/10/21 00:00 96 NIV Bilevel 60 03/10/21 00:00 755 25 111/51 (71) 91 NIV Bilevel 60.00 03/09/21 23:51 36.5 03/09/21 23:37 65 104/74 03/09/21 23:00 62 23 101/52 (68) 94 NIV Bilevel 60.00 03/09/21 22:42 66 30 95 60.00 03/09/21 22:00 71 23 106/48 (67) 94 NIV Bilevel 60.00 03/09/21 21:00 79 25 104/67 (79) 93 Vapotherm 40.00 100.00 03/09/21 20:00 97 Vapotherm 40.00 100 03/09/21 20:00 36.3 03/09/21 20:00 73 25 124/64 (84) 95 Vapotherm 40.00 100.00 03/09/21 19:00 84 25 111/53 (72) 95 Vapotherm 40.00 100.00 03/09/21 19:00 84 03/09/21 18:22 92 40.00 100 03/09/21 18:00 58 23 119/50 (73) 95 NIV Bilevel 50.00 03/09/21 17:00 55 27 137/63 (87) 95 NIV Bilevel 50.00 03/09/21 17:00 36.1 03/09/21 16:00 55 112/55 (74) 92 NIV Bilevel 50.00 03/09/21 15:52 91 NIV Bilevel 60 03/09/21 15:03 62 30 92 50.00 8/18/21 15:00 61 25 142/67 (92) 91 NIV Bilevel 50.00 03/09/21 14:00 61 25 135/70 (91) 96 NIV Bilevel 50.00 03/09/21 13:00 53 19 128/61 (83) 98 NIV Bilevel 75.00 03/09/21 12:16 61 03/09/21 12:00 52 30 123/54 (77) 94 NIV Bilevel 75.00 03/09/21 12:00 91 Vapotherm 40.00 100 03/09/21 11:56 36.7 03/09/21 11:00 52 21 108/50 (69) 94 NIV Bilevel 75.00 03/09/21 10:56 55 24 97 60.00 03/09/21 10:00 58 18 121/63 (82) 99 NIV Bilevel 75.00 03/09/21 09:00 61 20 126/56 (79) 90 NIV Bilevel 75.00 03/09/21 08:00 36.1 03/09/21 08:00 51 21 136/58 (84) 89 NIV Bilevel 75.00 03/09/21 08:00 91 Vapotherm 40.00 100 03/09/21 07:23 92 40.00 100 03/09/21 07:14 45 03/09/21 07:00 45 20 145/56 (85) 92 NIV Bilevel 75.00 03/09/21 06:00 47 18 120/54 (76) 91 NIV Bilevel I & O 03/10/21 07:00 Intake Total 1600 ml Output Total 1250 ml Balance 350 ml Height & Weight Height: 5'8.00" Weight: 260lbs. 0.0oz. 117.650871mc; 38.87 BMI Method: General Appearance: No Apparent Distress, WD/WN, Anxious, Chronically ill HEENT: PERRL/EOMI, Normal ENT Inspection, Pharynx Normal, Moist Mucous Membranes Neck: Full Range of Motion, Normal Inspection, Non Tender Respiratory: Lungs Clear, Decreased Breath Sounds Cardiovascular: Regular Rate, Rhythm Capillary Refill: Less Than 3 Seconds Gastrointestinal: normal bowel sounds, non tender; No distended, No guarding, No rebound Extremity: Normal Capillary Refill, Normal Inspection, Normal Range of Motion, Non Tender, No Calf Tenderness, No Pedal Edema Neurologic/Psychiatric: Alert, Oriented x3 Skin: Normal Color, Warm/Dry Lymphatic: No Adenopathy Results Lab Laboratory Tests 03/09/21 03:30 03/10/21 03:35 03/10/21 03:55 Assessment/Plan Assessment/Plan WBC went up to >30; pt on dexa/ stable cxray; we will check procal prior to deciding towards bacterial coinfection coverage/ starting abx TRE PHOENIX MD Mar 10, 2021 05:13
[2021-03-10] MEDS: CATHETER FLUSH 10 ML SYR IV SCH ×3 (05:26→23:36)
[2021-03-10] MEDS: MAGNESIUM 1 GM/100 ML IVPB 100 ML IV SCH (05:40)
[2021-03-10] MEDS: POTASSIUM CL 10MEQ/50ML IVPB 50 ML IV SCH (05:40)
[2021-03-10] MEDS: KCL 20 MEQ TAB (K-DUR) PO SCH (05:40)
[2021-03-10 06:13] LABS: BAND NEUTROPHILS 4 %; EOSINOPHILS % (MANUAL) 3 %; LYMPHOCYTES % (MANUAL) 6 %; MONOCYTES % (MANUAL) 4 %; NEUTROPHILS % (MANUAL) 79 %
[2021-03-10 06:14] LABS: BLAST CELLS 2 %; MYELOCYTES % 2 %; RBC MORPH NORMAL
[2021-03-10] MEDS: SENNA W/DOCUSATE (SENOKOT S) TABLET PO SCH ×2 (08:21→20:06)
[2021-03-10] MEDS: ASPIRIN 81 MG CHEW (CHILDREN'S ASA) PO SCH (08:21)
--- NOTE | 2021-03-10 08:40 | Progress Note ---
SOPHIE BEAULIEU 03/10/21 0840: Subjective Subjective/Events-last exam Jimbo Katz is a 76 year old male we are following due to acute respiratory failure due to covid-19. Patient reported no pain in extremities. No chest pain. No shortness of breath while supported with oxygen except when coughing. Patient reported feeling the same today as he did yesterday. Review of Systems HEENT: No Head Aches, No Visual Changes Pulmonary: Cough Cardiovascular: Palpitations; No: Chest Pain Gastrointestinal: No: Nausea, Vomiting, Abdominal Pain, Diarrhea, Constipation Genitourinary: Other (Patient has a gaston catheter) Musculoskeletal: No: neck pain, shoulder pain, arm pain, back pain, hand pain, leg pain, foot pain Neurological: No: Numbness, Change in speech, Confusion Objective Exam Last Set of Vital Signs Vital Signs Date Time Temp Pulse Resp B/P (MAP) Pulse Ox O2 Delivery O2 Flow Rate FiO2 03/10/21 08:04 36.4 03/10/21 08:00 67 20 120/52 (74) 95 NIV Bilevel 70.00 03/10/21 04:00 60 Capillary Refill : Less Than 3 Seconds I&O Intake and Output 03/10/21 00:00 Intake Total 1600 ml Output Total 1275 ml Balance 325 ml Intake Oral 1350 ml IV Total 250 ml Output Urine Total 1275 ml General: Alert, Oriented X3, Cooperative Lungs: Other (lungs sounded muffled) Heart: Regular Rate, Normal S1, Normal S2, Other (bradycardic) Abdomen: Normal Bowel Sounds, Soft, No Tenderness Extremities: No Edema, No Tenderness/Swelling Skin: No Rashes, No Significant Lesion Neuro: Normal Speech Psych/Mental Status: Mood NL Results/Procedures Lab Laboratory Tests 03/09/21 15:20: Urine Color YELLOW, Urine Clarity SL CLOUDY, Urine pH 6.0, Urine Specific [place] 1.020, Urine Protein NEGATIVE, Urine Glucose (UA) NEGATIVE, Urine Ketones NEGATIVE, Urine Nitrite NEGATIVE, Urine Bilirubin NEGATIVE, Urine Urobilinogen 1.0, Urine Leukocyte Esterase NEGATIVE, Urine RBC (Auto) 3+H, Urine RBC 10-25H, Urine WBC 0-2, Urine Squamous Epithelial Cells NONE, Urine Crystals NONE, Urine Bacteria TRACE, Urine Casts NONE, Urine Mucus SMALLH, Urine Culture Indicated NO 03/10/21 03:25: Procalcitonin 0.09 03/10/21 03:35: Sodium Level 136, Potassium Level 4.7, Chloride Level 103, Carbon Dioxide Level 22, Anion Gap 11, Blood Urea Nitrogen 38H, Creatinine 0.96, Estimat Glomerular Filtration Rate 77, BUN/Creatinine Ratio 40, Glucose Level 80, Calcium Level 8.0L, Phosphorus Level 3.6, Magnesium Level 2.3 03/10/21 03:55: White Blood Count 36.6*H, Red Blood Count 4.20L, Hemoglobin 13.5, Hematocrit 40, Mean Corpuscular Volume 95, Mean Corpuscular Hemoglobin 32, Mean Corpuscular Hemoglobin Concent 34, Red Cell Distribution Width 12.5, Platelet Count 175, Mean Platelet Volume 11.2, Immature Granulocyte % (Auto) 11, Neutrophils (%) (Auto) 80H, Lymphocytes (%) (Auto) 6L, Monocytes (%) (Auto) 2, Eosinophils (%) (Auto) 1, Basophils (%) (Auto) 0, Neutrophils # (Auto) 29.3H, Lymphocytes # (Auto) 2.2, Monocytes # (Auto) 0.7, Eosinophils # (Auto) 0.4H, Basophils # (Auto) 0.0, Immature Granulocyte # (Auto) 4.1H, Neutrophils % (Manual) 79, Lymphocytes % (Manual) 6, Monocytes % (Manual) 4, Eosinophils % (Manual) 3, Myelocytes % 2, Band Neutrophils 4, Blast Cells 2, Blood Morphology Comment NORMAL Assessment/Plan Assessment/Plan Assessment & Plan Covid 19/ Acute respiratory failure -Continue dexamethasone and enoxaparin for treatment of covid and DVT prophylaxis. -Currently patient is in the ICU using NIV Bilevel for respiratory support but has tolerated Vapotherm with meals. -Overnight the patients NIV Bilevel was bumped up minorly. -Patient is post tocilizumab -Monitor for now Leukocytosis -Continues to climb, unsure of what is causing it. -Procalcitonin lvls are low and no history of fevers. Chest X ray showed no lobar pneumonia. -Ordering Blood cultures, Urine cultures, and peripheral blood smear. Liver Function -Patients AST (80) and ALT (125) were elevated yesterday. Patient has had elevated AST/ALT lvls in the past. -Believe it may be due to the covid. For now follow. History of renal failure - appears stable at this time History of Rectal Carcinoma -Ostomy is functioning w/ no redness or swelling. No need for additional workup at this time. Bradycardia -Believe it to be a side effect of the dexamethasone and Covid. Appears hemodynamically stable. Follow for now. DVT Prophylaxis -Enoxaparin (1) DVT prophylaxis Status: Acute Assessment & Plan: Enoxaparin RIGOBERTO ESTRELLA MD 03/10/21 1529: Supervisory-Addendum Brief Verification & Attestation Participated in pt care: history, MDM, physical Personally performed: exam, history, MDM Care discussed with: Medical Student Procedures: n/a I saw patient and did my own history and exam and agree with student documentation, I directed the plan of care as documented by the medical student. Spoke to patient's today and updated her on his condition as well. SOPHIE BEAULIEU Mar 10, 2021 08:40 RIGOBERTO ESTRELLA MD Mar 10, 2021 15:29
[2021-03-10 09:01] LABS: ABSOLUTE RETIC # 76 10e9/uL (24-90)
--- NOTE | 2021-03-10 09:15 | Tele-ICU Progress Note ---
Subjective Date Seen by a Provider: Mar 10, 2021 Time Seen by a Provider: 09:15 Sepsis Event Evaluation Height, Weight, BMI Height: 5'8.00" Weight: 260lbs. 0.0oz. 117.191713mw; 38.87 BMI Method: Exam Exam Patient acknowledged, consented, and participated in this virtual visit which was conducted using real time audio/video Vital Signs Date Time Temp Pulse Resp B/P (MAP) Pulse Ox O2 Delivery O2 Flow Rate FiO2 03/10/21 08:04 36.4 03/10/21 08:00 67 20 120/52 (74) 95 NIV Bilevel 70.00 03/10/21 07:17 64 21 94 70.00 03/10/21 07:00 53 03/10/21 07:00 53 20 122/63 (82) 91 NIV Bilevel 70.00 03/10/21 06:08 NIV Bilevel 70.00 03/10/21 06:00 52 23 111/49 (69) 88 NIV Bilevel 60.00 03/10/21 05:08 36.6 03/10/21 05:00 56 19 142/72 (95) 91 NIV Bilevel 60.00 03/10/21 04:00 96 NIV Bilevel 60 03/10/21 04:00 51 18 118/97 (104) 92 NIV Bilevel 60.00 03/10/21 03:00 50 23 83/33 (50) 92 NIV Bilevel 60.00 03/10/21 02:35 66 30 94 60.00 03/10/21 02:00 52 23 87/44 (58) 92 NIV Bilevel 60.00 03/10/21 01:00 50 03/10/21 01:00 57 18 94/54 (67) 92 NIV Bilevel 60.00 03/10/21 00:00 96 NIV Bilevel 60 03/10/21 00:00 75 25 111/51 (71) 91 NIV Bilevel 60.00 03/09/21 23:51 36.5 03/09/21 23:37 65 104/74 03/09/21 23:00 62 23 101/52 (68) 94 NIV Bilevel 60.00 03/09/21 22:42 66 30 95 60.00 03/09/21 22:00 71 23 106/48 (67) 94 NIV Bilevel 60.00 03/09/21 21:00 79 25 104/67 (79) 93 Vapotherm 40.00 100.00 03/09/21 20:00 97 Vapotherm 40.00 100 03/09/21 20:00 36.3 03/09/21 20:00 73 25 124/64 (84) 95 Vapotherm 40.00 100.00 03/09/21 19:00 84 25 111/53 (72) 95 Vapotherm 40.00 100.00 03/09/21 19:00 84 03/09/21 18:22 92 40.00 100 03/09/21 18:00 58 23 119/50 (73) 95 NIV Bilevel 50.00 03/09/21 17:00 55 27 137/63 (87) 95 NIV Bilevel 50.00 03/09/21 17:00 36.1 03/09/21 16:00 55 112/55 (74) 92 NIV Bilevel 50.00 03/09/21 15:52 91 NIV Bilevel 60 03/09/21 15:03 62 30 92 50.00 03/09/21 15:00 61 25 142/67 (92) 91 NIV Bilevel 50.00 03/09/21 14:00 61 25 135/70 (91) 96 NIV Bilevel 50.00 03/09/21 13:00 53 19 128/61 (83) 98 NIV Bilevel 75.00 03/09/21 12:16 61 03/09/21 12:00 52 30 123/54 (77) 94 NIV Bilevel 75.00 03/09/21 12:00 91 Vapotherm 40.00 100 03/09/21 11:56 36.7 03/09/21 11:00 52 21 108/50 (69) 94 NIV Bilevel 75.00 03/09/21 10:56 55 24 97 60.00 03/09/21 10:00 58 18 121/63 (82) 99 NIV Bilevel 75.00 I & O 03/10/21 07:00 Intake Total 1800 ml Output Total 1475 ml Balance 325 ml Height & Weight Height: 5'8.00" Weight: 260lbs. 0.0oz. 117.628534st; 38.87 BMI Method: General Appearance: No Apparent Distress, WD/WN, Anxious, Chronically ill HEENT: PERRL/EOMI, Normal ENT Inspection, Pharynx Normal, Moist Mucous Membranes Neck: Full Range of Motion, Normal Inspection, Non Tender Respiratory: Lungs Clear, Decreased Breath Sounds Cardiovascular: Regular Rate, Rhythm Capillary Refill: Less Than 3 Seconds Gastrointestinal: normal bowel sounds, non tender; No distended, No guarding, No rebound Extremity: Normal Capillary Refill, Normal Inspection, Normal Range of Motion, Non Tender, No Calf Tenderness, No Pedal Edema Neurologic/Psychiatric: Alert, Oriented x3 Skin: Normal Color, Warm/Dry Lymphatic: No Adenopathy Results Lab Laboratory Tests 03/09/21 03:30 03/10/21 03:35 03/10/21 03:55 Assessment/Plan Assessment/Plan (Tele-ICU Physician , Progress Note ) Available chart/ vitals / labs / Images reviewed Video assessment done using teleICU camera, rest of exam as per RN Discussed with RN Events overnight : bipap Afebrile I/O = neg 300 Drips: precedex Pressors: , hemodynamically stable EXAM PER RN Consultants: Hospital course: 03/03 - admitted with COVID PNA 03/08 - transferredt ICU - BIPAP 03/10 - vapotherm 40L 100% / - BIPAP 14/8 70 % at night 03/10 WBC 36 A/P Acute hypoxic resp failure with COVID PNA -self prone position - conservative fluid strategy (aim for even or negative fluid balance - BIPAP 14/8 70 % at night / VAPOTHERM 40 L 100% - O2 NEEDS DECREASED MINIMALLY LPJI-Umraqwgrdzz-7/COVID-19 infection- ( Dx on 02/20/2021 ) -Actemra on 03/04/2021 -Steroids IV 10 qd -Hypercoagulable state , DDIMER 19 on 03/08 -> lovenox full dose , follow D dimer monitor for superimposed bact PNA -PCT negative 03/08 AND 03/10 , OFF abx ( s/p actemra , on steroids) -NEG repeted UA and sputum cx pending , no fever RISING WBC : POSSIBLE LEUKEMOID RECTION , BUT Dexamethasone and tocilizumab considerably reduces the value of PCT for detection of secondary infections in COVID-19 patients - WILL FOLLOW CLINICALLY , PATIENT SEEMS IMPROVING , LOW TRESHOULD TO START ABX Diabetes Mellitus - ISS , close f/up on steroids transaminitis likely due to COVID-19. - follow tomorrow again , increasing Diarrhea ( colostomy bag ) - ? covid - improved Anxiety - precedex / xanax Lines : port in right chest Cee: + OG: Nutrition: po - doing well Analgesia: lortab Anxiety/ delirium -precedex / xanax VTE Prophylaxis: lovenox full dose Stress Ulcer Prophylaxis: po intake Glycemic Control: + Plans in collaboration with bedside consultants and IM MDs. Discussed with RN to reach out if any questions or concerns A total of 33 minutes of critical care time was devoted to this patient today, required to treat and/or prevent further deterioration of critical care condition ( as above) YOLY MAO MD Mar 10, 2021 09:15
[2021-03-10] MEDS: ENOXAPARIN 300 MG/3 ML (LOVENOX) MULTI-DOSE VIAL SQ SCH ×2 (13:15→23:36)
[2021-03-11] VITALS (30 sets, daily range): BP systolic 91–155; BP diastolic 47–89
[2021-03-11] MEDS: RT-ALBUTEROL HFA 8.5 GM INHALER IH SCH ×6 (03:43→21:53)
[2021-03-11] MEDS: DexMEDEtomidine 250 ML DRIP 250 ML IV SCH ×2 (04:08→19:59)
[2021-03-11] MEDS: HYDROcodone/APAP 5 MG/325 MG (LORTAB) TAB PO PRN ×4 (04:09→19:41)
[2021-03-11] MEDS: CATHETER FLUSH 10 ML SYR IV SCH ×3 (04:09→19:56)
[2021-03-11 04:52] LABS: BASOPHILS # (AUTO) 0.1 10^3/uL (0.0-0.1); BASOPHILS % (AUTO) 0 % (0-10); EOSINOPHILS # (AUTO) 0.4 10^3/uL (0.0-0.3); EOSINOPHILS % (AUTO) 1 % (0-10); HEMATOCRIT 35 % (40-54); LYMPHOCYTES # (AUTO) 2.6 10^3/uL (1.0-4.0); LYMPHOCYTES % (AUTO) 5 % (12-44); MEAN CORPUSCULAR HEMOGLOBIN 33 pg (25-34); MEAN CORPUSCULAR HGB CONC 34 g/dL (32-36); MEAN CORPUSCULAR VOLUME 96 fL (80-99); MEAN PLATELET VOLUME 11.3 fL (9.0-12.2); MONOCYTES # (AUTO) 0.9 10^3/uL (0.0-1.0); MONOCYTES % (AUTO) 2 % (0-12); NEUTROPHILS % (AUTO) 81 % (42-75); PLATELET COUNT 212 10^3/uL (130-400)
[2021-03-11 04:55] LABS: WHITE BLOOD COUNT 49.4 10^3/uL (4.3-11.0)
[2021-03-11 05:12] LABS: POTASSIUM 4.7 MMOL/L (3.6-5.0)
[2021-03-11 05:13] LABS: CALCIUM 8.1 MG/DL (8.5-10.1)
[2021-03-11 05:15] LABS: TOTAL PROTEIN 5.4 GM/DL (6.4-8.2)
[2021-03-11 05:16] LABS: BILIRUBIN,TOTAL 0.4 MG/DL (0.1-1.0)
[2021-03-11 05:18] LABS: CREATININE SERUM 0.89 MG/DL (0.60-1.30); PHOSPHORUS 3.5 MG/DL (2.3-4.7)
[2021-03-11 05:20] LABS: BILIRUBIN,DIRECT 0.2 MG/DL (0.0-0.3); BILIRUBIN,INDIRECT 0.2 MG/DL
[2021-03-11 05:22] LABS: MAGNESIUM 2.1 MG/DL (1.6-2.4)
[2021-03-11] MEDS: POTASSIUM CL 10MEQ/50ML IVPB 50 ML IV SCH (05:49)
[2021-03-11] MEDS: KCL 20 MEQ TAB (K-DUR) PO SCH (05:49)
[2021-03-11] MEDS: MAGNESIUM 1 GM/100 ML IVPB 100 ML IV SCH (05:49)
[2021-03-11] MEDS: ASPIRIN 81 MG CHEW (CHILDREN'S ASA) PO SCH (09:07)
[2021-03-11] MEDS: SENNA W/DOCUSATE (SENOKOT S) TABLET PO SCH ×2 (09:07→19:55)
[2021-03-11] MEDS: ENOXAPARIN 300 MG/3 ML (LOVENOX) MULTI-DOSE VIAL SQ SCH (09:08)
--- NOTE | 2021-03-11 10:56 | Tele-ICU Progress Note ---
Subjective Date Seen by a Provider: Mar 11, 2021 Time Seen by a Provider: 10:00 Subjective/Events-last exam This patient admitted with acute hypoxic respiratory failure due to Covid19 pneumonia and he has been noninvasively ventilated with a BiPAP ventilation with intermittent Vapotherm. However this a.m. he did not tolerate Vapotherm ventilation. He is back on BiPAP ventilation. His WBC count has been going up even though his cultures are negative. I suspect at this time a secondary bacterial pneumonia. Will consider adding a broad-spectrum antibiotic. Review of Systems General: Other (PER rn) Sepsis Event Evaluation Height, Weight, BMI Height: 5'8.00" Weight: 260lbs. 0.0oz. 117.933859sz; 38.87 BMI Method: Exam Exam Patient acknowledged, consented, and participated in this virtual visit which was conducted using real time audio/video Vital Signs Date Time Temp Pulse Resp B/P (MAP) Pulse Ox O2 Delivery O2 Flow Rate FiO2 03/11/21 10:00 62 19 91/51 (64) 97 NIV Bilevel 70.00 03/11/21 09:00 61 21 93/47 (62) 95 NIV Bilevel 70.00 03/11/21 08:00 61 128/68 (91) 93 03/11/21 08:00 96 NIV Bilevel 70 03/11/21 08:00 36.3 03/11/21 07:30 56 24 142/89 (107) 95 NIV Bilevel 70.00 03/11/21 07:27 61 20 96 70.00 03/11/21 07:00 55 03/11/21 07:00 54 25 113/66 (81) 95 NIV Bilevel 70.00 03/11/21 06:00 56 23 107/57 (74) 96 NIV Bilevel 70.00 03/11/21 05:00 62 28 95/63 (74) 96 NIV Bilevel 70.00 03/11/21 04:08 63 108/60 03/11/21 04:00 61 28 108/60 (76) 94 NIV Bilevel 70.00 03/11/21 04:00 96 NIV Bilevel 70 03/11/21 04:00 36.6 03/11/21 03:43 61 20 96 70.00 03/11/21 03:00 60 26 124/65 (84) 97 NIV Bilevel 70.00 03/11/21 02:00 62 30 103/52 (69) 95 NIV Bilevel 70.00 03/11/21 01:00 74 03/11/21 01:00 74 32 114/60 (78) 94 NIV Bilevel 70.00 03/11/21 00:00 36.5 03/11/21 00:00 94 NIV Bilevel 70 03/11/21 00:00 85 22 128/58 (81) 95 NIV Bilevel 70.00 03/10/21 23:00 100 24 129/73 (91) 94 NIV Bilevel 70.00 03/10/21 22:14 90 41 91 70.00 03/10/21 22:00 89 22 141/65 (90) 92 NIV Bilevel 70.00 03/10/21 21:00 86 21 115/56 (75) 93 NIV Bilevel 70.00 03/10/21 20:00 98 23 145/78 (100) 92 NIV Bilevel 70.00 03/10/21 20:00 94 NIV Bilevel 70 03/10/21 19:26 36.5 96 30 147/68 (94) 92 NIV Bilevel 70.00 03/10/21 19:17 90 41 95 50.00 03/10/21 19:00 81 27 123/82 (96) 89 NIV Bilevel 50.00 03/10/21 19:00 78 03/10/21 19:00 NIV Bilevel 50.00 03/10/21 18:00 56 11 110/44 (66) 93 NIV Bilevel 70.00 03/10/21 17:00 58 28 106/55 (72) 93 NIV Bilevel 70.00 03/10/21 16:16 94 NIV Bilevel 55 03/10/21 16:05 36.7 03/10/21 16:00 65 18 96/52 (67) 91 NIV Bilevel 70.00 03/10/21 15:00 73 22 105/62 (76) 92 NIV Bilevel 70.00 03/10/21 14:56 77 41 95 55.00 03/10/21 14:00 75 146/67 (93) 95 NIV Bilevel 70.00 03/10/21 13:00 60 20 110/50 (70) 98 NIV Bilevel 70.00 03/10/21 13:00 62 03/10/21 12:13 36.7 03/10/21 12:00 78 36 106/45 (65) 97 NIV Bilevel 70.00 03/10/21 12:00 94 NIV Bilevel 60 03/10/21 11:00 94 160/75 (103) 98 NIV Bilevel 70.00 I & O 03/11/21 07:00 Intake Total 1540 ml Output Total 2025 ml Balance -485 ml Height & Weight Height: 5'8.00" Weight: 260lbs. 0.0oz. 117.037033zk; 38.87 BMI Method: General Appearance: No Apparent Distress, WD/WN, Anxious, Chronically ill, Other (PHYSICAL EXAM PER ATTENDING PHYSICIAN) HEENT: PERRL/EOMI, Normal ENT Inspection, Pharynx Normal, Moist Mucous Membranes Neck: Full Range of Motion, Normal Inspection, Non Tender Respiratory: Lungs Clear, Decreased Breath Sounds Cardiovascular: Regular Rate, Rhythm Capillary Refill: Less Than 3 Seconds Gastrointestinal: normal bowel sounds, non tender; No distended, No guarding, No rebound Extremity: Normal Capillary Refill, Normal Inspection, Normal Range of Motion, Non Tender, No Calf Tenderness, No Pedal Edema Neurologic/Psychiatric: Alert, Oriented x3 Skin: Normal Color, Warm/Dry Lymphatic: No Adenopathy Results Lab Laboratory Tests 03/10/21 03:35 03/10/21 03:55 03/11/21 04:15 Meds REVIEWED Radiology CXR REVIEWED Assessment/Plan Assessment/Plan 1. Covid19 pneumonia 2. Acute hypoxic respiratory failure requiring noninvasive ventilation. 3. Rising WBC concern for secondary bacterial pneumonia. 4. Hyperglycemia probably due to combination of infection and steroids. Recommendations 1. Continue BiPAP ventilation 2. Continue Decadron 3. Lovenox full dose for hypercoagulable state 4. Insulin for sliding scale coverage 5. We will add meropenem for bacterial coverage hospital-acquired likely gram- negative. Critical Care: Critically Ill Patient Time spent with patient (mins): 35 JAY JORDAN MD Mar 11, 2021 10:56
[2021-03-11] MEDS ORDERED: MEROPENEM 500 MG in WATER (STERILE) FOR INJECTION 10 ML IV SCH (11:15)
--- NOTE | 2021-03-11 13:40 | Progress Note ---
SOPHIE BEAULIEU 03/11/21 1340: Subjective Subjective/Events-last exam Jimbo Katz is a 76 year old male in the hospital due to COVID-19 induced acute respiratory distress. Patient reported no new change in symptoms. He has no chest pain, Nausea, vomiting, or new onset headaches. His WBC's continue to climb although no indications of bacterial infection has been found so far. AST and ALT have increased since 2 days ago. Objective Exam Last Set of Vital Signs Vital Signs Date Time Temp Pulse Resp B/P (MAP) Pulse Ox O2 Delivery O2 Flow Rate FiO2 03/11/21 13:00 58 03/11/21 13:00 19 96/54 (79) 99 NIV Bilevel 70.00 03/11/21 08:00 70 03/11/21 08:00 36.3 Capillary Refill : Less Than 3 Seconds I&O Intake and Output 03/11/21 00:00 Intake Total 1540 ml Output Total 1975 ml Balance -435 ml Intake Oral 1540 ml Output Urine Total 1975 ml General: Alert, Oriented X3, Cooperative Lungs: Other (Rhonci ) Heart: Regular Rate, No Murmurs Abdomen: Normal Bowel Sounds, Soft, No Tenderness, Other (Ostomy is functioning well with no redness or swelling) Extremities: No Edema, Normal Pulses Neuro: Normal Speech Psych/Mental Status: Mood NL Results/Procedures Lab Laboratory Tests 03/11/21 04:15: White Blood Count 49.4*H, Red Blood Count 3.67L, Hemoglobin 12.0L, Hematocrit 35L, Mean Corpuscular Volume 96, Mean Corpuscular Hemoglobin 33, Mean Corpuscular Hemoglobin Concent 34, Red Cell Distribution Width 12.7, Platelet Count 212, Mean Platelet Volume 11.3, Immature Granulocyte % (Auto) 11, Neutrophils (%) (Auto) 81H, Lymphocytes (%) (Auto) 5L, Monocytes (%) (Auto) 2, Eosinophils (%) (Auto) 1, Basophils (%) (Auto) 0, Neutrophils # (Auto) 40.0H, Lymphocytes # (Auto) 2.6, Monocytes # (Auto) 0.9, Eosinophils # (Auto) 0.4H, Basophils # (Auto) 0.1, Immature Granulocyte # (Auto) 5.4H, Sodium Level 138, Potassium Level 4.7, Chloride Level 107, Carbon Dioxide Level 19L, Anion Gap 12, Blood Urea Nitrogen 57H, Creatinine 0.89, Estimat Glomerular Filtration Rate 84, BUN/Creatinine Ratio 64, Glucose Level 98, Calcium Level 8.1L, Phosphorus Level 3.5, Magnesium Level 2.1, Total Bilirubin 0.4, Direct Bilirubin 0.2, Indirect Bilirubin 0.2, Aspartate Amino Transf (AST/SGOT) 83H, Alanine Aminotransferase (ALT/SGPT) 234H, Alkaline Phosphatase 66, Total Protein 5.4L, Albumin 3.0L Microbiology 03/09/21 Gram Stain - Final, Complete 03/09/21 Sputum Culture - Final, Complete Usual upper respiratory bubba 03/09/21 Blood Culture - Preliminary, Resulted No growth Assessment/Plan Assessment/Plan Assessment & Plan Covid 19/ Acute respiratory failure -Continue Dexamethasone and Enoxaparin for treatment of covid and DVT prophylaxis. -Currently patient is in the ICU using NIV Bilevel for respiratory support but has tolerated Vapotherm with meals. -Patient is post tocilizumab -Monitor for now Leukocytosis -WBC's are up to 49.4 today, unsure of what is causing it. -Procalcitonin lvls are low and no history of fevers. Chest X ray showed no lobar pneumonia. -Sputum culture showed many WBC's in the lungs w/ mixed normal respiratory bacteria. -Pathology report showed no malignant abnormalities and said it was a reactive process. Could just be due ti Steroids and COVID infection. Continue to monitor. Liver Function -Patients AST (83) and ALT (234) were elevated today compared to 2 days ago. Patient has had elevated AST/ALT lvls in the past. -Believe it may be due to the covid. For now follow closely. History of renal failure - appears stable at this time History of Rectal Carcinoma -Ostomy is functioning w/ no redness or swelling. No need for additional workup at this time. Bradycardia -Believe it to be a side effect of the dexamethasone and Covid. Appears hemodyn amically stable. DVT Prophylaxis -Enoxaparin RIGOBERTO ESTRELLA MD 03/11/21 1412: Supervisory-Addendum Brief Verification & Attestation Participated in pt care: history, MDM, physical Personally performed: exam, history, MDM Care discussed with: Medical Student Procedures: n/a I did my own history and exam on this patient today and agree with the documentation by the medical student. I directed the plan of care as documented by the medical student. SOPHIE BEAULIEU Mar 11, 2021 13:40 RIGOBERTO ESTRELLA MD Mar 11, 2021 14:12
[2021-03-11] MEDS: MEROPENEM 500 MG in WATER (STERILE) FOR INJECTION 10 ML IV SCH (19:41)
[2021-03-12] VITALS (32 sets, daily range): BP systolic 82–172; BP diastolic 24–103
[2021-03-12] MEDS: ENOXAPARIN 300 MG/3 ML (LOVENOX) MULTI-DOSE VIAL SQ SCH ×3 (00:08→22:10)
[2021-03-12] MEDS: HYDROcodone/APAP 5 MG/325 MG (LORTAB) TAB PO PRN ×2 (01:26→05:37)
[2021-03-12] MEDS: RT-ALBUTEROL HFA 8.5 GM INHALER IH SCH ×6 (02:49→21:35)
[2021-03-12] MEDS: MEROPENEM 500 MG in WATER (STERILE) FOR INJECTION 10 ML IV SCH ×4 (04:04→20:19)
[2021-03-12 04:47] LABS: BASOPHILS # (AUTO) 0.1 10^3/uL (0.0-0.1); BASOPHILS % (AUTO) 0 % (0-10); EOSINOPHILS # (AUTO) 0.2 10^3/uL (0.0-0.3); EOSINOPHILS % (AUTO) 0 % (0-10); HEMATOCRIT 28 % (40-54); HEMOGLOBIN 9.6 g/dL (13.3-17.7); LYMPHOCYTES # (AUTO) 4.3 10^3/uL (1.0-4.0); LYMPHOCYTES % (AUTO) 6 % (12-44); MEAN CORPUSCULAR HEMOGLOBIN 33 pg (25-34); MEAN CORPUSCULAR HGB CONC 34 g/dL (32-36); MEAN CORPUSCULAR VOLUME 98 fL (80-99); MEAN PLATELET VOLUME 11.3 fL (9.0-12.2); MONOCYTES # (AUTO) 1.7 10^3/uL (0.0-1.0); MONOCYTES % (AUTO) 2 % (0-12); NEUTROPHILS # (AUTO) 59.6 10^3/uL (1.8-7.8); NEUTROPHILS % (AUTO) 79 % (42-75); PLATELET COUNT 280 10^3/uL (130-400)
[2021-03-12 04:50] LABS: WHITE BLOOD COUNT 75.4 10^3/uL (4.3-11.0)
[2021-03-12 04:58] LABS: CALCIUM 7.8 MG/DL (8.5-10.1)
[2021-03-12 05:02] LABS: PHOSPHORUS 5.1 MG/DL (2.3-4.7)
[2021-03-12 05:03] LABS: CREATININE SERUM 1.05 MG/DL (0.60-1.30)
[2021-03-12 05:05] LABS: MAGNESIUM 2.2 MG/DL (1.6-2.4)
[2021-03-12] MEDS: POTASSIUM CL 10MEQ/50ML IVPB 50 ML IV SCH (05:15)
[2021-03-12] MEDS: MAGNESIUM 1 GM/100 ML IVPB 100 ML IV SCH (05:15)
[2021-03-12] MEDS: KCL 20 MEQ TAB (K-DUR) PO SCH (05:15)
[2021-03-12] MEDS: CATHETER FLUSH 10 ML SYR IV SCH ×3 (05:16→23:30)
[2021-03-12 05:35] LABS: BAND NEUTROPHILS 6 %; EOSINOPHILS % (MANUAL) 1 %; LYMPHOCYTES % (MANUAL) 2 %; METAMYELOCYTES % 3 %; MONOCYTES % (MANUAL) 3 %; NEUTROPHILS % (MANUAL) 85 %; RBC MORPH NORMAL
[2021-03-12] MEDS: DexMEDEtomidine 250 ML DRIP 250 ML IV SCH ×2 (05:37→16:08)
[2021-03-12] MEDS: SENNA W/DOCUSATE (SENOKOT S) TABLET PO SCH ×2 (08:11→20:19)
[2021-03-12] MEDS: ALPRAZolam 0.25 MG (XANAX) TAB PO PRN (08:11)
[2021-03-12] MEDS: ASPIRIN 81 MG CHEW (CHILDREN'S ASA) PO SCH (08:11)
[2021-03-12] MEDS ORDERED: NS IV 1000 ML 2,000 ML ONE (08:53)
[2021-03-12] MEDS ORDERED: LORazepam INJ 2 MG/ML (ATIVAN) VIAL ONE ×2 (08:54→12:30)
--- NOTE | 2021-03-12 09:08 | Tele-ICU Progress Note ---
Subjective Date Seen by a Provider: Mar 12, 2021 Time Seen by a Provider: 07:00 Subjective/Events-last exam This virtual visit was conducted using real time audio/video. Thank you for asking us to see this patient for respiratory insufficiency and distress. Increased anxiety. HPC: Recent events: Increased anxiety,WCC, BUN. On BiPAP 15, 100%. PE: VSS O2 sat 95 % on BiPAP. HEENT: No obvious masses, adenopathy or JVD. Chest: Decr BS. CV: RRR S1 S2 No murmur or added sounds. Abd: Non-tender. Bowel sounds Y. : Unremarkable. Cee Y. DECORATOR INSPECTOR/psychiatric: Alert and oriented, grossly intact. No obvious focal findings. Extremities: 1+ edema. Capillary refill < 3 seconds. Skin: unremarkable. Results: Elevated BUN, WCC, BG 154. Decreased Na 134. CXR 03/09 B infilts, unchanged. A/P: Respiratory insufficiency/distress: Cont BiPAP Available chart/ vitals / labs / images reviewed. Video assessment done using teleICU camera, rest of exam as per RN. Monitor for increasing oxygenation needs and/or need for intubation. Critical Care: critically ill patient. Add PRN Ativan, give 2 L NS IV bolus. Monitor WCC on Meropenem. Discussed with RN Cynthia. Asked RN to reach out to eICU if any questions or conc erns later. Time spent with patient/family/coordination of care with other health professionals (mins):25 Sepsis Event Evaluation Height, Weight, BMI Height: 5'8.00" Weight: 260lbs. 0.0oz. 117.502857pq; 38.87 BMI Method: Exam Exam Patient acknowledged, consented, and participated in this virtual visit which was conducted using real time audio/video Vital Signs Date Time Temp Pulse Resp B/P (MAP) Pulse Ox O2 Delivery O2 Flow Rate FiO2 03/12/21 08:00 77 27 84/27 (39) 100 NIV Bilevel 100.00 03/12/21 07:30 77 99/58 (72) 94 NIV Bilevel 100.00 03/12/21 07:00 86 03/12/21 07:00 75 82/46 (59) 100 NIV Bilevel 100.00 03/12/21 06:42 91 37 100 65.00 03/12/21 06:00 93 24 112/65 (81) 100 NIV Bilevel 100.00 03/12/21 05:37 109 147/80 03/12/21 05:00 86 27 138/78 (98) 100 NIV Bilevel 100.00 03/12/21 04:00 96 NIV Bilevel 100 03/12/21 04:00 93 28 126/76 (93) 100 NIV Bilevel 100.00 03/12/21 03:40 NIV Bilevel 100.00 03/12/21 03:00 86 26 131/84 (100) 98 NIV Bilevel 65.00 03/12/21 02:49 92 23 94 65.00 03/12/21 02:00 62 21 100/45 (63) 98 NIV Bilevel 65.00 03/12/21 01:00 70 03/12/21 01:00 67 24 127/74 (91) 96 NIV Bilevel 65.00 03/12/21 00:00 70 24 128/60 (82) 96 NIV Bilevel 65.00 03/12/21 00:00 96 NIV Bilevel 65 03/11/21 23:00 61 20 112/56 (74) 97 NIV Bilevel 65.00 03/11/21 22:00 76 21 111/55 (73) 96 NIV Bilevel 65.00 03/11/21 21:53 64 20 96 65.00 03/11/21 21:00 75 22 123/65 (84) 94 NIV Bilevel 65.00 03/11/21 20:20 NIV Bilevel 65.00 03/11/21 20:00 NIV Bilevel 75.00 03/11/21 20:00 96 NIV Bilevel 75 03/11/21 20:00 77 20 134/71 (92) 97 NIV Bilevel 75.00 03/11/21 19:59 135 131/83 03/11/21 19:34 125 29 92 65.00 03/11/21 19:14 35.6 03/11/21 19:00 80 03/11/21 19:00 80 20 122/56 (78) 91 NIV Bilevel 70.00 03/11/21 18:00 75 18 114/67 (83) 93 NIV Bilevel 70.00 03/11/21 17:00 76 21 112/66 (81) 97 NIV Bilevel 70.00 03/11/21 16:00 98 17 155/73 (100) 95 NIV Bilevel 70.00 03/11/21 16:00 96 NIV Bilevel 70 03/11/21 16:00 35.6 03/11/21 15:00 103 16 145/62 (89) 93 NIV Bilevel 70.00 03/11/21 14:25 94 Vapotherm 40.00 100 03/11/21 14:00 56 21 136/49 (78) 95 NIV Bilevel 70.00 03/11/21 13:00 58 03/11/21 13:00 52 19 96/54 (79) 99 NIV Bilevel 70.00 03/11/21 12:00 96 NIV Bilevel 70 03/11/21 12:00 61 48 130/63 (79) 98 NIV Bilevel 70.00 03/11/21 11:00 67 24 116/60 (78) 96 NIV Bilevel 70.00 03/11/21 10:56 67 24 97 70.00 03/11/21 10:00 62 19 91/51 (64) 97 NIV Bilevel 70.00 I & O 03/12/21 07:00 Intake Total 2135 ml Output Total 1875 ml Balance 260 ml Height & Weight Height: 5'8.00" Weight: 260lbs. 0.0oz. 117.521402ky; 38.87 BMI Method: General Appearance: No Apparent Distress, WD/WN, Anxious, Chronically ill, Other (PHYSICAL EXAM PER ATTENDING PHYSICIAN) HEENT: PERRL/EOMI, Normal ENT Inspection, Pharynx Normal, Moist Mucous Membranes Neck: Full Range of Motion, Normal Inspection, Non Tender Respiratory: Lungs Clear, Decreased Breath Sounds Cardiovascular: Regular Rate, Rhythm Capillary Refill: Less Than 3 Seconds Peripheral Pulses: 1+ Dorsalis Pedis (R), 1+ Left Dors-Pedis (L) Gastrointestinal: normal bowel sounds, non tender; No distended, No guarding, No rebound Extremity: Normal Capillary Refill, Normal Inspection, Normal Range of Motion, Non Tender, No Calf Tenderness, No Pedal Edema Neurologic/Psychiatric: Alert, Oriented x3 Skin: Normal Color, Warm/Dry Lymphatic: No Adenopathy Results Lab Laboratory Tests 03/11/21 04:15 03/12/21 04:11 Assessment/Plan Assessment/Plan See free text Critical Care: Critically Ill Patient Time spent on discussion(mins): 0 JOHNATHAN MICHAEL MD Mar 12, 2021 09:08
[2021-03-12] MEDS ORDERED: LORazepam INJ 2 MG/ML (ATIVAN) VIAL IVP PRN (09:15)
[2021-03-12] MEDS: NS IV 1000 ML 1,000 ML IV SCH ×3 (09:15→14:00)
[2021-03-12] MEDS ORDERED: PROPOFOL DRIP (ICU) 100 ML IV ONE (12:06)
[2021-03-12] MEDS ORDERED: ETOMIDATE IV SOLN 20 MG/10 ML VIAL IV ONE ×2 (12:30→13:50)
--- NOTE | 2021-03-12 13:11 | Anesthesia-Procedure Note ---
Procedures/Interventions Procedure Start/Stop/Diagnosis Date of Procedure: Mar 12, 2021 Start Time: 12:40 Referring Physician: Gabino Preprocedural Diagnosis: Covid Resp Failure Brief History Called in by housekeeping room attendant for possible intubation and A-line. Sup advised RT was going to attempt intubation. On arrival, RT's ventilating with BVM, pt was already sedated with propofol and paralyzed with 50mg Rocuronium. Glidescope #4 Gr 1 view. #8.0 ETT passed easily and secured at 26 lip. BS coarse B/L sats improved to upper 80's low 90's. Positive color change on ETCO2 detector. RT secured tube and vent settings per EICU physician. Rt radial A- line place with 20g Arrow cath x2 attempts. Good blood return and waveform on monitor. Wrist was prepped with chlorhexidine and catheter secured with sterile op site. Report to RN. Stop Time: 13:00 Intubation RSI: Yes 100% pre-Ox, [id number]: Yes Videoscope used: Yes Grade View: 1 Medications: Propofol, Rocuronium Mask Ventilation: positive Positive End Tide CO2: Yes Breath Sounds after Intubation: bilateral-equal ETT Securred @ (cm): 26 Intubated with ease: Yes Intubation Complications: O2 saturation decreased Post Intubation Xray-done: Yes Arterial Line Arterial Line Catheter: 20G Type: Radial Location: Right Procedure: prepped, draped in sterile fashion, good wave-form was obtained, patient tolerated procedure well, no immediate complications, post procedure area cleaned, post procedure dressing applied MAYTE HODGE CRNA Mar 12, 2021 13:11
[2021-03-12] MEDS: PROPOFOL DRIP (ICU) 100 ML IV SCH ×4 (13:25→23:23)
--- NOTE | 2021-03-12 13:34 | Diagnostic Imaging Report ---
Portable supine chest at 12:55. Indication: Respiratory distress In the interval since the prior exam of 03/09/2021 the patient has been intubated. The ET tube tip overlies the midportion of the tracheal air shadow seems to be in good position. There has also been insertion of an NG line. The tip of the NG line is not visualized distal to the gastroesophageal junction. If further evaluation position of the tip is desired, then an abdomen study would be recommended. The appearance of the chest has improved as the left lung base does seem better aerated. There is only a small amount of residual density still present in this area. The right lung base continues to show some atelectasis/infiltrate. The heart is stable. The mediastinum is not widened. The osseous structures are intact. Impression: 1. The patient has been intubated and the ET tube appears to be in good position. The tip of the NG line however is not well-visualized. Recommendations as above. 2. The appearance of chest has improved as the left lung base does seem better aerated. Dictated by: Dictated on workstation # [id number]
[2021-03-12 13:39] LABS: ABG BASE EXCESS -10.7 MMOL/L (-2.5-2.5); ABG OXYGEN SATURATION 98 % (94-100); ABG PCO2 61 MMHG (35-45); ABG PO2 147 MMHG (79-93); ABG TCO2 19.9 MMOL/L (21.0-31.0)
[2021-03-12 13:44] LABS: ABG PH 7.08 (7.37-7.43); ALLENS TEST ARTLINE; INSPIRED O2 100%; VENTILATOR YES
[2021-03-12 13:45] LABS: PATIENT TEMP 35.6
[2021-03-12] MEDS ORDERED: NS IV 1000 ML 1,000 ML IV SCH (13:45)
[2021-03-12] MEDS ORDERED: NS IV 1000 ML 1,000 ML ONE (13:45)
[2021-03-12] MEDS ORDERED: ROCURONIUM 50 MG/5 ML (ZEMURON) VIAL IV ONE (13:50)
[2021-03-12] MEDS: NOREPINEPHRINE 8 MG/250 ML 250 ML IV SCH ×2 (14:31→19:45)
--- NOTE | 2021-03-12 14:48 | Progress Note - Hospitalist ---
Subjective HPI/CC On Admission Date Seen by Provider: Mar 12, 2021 Time Seen by Provider: 14:41 CC: Covid-19 pneumonia HPI: This is a 76yoWM clinic pt of [facility] who presented SOB following recent diagnosis of Covid-19 on 02/20/2021. He has progressed quickly, require vapotherm now, meeting criteria for Actemra. CXR appears to have severe infiltrates in the five lobes. Currently we will restart all of his home meds and monitor closely. He is high risk for decompensation. Patient has a colostomy and has had good output. Subjective/Events-last exam Patient's respiratory status decompensated on high flow oxygen requiring emergent mechanical ventilation. Currently he is sedated on ventilation 100% FiO2 20 of PEEP with saturations back up 9697% we are in the process of tapering oxygen requirements and he appears to be ventilating easily. Objective Exam Vital Signs Vital Signs Date Time Temp Pulse Resp B/P (MAP) Pulse Ox O2 Delivery O2 Flow Rate FiO2 03/12/21 14:35 Mechanical Ventilator 90.00 03/12/21 14:31 122 64/32 03/12/21 12:57 18 97 100 03/12/21 11:47 36.5 Capillary Refill : Less Than 3 Seconds General Appearance: Chronically ill, Obese Respiratory: Other (Bilateral fine rales with scattered rhonchi no wheezing noted breath sounds equal bilateral) Cardiovascular: Regular Rate, Rhythm, No Gallop, No JVD, No Murmur, Normal Peripheral Pulses Gastrointestinal: Other (Mild distention no rigidity noted bowel sounds absent no organomegaly noted no mass but is obvious to palpation. Colostomy draining very small amount of brown liquid no blood bright red or melena.) Results/Procedures Lab Laboratory Tests 03/12/21 04:11 Patient resulted labs reviewed. Assessment/Plan Assessment and Plan Assess & Plan/Chief Complaint Covid 19/ Acute respiratory failure -Continue Dexamethasone and Enoxaparin for treatment of covid and DVT prophylaxis. -Currently patient is in the ICU using NIV Bilevel for respiratory support but has tolerated Vapotherm with meals. -Patient is post tocilizumab -Monitor for now 03/12 progressive respiratory failure requiring mechanical ventilation secondary to COVID-19. With this alone his prognosis is quite poor. Added to this fact is the fact that his white count is up to over 70,000 neutrophil predominant for which broad-spectrum antibiotics been recently started. Stool has been sent for C. difficile but as unstable as this patient is he is not a candidate for any form of invasive procedure. Considering this age and medical comorbidities survival is highly unlikely. Leukocytosis -WBC's are up to 49.4 today, unsure of what is causing it. -Procalcitonin lvls are low and no history of fevers. Chest X ray showed no lobar pneumonia. -Sputum culture showed many WBC's in the lungs w/ mixed normal respiratory bacteria. -Pathology report showed no malignant abnormalities and said it was a reactive process. Could just be due ti Steroids and COVID infection. Continue to monitor. Liver Function -Patients AST (83) and ALT (234) were elevated today compared to 2 days ago. Patient has had elevated AST/ALT lvls in the past. -Believe it may be due to the covid. For now follow closely. History of renal failure - appears stable at this time History of Rectal Carcinoma -Ostomy is functioning w/ no redness or swelling. No need for additional workup at this time. Bradycardia -Believe it to be a side effect of the dexamethasone and Covid. Appears hemodynamically stable. DVT Prophylaxis -Enoxaparin Critical Care Critically Ill Patient AMMON HENDRICKS MD Mar 12, 2021 14:48
[2021-03-12] MEDS ORDERED: fentaNYL DRIP PRE-MIX 250 ML IV ONE (15:08)
[2021-03-12] MEDS: fentaNYL DRIP PRE-MIX 250 ML IV SCH ×2 (15:20→19:47)
[2021-03-12 16:18] LABS: ABG BASE EXCESS -8.7 MMOL/L (-2.5-2.5); ABG OXYGEN SATURATION 98 % (94-100); ABG PCO2 49 MMHG (35-45); ABG PO2 173 MMHG (79-93); ABG TCO2 19.6 MMOL/L (21.0-31.0)
[2021-03-12 16:28] LABS: ABG PH 7.19 (7.37-7.43)
[2021-03-12 16:29] LABS: ALLENS TEST ARTLINE; INSPIRED O2 90%; PATIENT TEMP 36.6; VENTILATOR YES
[2021-03-12] MEDS: CISATRACURIUM DRIP 250 ML IV SCH ×3 (17:03→22:08)
[2021-03-12] MEDS: VANCOMYCIN 125 MG CAPSULE PO SCH (22:10)
[2021-03-13] VITALS (22 sets, daily range): BP systolic 79–138; BP diastolic 43–55
[2021-03-13] MEDS: inSUlin ASPART (NovoLOG) 1 UNIT/0.01 ML (CHARGE PER UNIT) SC SCH ×3 (00:19→12:23)
[2021-03-13] MEDS: CISATRACURIUM DRIP 250 ML IV SCH ×3 (00:26→08:40)
[2021-03-13] MEDS: RT-ALBUTEROL HFA 8.5 GM INHALER IH SCH ×4 (02:25→14:43)
[2021-03-13] MEDS: MEROPENEM 500 MG in WATER (STERILE) FOR INJECTION 10 ML IV SCH ×2 (02:42→08:41)
[2021-03-13] MEDS: PROPOFOL DRIP (ICU) 100 ML IV SCH ×4 (02:43→12:20)
[2021-03-13] MEDS: fentaNYL DRIP PRE-MIX 250 ML IV SCH ×3 (02:43→16:10)
[2021-03-13] MEDS: NS IV 1000 ML 1,000 ML IV SCH (02:44)
[2021-03-13] MEDS: NOREPINEPHRINE 8 MG/250 ML 250 ML IV SCH ×4 (02:49→16:12)
[2021-03-13] MEDS: DexMEDEtomidine 250 ML DRIP 250 ML IV SCH ×2 (02:51→08:40)
[2021-03-13 03:13] LABS: ABG BASE EXCESS -10.8 MMOL/L (-2.5-2.5); ABG OXYGEN SATURATION 97 % (94-100); ABG PCO2 61 MMHG (35-45); ABG PO2 127 MMHG (79-93); BASOPHILS # (AUTO) 0.2 10^3/uL (0.0-0.1); BASOPHILS % (AUTO) 0 % (0-10); EOSINOPHILS # (AUTO) 0.1 10^3/uL (0.0-0.3); EOSINOPHILS % (AUTO) 0 % (0-10); HEMATOCRIT 22 % (40-54); HEMOGLOBIN 7.9 g/dL (13.3-17.7); LYMPHOCYTES # (AUTO) 6.2 10^3/uL (1.0-4.0); LYMPHOCYTES % (AUTO) 5 % (12-44); MEAN CORPUSCULAR HEMOGLOBIN 37 pg (25-34); MEAN CORPUSCULAR HGB CONC 35 g/dL (32-36); MEAN CORPUSCULAR VOLUME 104 fL (80-99); MEAN PLATELET VOLUME 10.9 fL (9.0-12.2); MONOCYTES % (AUTO) 3 % (0-12); NEUTROPHILS # (AUTO) 110.1 10^3/uL (1.8-7.8); NEUTROPHILS % (AUTO) 81 % (42-75); PLATELET COUNT 316 10^3/uL (130-400)
[2021-03-13 03:16] LABS: ABG PH 7.09 (7.37-7.43)
[2021-03-13 03:17] LABS: ALLENS TEST ART LINE; INSPIRED O2 80%; PATIENT TEMP 38.1; VENTILATOR YES
[2021-03-13 03:30] LABS: CALCIUM 6.5 MG/DL (8.5-10.1)
[2021-03-13 03:34] LABS: PHOSPHORUS 6.2 MG/DL (2.3-4.7)
[2021-03-13 03:35] LABS: CREATININE SERUM 1.85 MG/DL (0.60-1.30)
[2021-03-13 03:37] LABS: MAGNESIUM 2.6 MG/DL (1.6-2.4)
[2021-03-13] MEDS ORDERED: SODIUM BICARB 8.4% 50 MEQ/50 ML (ABBOTT) SYR INJ ONE (03:45)
[2021-03-13 03:48] LABS: POTASSIUM 6.6 MMOL/L (3.6-5.0)
[2021-03-13] MEDS ORDERED: inSUlin (REGULAR) HUMAN 1 UNIT/0.01 ML (CHARGE PER UNIT) IV ONE (04:00)
[2021-03-13] MEDS ORDERED: CALCIUM GLUCONATE 10% INJ 4.65 MEQ in NS (IVPB) 50 ML IV ONE (04:00)
[2021-03-13] MEDS ORDERED: DEXTROSE 50% 50 ML (IMS) SYR IV ONE (04:00)
[2021-03-13] MEDS ORDERED: SOD POLYSTERENE 15 GM/60 ML (KAYEXALATE) UNIT DOSE PO ONE (04:00)
[2021-03-13] MEDS ORDERED: CALCIUM GLUC. 10% 4.65 MEQ/10 ML VIAL ONE (04:02)
[2021-03-13] MEDS ORDERED: DEXTROSE 50% 50 ML (IMS) SYR ONE (04:03)
[2021-03-13] MEDS: MAGNESIUM 1 GM/100 ML IVPB 100 ML IV SCH (04:56)
[2021-03-13] MEDS: KCL 20 MEQ TAB (K-DUR) PO SCH (04:56)
[2021-03-13] MEDS: POTASSIUM CL 10MEQ/50ML IVPB 50 ML IV SCH (04:56)
[2021-03-13] MEDS: VANCOMYCIN 125 MG CAPSULE PO SCH (06:15)
[2021-03-13] MEDS: CATHETER FLUSH 10 ML SYR IV SCH ×2 (06:34→17:55)
[2021-03-13] MEDS ORDERED: PANTOPRAZOLE 40 MG (PROTONIX) VIAL IV SCH (09:00)
[2021-03-13] MEDS: ENOXAPARIN 300 MG/3 ML (LOVENOX) MULTI-DOSE VIAL SQ SCH (10:54)
[2021-03-13] MEDS: ASPIRIN 81 MG CHEW (CHILDREN'S ASA) PO SCH (10:54)
[2021-03-13] MEDS: SENNA W/DOCUSATE (SENOKOT S) TABLET PO SCH (10:54)
--- NOTE | 2021-03-13 11:02 | Tele-ICU Progress Note ---
Subjective Date Seen by a Provider: Mar 13, 2021 Time Seen by a Provider: 09:05 Subjective/Events-last exam This virtual visit was conducted using real time audio/video. Thank you for asking us to see this patient for respiratory insufficiency and distress due to Covid pna with respiratory failure. HPC: Recent events: Intubated 03/12 at approx 12:30 PM for increased oxygen needs. On 3 sedatives. Placed on Levophed for worsening BP despite 3 L in NS boluses. Paralysed as bucking ventilator. Received insulin and Kayexalate. PE: Sedated and paralysed. HR 90-100 NSR. SBP 90-100 on Levo. O2 sat 95 % on 80%/16. HEENT: No obvious masses, adenopathy or JVD. Chest: Decr BS. CV: RRR S1 S2 No murmur or added sounds. Abd: Non-tender. Bowel sounds Y. : Unremarkable. Cee Y. NETWORK ACCOUNT MANAGER/psychiatric: No obvious focal findings. Extremities: 1+ edema. Capillary refill < 3 seconds. Skin: unremarkable. Results: Elevated BUN 82, Cr. 1.85, WCC 136K, BG 159. CXR 03/12 B infilts, ETT position OK. ABG this AM: 7.//127/base def -10.8. A/P: Respiratory insufficiency/distress: Continue full support. Available chart/ vitals / labs /images reviewed. Video assessment done using teleICU camera, rest of exam as per RN. Critical Care: critically ill patient. Hospitalist will speak with family regarding extremely poor prognosis despite multiple interventions. Cont. Meropenem, vanco., sedatives, Levophed. Discussed with GOLDEN Marie. Asked RN to reach out to eICU if any questions or concerns later. Time spent with patient/coordination of care with other health professionals (mins):30 Sepsis Event Evaluation Height, Weight, BMI Height: 5'8.00" Weight: 260lbs. 0.0oz. 117.147848ek; 38.87 BMI Method: Exam Exam Patient acknowledged, consented, and participated in this virtual visit which was conducted using real time audio/video Vital Signs Date Time Temp Pulse Resp B/P (MAP) Pulse Ox O2 Delivery O2 Flow Rate FiO2 03/13/21 10:00 38.2 111 100/44 (62) 96 Mechanical Ventilator 80.00 03/13/21 09:00 38.1 109 15 107/43 (64) 95 Mechanical Ventilator 80.00 03/13/21 08:41 107 97/42 03/13/21 08:40 107 92/47 03/13/21 08:39 107 03/13/21 08:00 38.3 108 26 97/45 (62) 95 Mechanical Ventilator 80.00 03/13/21 07:04 105 26 96 80 03/13/21 07:00 38.3 107 25 90/44 (59) 95 Mechanical Ventilator 80.00 03/13/21 07:00 111 03/13/21 06:46 38.3 03/13/21 06:16 115 138/48 03/13/21 06:16 38.2 03/13/21 06:00 38.2 113 25 107/44 (65) 95 Mechanical Ventilator 80.00 03/13/21 05:00 38.0 115 26 138/48 (78) 94 Mechanical Ventilator 80.00 03/13/21 04:00 94 Mechanical Ventilator 80.00 03/13/21 04:00 38.4 109 26 113/49 (70) 94 Mechanical Ventilator 80.00 03/13/21 03:00 38.1 109 25 110/46 (67) 94 Mechanical Ventilator 80.00 03/13/21 02:51 109 102/51 03/13/21 02:49 109 102/51 03/13/21 02:43 109 102/51 03/13/21 02:25 109 26 93 80 03/13/21 02:00 38.2 110 25 94/48 (63) 95 Mechanical Ventilator 80.00 03/13/21 01:00 110 03/13/21 01:00 38.1 110 25 106/51 (69) 95 Mechanical Ventilator 80.00 03/13/21 00:00 94 Mechanical Ventilator 80.00 03/13/21 00:00 38.0 111 26 109/52 (71) 95 Mechanical Ventilator 80.00 03/12/21 23:23 109 112/51 03/12/21 23:00 37.8 108 25 104/50 (68) 95 Mechanical Ventilator 80.00 03/12/21 22:00 37.7 112 26 123/53 (76) 94 Mechanical Ventilator 80.00 03/12/21 21:35 109 26 93 80 03/12/21 21:00 36.9 107 26 112/50 (70) 94 Mechanical Ventilator 80.00 03/12/21 20:00 36.8 107 25 118/50 (72) 94 Mechanical Ventilator 80.00 03/12/21 20:00 94 Mechanical Ventilator 80.00 03/12/21 19:46 105 126/50 03/12/21 19:45 105 126/50 03/12/21 19:00 106 03/12/21 19:00 36.6 106 26 115/48 (70) 94 Mechanical Ventilator 80.00 03/12/21 18:22 105 26 94 80 03/12/21 18:00 36.5 106 26 126/47 (73) 93 Mechanical Ventilator 80.00 03/12/21 17:19 80.00 03/12/21 17:00 36.7 87 12 121/47 (71) 92 Mechanical Ventilator 75.00 03/12/21 16:36 Mechanical Ventilator 75.00 03/12/21 16:30 75.00 03/12/21 16:27 94 Mechanical Ventilator 100.00 03/12/21 16:10 74 100/47 03/12/21 16:08 74 102/47 03/12/21 16:00 36.5 71 16 86/47 (60) 97 Mechanical Ventilator 90.00 03/12/21 15:00 37.1 73 23 96/51 (66) 96 Mechanical Ventilator 90.00 03/12/21 14:54 74 30 95 90 03/12/21 14:35 Mechanical Ventilator 90.00 03/12/21 14:31 122 64/32 03/12/21 14:00 37.7 117 21 107/53 (71) 96 Mechanical Ventilator 100.00 03/12/21 13:25 122 133/55 03/12/21 13:00 131 16 172/60 (97) 96 Mechanical Ventilator 100.00 03/12/21 13:00 119 03/12/21 12:57 133 18 97 100 03/12/21 12:55 94 Mechanical Ventilator 100.00 03/12/21 12:00 112 33 126/76 (93) 96 NIV Bilevel 100.00 03/12/21 11:47 36.5 03/12/21 11:00 88 23 108/57 (74) 95 NIV Bilevel 100.00 I & O 03/13/21 07:00 Intake Total 3170 ml Output Total 1355 ml Balance 1815 ml Height & Weight Height: 5'8.00" Weight: 260lbs. 0.0oz. 117.347250pq; 38.87 BMI Method: General Appearance: Chronically ill, Obese HEENT: PERRL/EOMI, Normal ENT Inspection, Pharynx Normal, Moist Mucous Membranes Neck: Full Range of Motion, Normal Inspection, Non Tender Respiratory: Other (Bilateral fine rales with scattered rhonchi no wheezing noted breath sounds equal bilateral) Cardiovascular: Regular Rate, Rhythm, No Gallop, No JVD, No Murmur, Normal Peripheral Pulses Capillary Refill: Less Than 3 Seconds Peripheral Pulses: 1+ Dorsalis Pedis (R), 1+ Left Dors-Pedis (L) Gastrointestinal: normal bowel sounds, non tender; No distended, No guarding, No rebound Extremity: Normal Capillary Refill, Normal Inspection, Normal Range of Motion, Non Tender, No Calf Tenderness, No Pedal Edema Neurologic/Psychiatric: Alert, Oriented x3 Skin: Normal Color, Warm/Dry Lymphatic: No Adenopathy Results Lab Laboratory Tests 03/12/21 04:11 03/13/21 03:00 Assessment/Plan Assessment/Plan See free text. Critical Care: Ventilator Management Time spent on discussion(mins): 0 JOHNATHAN MICHAEL MD Mar 13, 2021 11:02
[2021-03-13] MEDS: PHENYLEPHRINE INJECTION 20 MG in NS (IVPB) 250 ML IV SCH ×2 (13:27→16:09)
--- NOTE | 2021-03-13 16:52 | Discharge Summary ---
Diagnosis/Chief Complaint Date of Admission Mar 03, 2021 at 14:16 Date of Discharge Admission Diagnosis Assessment: Severe COVID-19 pneumonia with hypoxia High risk for decompensation with ventilation status post Actemra on 03/04/2021 Colostomy status Elevated blood pressure Plan: Actemra Monitor chest x-ray Vapotherm and BiPAP High risk for ventilation requirement Primary Care Tima Garcia Discharge Diagnosis (1) COVID-19 Status: Acute (2) Respiratory failure Status: Acute Discharge Summary Discharge Physical Exam Allergies: Coded Allergies: No Known Drug Allergies (Unverified , 06/10/18) Vitals & I&Os Vital Signs Date Time Temp Pulse Resp B/P (MAP) Pulse Ox O2 Delivery O2 Flow Rate FiO2 03/13/21 16:12 117 87/48 03/13/21 16:00 25 93 Mechanical Ventilator 75.00 03/13/21 15:00 38.0 03/13/21 14:45 75 General Appearance: Other ( ) Hospital Course Admitted the hospital with pneumonia and respiratory failure secondary to COVID- 19 acute infection. He had a progressive downhill course progressing to the need for mechanical ventilation. Despite broad-spectrum antibiotics he developed severe leukocytosis little over 130,000 white count neutrophil predominance with loss of bowel sounds. He was too unstable for further investigation. Discussed terminal prognosis with family members who agreed to comfort care. They were able to visit him prior to expiration and he quickly after extubation. Suspect likely bowel infarction and secondary infection complicating his respiratory failure. Labs (last 24 hrs) Laboratory Tests 03/12/21 23:52: Glucometer 166H 03/13/21 03:00: White Blood Count 136.0*H, Red Blood Count 2.16L, Hemoglobin 7.9L, Hematocrit 22L, Mean Corpuscular Volume 104H, Mean Corpuscular Hemoglobin 37H, Mean Corpuscular Hemoglobin Concent 35, Red Cell Distribution Width 14.1, Platelet Co unt 316, Mean Platelet Volume 10.9, Immature Granulocyte % (Auto) 11, Neutrophils (%) (Auto) 81H, Lymphocytes (%) (Auto) 5L, Monocytes (%) (Auto) 3, Eosinophils (%) (Auto) 0, Basophils (%) (Auto) 0, Neutrophils # (Auto) 110.1H, Lymphocytes # (Auto) 6.2H, Monocytes # (Auto) 4.0H, Eosinophils # (Auto) 0.1, Basophils # (Auto) 0.2H, Immature Granulocyte # (Auto) 15.5H, Blood Gas Puncture Site ART LINE, Blood Gas Patient Temperature 38.1, Arterial Blood pH 7.09*L, Arterial Blood Partial Pressure CO2 61H, Arterial Blood Partial Pressure O2 127H , Arterial Blood HCO3 17*L, Arterial Blood Total CO2 19.0L, Arterial Blood Oxygen Saturation 97, Arterial Blood Base Excess -10.8L, Enrrique Test ART LINE, Blood Gas Ventilator Setting YES, Blood Gas Inspired Oxygen 80%, Sodium Level 135, Potassium Level 6.6#*H, Chloride Level 111H, Carbon Dioxide Level 13L, Anion Gap 11, Blood Urea Nitrogen 82H, Creatinine 1.85H, Estimat Glomerular Filtration Rate 36, BUN/Creatinine Ratio 44, Glucose Level 159H, Calcium Level 6.5L, Phosphorus Level 6.2H, Magnesium Level 2.6H 03/13/21 11:32: Glucometer 208H Microbiology 03/12/21 C. difficile DNA Amplification, Resulted Pending 03/12/21 C. difficile GDH Antigen & Toxins - Preliminary, Resulted 03/09/21 Gram Stain - Final, Complete 03/09/21 Sputum Culture - Final, Complete Usual upper respiratory bubba 03/09/21 Blood Culture - Preliminary, Resulted No growth Patient resulted labs reviewed. Pending Labs Laboratory Tests 03/13/21 11:32: Glucometer 208 Discussion & Recommendations Discharge Planning: <30 minutes discharge planning Discharge Home Medications: Active Scripts Active Reported Aleve (Naproxen Sodium) 220 Mg Tablet 220 Mg PO BID PRN Fish Oil 1,000 mg Softgel ([place]-3/Dha/Epa/Fish Oil) 1 Each Capsule 1 Each PO BID Ketoconazole 120 Ml Shampoo 1 Applic TOP Q48H Dexamethasone 6 Mg Tablet 6 Mg PO DAILY STARTED TAKING 03/02/2021 #5 5 DAY SUPPLY Aspirin 81 Mg Tab.chew 81 Mg PO DAILY Instructions to patient/family Please see electronic discharge instructions given to patient. Copy Copies To 1: [facility] Problem Qualifiers (1) Respiratory failure: Chronicity: acute Respiratory failure complication: hypoxia Qualified Codes: J96.01 - Acute respiratory failure with hypoxia AMMON HENDRICKS MD Mar 13, 2021 16:52
[2021-03-13] MEDS ORDERED: fentaNYL INJ 100 MCG/2 ML AMP ONE (17:10)
[2021-03-13] MEDS ORDERED: LORazepam INJ 2 MG/ML (ATIVAN) VIAL IVP PRN (17:15)
[2021-03-13] MEDS ORDERED: fentaNYL INJ 100 MCG/2 ML AMP IVP ONE (17:15)
== END 2021-03-13 20:08 | disposition expired | DRG 208 ==
LOC: EDUNIT# 12:56 → ER 12:57 → 4TH 14:16 → ICU 03-07 18:15
PROVIDERS: ADMIT Internal Medicine; ATTEND Internal Medicine
PROC: 5A09557 Assistance with Respiratory Ventilation, Greater than 96 Consecutive Hours, Continuous Positive Airway Pressure (ICD-10-PCS; 2021-03-06)
PROC: 5A1945Z Respiratory Ventilation, 24-96 Consecutive Hours (ICD-10-PCS; principal; 2021-03-12)
PROC: 0BH17EZ Insertion of Endotracheal Airway into Trachea, Via Natural or Artificial Opening (ICD-10-PCS; 2021-03-12)
PROC: 03HY32Z Insertion of Monitoring Device into Upper Artery, Percutaneous Approach (ICD-10-PCS; 2021-03-12)
DX: U07.1 COVID-19 (principal); J96.01 Acute respiratory failure with hypoxia; J12.82 Pneumonia due to coronavirus disease 2019; J15.9 Unspecified bacterial pneumonia; M19.90 Unspecified osteoarthritis, unspecified site; R00.1 Bradycardia, unspecified; R73.9 Hyperglycemia, unspecified; T38.0X5A Adverse effect of glucocorticoids and synthetic analogues, initial encounter; Z51.5 Encounter for palliative care; E11.9 Type 2 diabetes mellitus without complications; F41.9 Anxiety disorder, unspecified; E86.0 Dehydration; Z92.21 Personal history of antineoplastic chemotherapy; Z92.3 Personal history of irradiation; Z85.820 Personal history of malignant melanoma of skin; Z79.82 Long term (current) use of aspirin; Z79.899 Other long term (current) drug therapy; Z93.3 Colostomy status; Z85.048 Personal history of other malignant neoplasm of rectum, rectosigmoid junction, and anus
CPT/HCPCS: 36415; 71045; 80048; 80053; 80076; 81000; 82728; 82805; 82947; 83605; 83615; 83735; 84100; 84145; 84484; 85007; 85025; 85027; 85045; 85055; 85379; 85384; 85610; 85730; 86141; 87040; 87070; 87205; 87324; 87449; 87493; 93005; 93041; 94002; 94003; 94640; 94660; 94760; 94799